=== PATIENT | male | born 1930 | race Caucasian/White ===

== ENCOUNTER 2016-12-01 06:25 | Day surgery (SDC) | payer MEDICARE ==
[2016-12-01] VITALS (7 sets, daily range): BP systolic 110–177; BP diastolic 57–73; PULSE 57–60; RESP 14–18; TEMP 97.5–98.1; O2SAT 60–97
[~2016-12-01] VITALS: Ht 175.3 cm; Wt 76.8 kg
[~2016-12-01 06:25] MED LIST: AMIO200T PO; AMLO10TA2 PO; APIX5TAB PO; CARV12.5 PO; CILO50TA PO; CLAR10CA3 PO; CULT10CA4 PO; DOCU100C PO; DULE200A INH; FURO80TA PO; LACT10SO47 PO; LEVO88TA2 PO; LIPI40TA PO; MIRA33504 PO; OMEP20TA PO; RENATAB6 PO; SENN8.6T81 PO; TAMS0.4C4 PO; TRAM50TA PO; VENTAER INH; [UNRECOGNIZED DRUG - CODE] TOPICAL
[2016-12-01] MEDS ORDERED: INSULIN HUMAN REGULAR 1,000 UNITS/10 ML VIAL SQ PRN (07:00)
[2016-12-01] MEDS ORDERED: METOPROLOL TARTRATE 25 MG TAB PO PRN (07:00)
[2016-12-01] MEDS ORDERED: VANCOMYCIN HCL 1000 MG ON-CALL/NS 250 ML IV SCH ×2 (07:00)
[2016-12-01] MEDS ORDERED: LACTATED RINGER'S 1000 ML IV SCH (07:00)
[2016-12-01] MEDS ORDERED: SODIUM CHLORID 0.9% 500 ML IV SCH (07:00)
[2016-12-01] MEDS ORDERED: SODIUM CHLOR 0.9% 250 ML INJ 250 ML IV ONE (08:09)
[2016-12-01] MEDS ORDERED: PROPOFOL 200 MG/20 ML AMP IV ONE (08:09)
[2016-12-01] MEDS ORDERED: ePHEDrine/NS 50 MG/5 ML SYR IV ONE (08:09)
[2016-12-01 08:19] LABS: AUTOMATED NEUTROPHIL # 4.8 TH/MM3 (1.8-7.7); BASOPHIL # 0.1 TH/MM3 (0-0.2); EOSINOPHIL # 0.2 TH/MM3 (0-0.4); EOSINOPHIL % 3.6 % (0.0-4.0); HEMATOCRIT 29.1 % (39.0-51.0); HEMO FLAGS DIFF FINAL; LYMPH % 11.8 % (9.0-44.0); LYMPHOCYTE # 0.8 TH/MM3 (1.0-4.8); MEAN CORPUSCULAR HEMOGLOBIN 34.4 PG (27.0-34.0); MEAN CORPUSCULAR HGB CONC 32.8 % (32.0-36.0); NEUT % 69.6 % (16.0-70.0); PLATELET COUNT 211 TH/MM3 (150-450); RED BLOOD COUNT 2.77 MIL/MM3 (4.50-5.90); RED CELL DISTRIBUTION WIDTH 17.6 % (11.6-17.2); WHITE BLOOD COUNT 6.9 TH/MM3 (4.0-11.0)
[2016-12-01 08:26] LABS: APTT (PATIENT) 27.3 SEC (24.3-30.1); PROTHROMBIN TIME - PATIENT 10.8 SEC (9.8-11.6)
[2016-12-01] MEDS ORDERED: MELA5TAB15 PO (08:27)
[2016-12-01] MEDS ORDERED: LOSA25TA PO (08:27)
[2016-12-01] MEDS ORDERED: ZANT150T2 PO (08:27)
[2016-12-01] MEDS ORDERED: SEVEL800 PO (08:27)
[2016-12-01] MEDS ORDERED: ROPI0.25 PO (08:27)
[2016-12-01 08:33] LABS: BICARBONATE 28.5 MEQ/L (21.0-32.0); POTASSIUM 4.6 MEQ/L (3.5-5.1)
[2016-12-01] MEDS ORDERED: fentaNYL CITRATE 250 MCG/5 ML AMP ONE (09:29)
[2016-12-01] MEDS ORDERED: MIDAZOLAM HCL 5 MG/5 ML VIAL ONE (09:29)
[2016-12-01] MEDS ORDERED: LEVOFLOXACIN 500 MG PREMIX INJ 100 ML IV ONE (09:43)
--- NOTE | 2016-12-01 10:39 | PD.RAD ---
Post Procedure Progress Note Pre Procedure Diagnosis: (1) Chronic kidney disease Post Procedure Diagnosis: (1) Chronic kidney disease Procedure Date: Dec 01, 2016 Supervising Radiologist: Marc Wang JR Proceduralist/Assist: Alexander Luis RT(R), RT Glenda(R)() Anesthesia: Conscious Sedation Plan of Activity Patient to Unit: ROPU Patient Condition: Good See PACS Report for procedural detail/treatment Central Venous Access Device Procedure 1 Left Hemodialysis Catheter Tunneled Placement dual lumen [place]: 15 Findings: Left IJ permcath placed. Functions well. OK to use Plan Remove sutures at base of left neck and holding catheter in place in 2-3 weeks. Jr. Felipe,Marc Tello MD Dec 01, 2016 10:39
[2016-12-01] MEDS ORDERED: SODIUM CHLORIDE 0.9% FLUSH 5 ML FLUSH IVF PRN (10:45)
[2016-12-01] MEDS ORDERED: HEPARIN SODIUM - IV 10,000 UNITS/10 ML VIAL IVF PRN (10:45)
--- NOTE | 2016-12-01 12:33 | RADRPT ---
EXAM DATE/TIME: 12/01/2016 09:28 [facility] COMPARISON: No previous studies available for comparison. INDICATIONS : Patient with renal failure in need of permcath placement for dialysis. Patient has a left forearm fis fernie with steal phenomena. Patient is for right arm fistula placement and ligation of the left arm fi stula. MEDICAL HISTORY : 1.Renal failure 2.Hypothyroid 3.CHF 4.AFIB 5.Sleep apnea 6.GERD SURGICAL HISTORY : 1.AAA stent 2.Cardiac cath 3.Hernia 4.AV fistula 5.Joint replacement 6.Tonsillectomy 7.Cataract surgery ENCOUNTER: Initial ACUITY: >1 year PAIN SCORE: 0/10 FLUORO TIME: 0.8 SEDATION TIME: 30 minutes ACCESS: Left internal jugular vein SEDATION: 1.) 1 mg midazolam (Versed) IV 2.) 50 mcg fentanyl (Sublimaze) IV Prophylactic antibiotics were administered with appropriate pre-procedure timing. Vancomycin within 2 hours of procedure, Ancef (or alternative) within 1 hour of procedure. DEVICE: 1. 15 Greek dual lumen 27 cm Permacath PROCEDURE : 1. Ultrasound-guided venipuncture. 2. PermaCath placement. 3. Conscious sedation with continuous EKG and oximetry monitoring. The risks, benefits and alternatives to the procedure were explained and verbal and written consent w as obtained. The site was prepped in sterile fashion. Full sterile technique was used, including ca p, mask, sterile gloves and gown and a large sterile sheet. Hand hygiene and 2% chlorhexidine and/or betadine/alcohol prep was utilized per protocol for cutaneous antisepsis. The skin and subcutaneous tissues were infiltrated with local anesthetic solution. With ultrasound and fluoroscopic guidance a dermatotomy was created over the prescribed vein. A micr opuncture set was used to access the targeted vein and serial dilatation was performed to accept the prescribed length catheter. A subcutaneous tunnel was created in a retrograde fashion the catheter w as pulled through the tunnel. The catheter was flushed and assembled and locked with heparin. The c atheter was sutured in place. Conscious sedation was performed with the prescribed dosages and duration as above. The patient tole rated the procedure well and there were no complications. EKG and oximetry remained stable throughou t the procedure. The patient was sent to post anesthesia recovery in stable condition. CONCLUSION: Uncomplicated PermaCath placement as above. Catheter functions well and is ready for use. Marc Wang Jr., MD on December 01, 2016 at 12:30 Board Certified Radiologist. This report was verified electronically.
[2016-12-01] MEDS ORDERED: HEPARIN SODIUM - SQ 10,000 UNITS/ML VIAL ONE (12:51)
[2016-12-01] MEDS ORDERED: MIDAZOLAM HCL 2 MG/2 ML VIAL ONE (13:59)
[2016-12-01] MEDS ORDERED: FAMOTIDINE 20 MG/2 ML VIAL ONE (13:59)
[2016-12-01] MEDS ORDERED: KETAMINE HCL 500 MG/5 ML VIAL ONE (14:51)
[2016-12-01] MEDS ORDERED: BUPIVACAINE/EPINEPHRINE 0.5% PF 30 ML VIAL INFIL ONE (14:58)
[2016-12-01] MEDS ORDERED: ACETAMINOPHEN/HYDROcodone 325 MG/5 MG TAB PO PRN (16:15)
[2016-12-01] MEDS ORDERED: DO NOT ADM ANY ANTICOAGULANT DRUGS XX PRN (16:15)
--- NOTE | 2016-12-01 17:22 | EKG ---
Date Performed: 12/01/2016 Time Performed: 08:07:41 PTAGE: 86 years EKG: SINUS BRADYCARDIA NONSPECIFIC ST & T-WAVE ABNORMALITY PROLONGED QT INTERVAL Compared to windy or tracing no significant change ABNORMAL ECG PREVIOUS TRACING : 08/28/2015 21.04 DOCTOR: Vincenzo Tipton Interpretating Date/Time 12/01/2016 17:20:48
[2016-12-01] MEDS ORDERED: Hemodialysis Vas Acc Cath PRN Heparin 1000 unit/ml Flush IVF (17:45)
[2016-12-01] MEDS ORDERED: Hemodialysis Vas Access Cath PRN NS Lock Flush IVF (17:45)
[2016-12-01] MEDS ORDERED: Infusaport/Implanted VAD PRN NS Lock Flush IVF (18:00)
--- NOTE | 2016-12-06 18:10 | MP ---
cc: WENCESLAO RUDOLPH DATE OF SURGERY 12/01/16 PREOPERATIVE DIAGNOSIS Steel ischemia left hand secondary to matured left brachiocephalic AV fistula. End-stage renal disease with need for permanent hemodialysis access. POSTOPERATIVE DIAGNOSIS Steel ischemia left hand secondary to matured left brachiocephalic AV fistula. End-stage renal disease with need for permanent hemodialysis access. OPERATIVE PROCEDURE Sacrifice ligation left brachiocephalic AV fistula. Creation right brachiocephalic AV fistula. SURGEON Naga Rudolph MD DENTAL CHAIRSIDE ASSISTANT AMIE Humphrey ANESTHESIA Local MAC DESCRIPTION OF PROCEDURE With the patient in the supine position IV sedation was induced, both arms thoroughly prepped with Betadine and draped in a sterile fashion. Following a protocol time-out, the skin and subcutaneous tissue overlying the left brachiocephalic arteriovenous anastomosis was infiltrated with 0.5% Marcaine with epinephrine. A curvilinear incision was performed within the old AV fistula creation scar. The arterialized cephalic vein was circumferentially mobilized immediately proximal to the brachial artery anastomosis and ligated with 4-0 silk. The incision was closed with interrupted subcuticular 4-0 Monocryl reinforced with Steri-Strips and dressed with sterile gauze. Attention was then directed to creation of a right brachiocephalic AV fistula. The skin and subcutaneous tissue along the medial supra antecubital region was infiltrated with 0.5% Marcaine with epinephrine. A curvilinear 3 cm incision was performed along the medial supra antecubital region through which the cephalic vein and brachial artery were circumferentially mobilized. The vein was ligated distally with 4-0 silk, transected proximal to the ligature, spatulated on end, flushed with heparinized saline and occluded with a Yasargil clip. The brachial artery was occluded proximally and distally with Yasargil clips. A vertical approximately 4 mm arteriotomy was performed along the anterolateral surface. The artery was flushed proximally and distally with heparinized saline. An end-to-side anastomosis was accomplished between the vein and arteriotomy with continuous 7-0 Prolene. The occluding Yasargil clips were removed reestablishing pulsatile flow within the brachial artery as well as into the cephalic vein. Strict hemostasis was assured with normal perfusion right hand, easily palpable right radial pulse, robust biphasic Doppler flow within the palmar arch. The incision was closed with interrupted subcuticular 4-0 Monocryl. Steri-Strips and sterile dressing were applied. Instrument, needle, sponge count correct x2. There were no operative complications. The patient returned to the recovery room in stable condition having tolerated procedure well. MD ROYAL Orr/ /6:24 PM /5:53 PM
== END 2016-12-01 12:50 | disposition home or self-care (01) ==
LOC: HSDC 06:25 → HRIP 07:42 → HROP 12:50
PROVIDERS: ATTEND Surgery Vascular Surgery
DX: T82.898A Other specified complication of vascular prosthetic devices, implants and grafts, initial encounter (principal); N18.6 End stage renal disease; Z99.2 Dependence on renal dialysis
CPT/HCPCS: 00532; 01844; 36558; 36821; 36838; 76937; 77001; 80048; 85025; 85610; 85730; 93005; 99152; 99153; C1750; C1769; J1642; J1644; J1956; J2250; J3010; J3370; J7040; J7050

== ENCOUNTER 2016-12-20 09:11 | Inpatient (IN) | payer MEDICARE ==
[~2016-12-20] VITALS: Ht 177.8 cm; Wt 80.0 kg
[~2016-12-20 09:11] MED LIST changes: +LOSA25TA PO; +MELA5TAB15 PO; -OMEP20TA PO; +ROPI0.25 PO; +SEVEL800 PO; +ZANT150T2 PO
--- NOTE | 2016-12-20 09:21 | PD ---
HPI Chief Complaint: dizziness Time Seen by Provider: 09:20 Travel History International Travel<30 days: No Contact w/Intl Traveler<30days: No Traveled to known affect area: No History of Present Illness HPI 86-year-old male came to the emergency room with his with history of dizziness, lower back pain for past couple days. Patient has been diagnosed with lumbar fracture few days ago and is in pain. Patient is on pain medications. This morning when he was complaining of dizziness his noticed that his pulse was in the 40s. That's when she called 911. Patient has multiple comorbidities including end-stage renal disease and hemodialysis dependent. He is due for his dialysis today. Patient is awake and answering questions appropriately. His heart rate is in high 50s to low 60s. He is on carvedilol and took a dose last night as well as this morning. No history of vomiting or diarrhea. No history of headache or chest pain. Patient has history of PA in the past. He is still complaining of the lower back pain. It gets worse every time he moves. His says that the pain started 2 weeks ago but there was a CAT scan done just couple days ago which showed the fracture. [facility] Past Medical History Narrative Medical List of his past medical history as reviewed from the nursing note. Hx Anticoagulant Therapy: Yes Arthritis: Yes Asthma: No Atrial Fibrillation: Yes Autoimmune Disease: No Heart Rhythm Problems: Yes Cancer: Yes (PROSTATE, MELANOMA-back, face ) Cardiac Catheterization: Yes Cardiovascular Problems: Yes (AFIB,CHF) High Cholesterol: Yes Chemotherapy: Yes (x 1 treatment ) Chest Pain: No Congestive Heart Failure: Yes COPD: No Cerebrovascular Accident: Yes Diabetes: No Diminished Hearing: No Endocrine: No Gastrointestinal Disorders: Yes (GERD) GERD: Yes Gout: Yes Genitourinary: Yes (BPH) Hepatitis: No Hiatal Hernia: No Hypertension: Yes Immune Disorder: No Implanted Vascular Access Dvce: Yes Musculoskeletal: Yes (ARTHRITIS) Neurologic: Yes (TIA-2013) Psychiatric: No Reproductive: No Respiratory: Yes Immunizations Current: Yes Migraines: No Radiation Therapy: Yes (seed implant ) Seizures: No Sleep Apnea: Yes (BIPAP) Thyroid Disease: Yes (recently dx) Ulcer: No Past Surgical History Abdominal Surgery: Yes (ING. HERNIA REP., AAA STENT) AICD: No Arteriovenous Shunt: No Body Medical Devices: AAA STENT Cardiac Surgery: Yes Ear Surgery: No Endocrine Surgery: No Eye Surgery: Yes (RIGHT CATARACT EXTRACT.) Genitourinary Surgery: Yes (CIRCUMCISION, PROSTATE SEEDING) Gynecologic Surgery: No Insulin Pump: No Joint Replacement: Yes (FINGERS) Oral Surgery: Yes (T & A) Pacemaker: No Thoracic Surgery: No Tonsillectomy: Yes Other Surgery: Yes (Tonsilectomy, aortic bypass, cataract ou, ) Social History Alcohol Use: Yes (1-2 glasses of wine a week) Tobacco Use: No (quit 40 years ago) Substance Use: No Allergies-Medications (Allergen,Severity, Reaction): Coded Allergies: Macrodantin (Verified Allergy, Severe, CAUSED "C DIFF" INFECTION, 12/01/16) Penicillin (Verified Allergy, Mild, RASH, 12/01/16) Vancomycin (Verified Adverse Reaction, Intermediate, RASH, 12/01/16) Comments List of his allergies reviewed from the nursing note. Reported Meds & Prescriptions Reported Meds & Active Scripts Active Reported Melatonin 5 Mg Tab 3 Mg PO HS Ropinirole 0.25 Mg Tab 0.25 Mg PO HS Renvela (Sevelamer Carbonate) 800 Mg Tab 1,600 Mg PO TID Losartan (Losartan Potassium) 25 Mg Tab 25 Mg PO DAILY Zantac (Ranitidine HCl) 150 Mg Tab 150 Mg PO DAILY Efudex Topical (Fluorouracil Topical) 5 % Cream 1 Applic TOPICAL BID Dulera 120 Act Inh (Mometasone-Formoterol 120 Act Inh) 200-5 Mcg/Act Inh 2 Puff INH BID Culturelle (Lactobacillus Rhamnosus (GG)) 10 B Cell Cap 50 Mg PO DAILY Docusate Sodium 100 Mg Cap 100 Mg PO BID Cilostazol 50 Mg Tab 50 Mg PO BID Coreg (Carvedilol) 12.5 Mg Tab 12.5 Mg PO BID Lipitor (Atorvastatin Calcium) 40 Mg Tab 40 Mg PO HS Eliquis (Apixaban) 5 Mg Tab 5 Mg PO DAILY Amlodipine (Amlodipine Besylate) 10 Mg Tab 5 Mg PO DAILY Amiodarone (Amiodarone HCl) 200 Mg Tab 200 Mg PO DAILY Ventolin Hfa 18 GM Inh (Albuterol Sulfate) 90 Mcg/Act Aer 2 Puff INH Q6H PRN Enulose Liq (Lactulose (Encephalopathy) Liq) 10 Gm/15 Ml Soln 30 Ml PO Q6HR PRN Furosemide 80 Mg Tab 80 Mg PO BID Levothyroxine (Levothyroxine Sodium) 88 Mcg Tab 125 Mcg PO DAILY Claritin (Loratadine) 10 Mg Cap 5 Mg PO BID Miralax Powder (Polyethylene Glycol 3350 Powder) 17 Gm Powd 17 Gm PO DAILY Mix and dissolve one measuring cap-ful (17 grams) in water or juice. [place] Rx (B-Complex W/ C & Folic Acid) 1 Tab 1 Tab PO DAILY Sennosides 8.6 Mg Tab 17.2 Mg PO HS Tamsulosin (Tamsulosin HCl) 0.4 Mg Cap 0.4 Mg PO HS Tramadol (Tramadol HCl) 50 Mg Tab 50 Mg PO Q4H PRN Narrative Medication List of his home medications reviewed from the nursing note. Review of Systems Except as stated in HPI: all other systems reviewed are Neg Physical Exam Narrative GENERAL: Awake, alert, elderly, frail, moderate distress SKIN: Warm and dry. HEAD: Atraumatic. Normocephalic. EYES: Pupils equal and round. No scleral icterus. No injection or drainage. ENT: No nasal bleeding or discharge. Mucous membranes pink and moist. NECK: Trachea midline. No JVD. CARDIOVASCULAR: Regular rate and rhythm. No murmur appreciated. RESPIRATORY: No accessory muscle use. Clear to auscultation. Breath sounds equal bilaterally. GASTROINTESTINAL: Abdomen soft, non-tender, nondistended. Hepatic and splenic margins not palpable. MUSCULOSKELETAL: No obvious deformities. No clubbing. No cyanosis. No edema. NEUROLOGICAL: Awake and alert. No obvious cranial nerve deficits. Motor grossly within normal limits. Normal speech. PSYCHIATRIC: Appropriate mood and affect; insight and judgment normal. Data Data Last Documented VS Vital Signs Date Time Temp Pulse Resp B/P Pulse Ox O2 Delivery O2 Flow Rate FiO2 12/20/16 11:41 61 20 155/69 97 Nasal Cannula 2 Orders Electrocardiogram (12/20/16 09:41) Prothrombin Time / Inr (Pt) (12/20/16 09:41) Complete Blood Count With Diff (12/20/16 09:41) Comprehensive Metabolic Panel (12/20/16 09:41) Creatine Kinase (Cpk) (12/20/16 09:41) Troponin I (12/20/16 09:41) Ct Brain W/O Iv Contrast(Rout) (12/20/16 09:41) Chest, Single Ap (12/20/16 09:41) Ecg Monitoring (12/20/16 09:41) Iv Access Insert/Monitor (12/20/16 09:41) Oximetry (12/20/16 09:41) Sodium Chloride 0.9% Flush (Ns Flush) (12/20/16 09:45) Splint Or Brace Apply/Monitor (12/20/16 09:41) Acetaminophen (Tylenol) (12/20/16 11:30) Brace Lso-Orthosis (12/20/16 ) Consult Nephrology (12/20/16 ) Admit Order (Ed Use Only) (12/20/16 11:55) Labs Laboratory Tests Test 12/20/16 09:45 White Blood Count 6.1 TH/MM3 Red Blood Count 3.11 MIL/MM3 Hemoglobin 10.4 GM/DL Hematocrit 30.8 % Mean Corpuscular Volume 99.0 FL Mean Corpuscular Hemoglobin 33.4 PG Mean Corpuscular Hemoglobin 33.8 % Concent Red Cell Distribution Width 16.0 % Platelet Count 240 TH/MM3 Mean Platelet Volume 9.0 FL Neutrophils (%) (Auto) 77.4 % Lymphocytes (%) (Auto) 8.2 % Monocytes (%) (Auto) 12.8 % Eosinophils (%) (Auto) 0.8 % Basophils (%) (Auto) 0.8 % Neutrophils # (Auto) 4.7 TH/MM3 Lymphocytes # (Auto) 0.5 TH/MM3 Monocytes # (Auto) 0.8 TH/MM3 Eosinophils # (Auto) 0.1 TH/MM3 Basophils # (Auto) 0.0 TH/MM3 CBC Comment DIFF FINAL Differential Comment Prothrombin Time 12.3 SEC Prothromb Time International 1.1 RATIO Ratio Sodium Level 136 MEQ/L Potassium Level 4.3 MEQ/L Chloride Level 99 MEQ/L Carbon Dioxide Level 26.0 MEQ/L Anion Gap 11 MEQ/L Blood Urea Nitrogen 27 MG/DL Creatinine 3.82 MG/DL Estimat Glomerular Filtration 15 ML/MIN Rate Random Glucose 118 MG/DL Calcium Level 9.7 MG/DL Total Bilirubin 0.6 MG/DL Aspartate Amino Transf 18 U/L (AST/SGOT) Alanine Aminotransferase 20 U/L (ALT/SGPT) Alkaline Phosphatase 96 U/L Total Creatine Kinase 37 U/L Troponin I 0.02 NG/ML Total Protein 6.0 GM/DL Albumin 2.9 GM/DL MDM Medical Decision Making Medical Screen Exam Complete: Yes Emergency Medical Condition: Yes Medical Record Reviewed: Yes Interpretation(s) Twelve-lead EKG was reviewed by me. Normal sinus rhythm, normal axis, bradycardia, poor R-wave progression, nonspecific ST-T wave changes, first- degree AV block. Heart rate of 59 bpm. Differential Diagnosis Symptomatic bradycardia, aortic to light abnormalities, intracranial bleed Narrative Course 11:26 AM blood test results of back and patient does have elevated creatinine from his end-stage renal disease. Rest of the blood test results are within normal limits. Patient is asking something for his back pain. I have put a call out for the ekg monitor tech for dialysis. Patient should be admitted for at least telemetry cardiac monitored observation. 11:54 AM I spoke with Dr. Perez who is covering for Dr. Hall today. He will get the dialysis arranged. Patient has been admitted for observation under the hospitalist. Procedures EKG Prior to Arrival: Yes Physician Communication Physician Communication Dr. Perez Diagnosis Primary Impression: Symptomatic bradycardia Additional Impressions: First degree AV block Dizziness Lumbar vertebral fracture Intractable pain ESRD (end stage renal disease) Dependent on hemodialysis Admitting Information Admitting Physician Requests: Observation Monica Oliver MD Dec 20, 2016 09:21
[2016-12-20 09:22] VITALS: BP 146/66; PULSE 60; RESP 17; O2SAT 100
[2016-12-20] MEDS ORDERED: SODIUM CHLORIDE 0.9% FLUSH 5 ML FLUSH IVF PRN (09:45)
[2016-12-20 09:55] VITALS: O2SAT 100
[2016-12-20 10:10] LABS: AUTOMATED NEUTROPHIL # 4.7 TH/MM3 (1.8-7.7); BASOPHIL % 0.8 % (0.0-2.0); EOSINOPHIL # 0.1 TH/MM3 (0-0.4); EOSINOPHIL % 0.8 % (0.0-4.0); HEMATOCRIT 30.8 % (39.0-51.0); HEMO FLAGS DIFF FINAL; LYMPH % 8.2 % (9.0-44.0); LYMPHOCYTE # 0.5 TH/MM3 (1.0-4.8); MEAN CORPUSCULAR HEMOGLOBIN 33.4 PG (27.0-34.0); MEAN CORPUSCULAR HGB CONC 33.8 % (32.0-36.0); MONO % 12.8 % (0.0-8.0); NEUT % 77.4 % (16.0-70.0); PLATELET COUNT 240 TH/MM3 (150-450); RED BLOOD COUNT 3.11 MIL/MM3 (4.50-5.90); WHITE BLOOD COUNT 6.1 TH/MM3 (4.0-11.0)
[2016-12-20 10:19] LABS: INTERNATIONAL NORMALIZED RATIO 1.1 RATIO; PROTHROMBIN TIME - PATIENT 12.3 SEC (9.8-11.6)
--- NOTE | 2016-12-20 10:19 | RADRPT ---
EXAM DATE/TIME: 12/20/2016 10:01 [facility] COMPARISON: CHEST SINGLE AP, August 31, 2015, 10:11. INDICATIONS : Possible CVA, Weakness. MEDICAL HISTORY : Chronic obstructive pulmonary disease. SURGICAL HISTORY : None. ENCOUNTER: Initial ACUITY: 1 day PAIN SCORE: 0/10 LOCATION: Bilateral chest FINDINGS: A single view of the chest demonstrates cardiomegaly and increased pulmonary vascularity. Left-sided tunnel catheter with tip in the SVC. No pneumothorax. Atherosclerotic changes of the thoracic aorta. The cardiomediastinal contours are unremarkable. Osseous structures are intact. CONCLUSION: 1. Cardiomegaly and increased pulmonary vascularity. No pulmonary edema. 2. Left-sided jugular vascular catheter. Kash Howard MD on December 20, 2016 at 10:16 Board Certified Radiologist. This report was verified electronically.
--- NOTE | 2016-12-20 10:31 | RADRPT ---
EXAM DATE/TIME: 12/20/2016 10:08 [facility] COMPARISON: CT BRAIN W/O CONTRAST, December 27, 2015, 15:08. INDICATIONS : Hypertension, weakness, dizziness. RADIATION DOSE: 40.97 CTDIvol (mGy) MEDICAL HISTORY : Cardiovascular disease. Carcinoma, prostate. Hypertension. SURGICAL HISTORY : Tonsillectomy. Carotid endarterectomy. ENCOUNTER: Initial ACUITY: 1 day PAIN SCALE: 0/10 LOCATION: cranial TECHNIQUE: Multiple contiguous axial images were obtained of the head. Using automated exposure control and adj ustment of the mA and/or kV according to patient size, radiation dose was kept as low as reasonably a chievable to obtain optimal diagnostic quality images. FINDINGS: CEREBRUM: Scattered areas of low attenuation throughout the white matter. The ventricles are normal for age. N o evidence of midline shift, mass lesion, hemorrhage or acute infarction. No extra-axial fluid colle ctions are seen. POSTERIOR FOSSA: The cerebellum and brainstem are intact. The 4th ventricle is midline. The cerebellopontine angle i s unremarkable. EXTRACRANIAL: The visualized portion of the orbits is intact. SKULL: The calvaria is intact. No evidence of skull fracture. CONCLUSION: No acute intracranial disease. Nonspecific white matter changes. Ksah Howard MD on December 20, 2016 at 10:29 Board Certified Radiologist. This report was verified electronically.
[2016-12-20 10:33] LABS: ALKALINE PHOSPHATASE 96 U/L (45-117); ALT (GPT) 20 U/L (12-78); ANION GAP 11 MEQ/L (5-15); AST (GOT) 18 U/L (15-37); BLOOD UREA NITROGEN 27 MG/DL (7-18); CHLORIDE 99 MEQ/L (98-107); CREATINE KINASE 37 U/L (39-308); GLOMERULAR FILTRATION RATE 15 ML/MIN (>89); POTASSIUM 4.3 MEQ/L (3.5-5.1); SODIUM (NA) 136 MEQ/L (136-145); TOTAL BILIRUBIN ADULT 0.6 MG/DL (0.2-1.0)
[2016-12-20] MEDS ORDERED: ACETAMINOPHEN 325 MG TAB PO ONE (11:30)
[2016-12-20 11:41] VITALS: BP 155/69; PULSE 61; RESP 20; O2SAT 97
[2016-12-20] MEDS ORDERED: SODIUM CHLOR 0.9% 1000 ML INJ 1,000 ML IV PRN (11:58)
[2016-12-20] MEDS ORDERED: SENNOSIDES 8.6 MG TAB PO PRN (12:00)
[2016-12-20] MEDS ORDERED: ONDANSETRON HCL 4 MG/2 ML VIAL IV PRN (12:00)
[2016-12-20] MEDS ORDERED: ACETAMINOPHEN 325 MG TAB PO PRN ×3 (12:00)
[2016-12-20] MEDS ORDERED: NITROGLYCERIN 0.4 MG SL 25 TABS/BTL SL PRN (12:00)
[2016-12-20] MEDS ORDERED: GELATIN 12 MM/7 MM FOAM TOP PRN (12:00)
[2016-12-20] MEDS ORDERED: diphenhydrAMINE HCL 25 MG CAP PO PRN (12:00)
[2016-12-20] MEDS ORDERED: HEPARIN SODIUM - IV 10,000 UNITS/10 ML VIAL IVF PRN (12:00)
[2016-12-20] MEDS ORDERED: MANNITOL 12.5 GM/50 ML VIAL IV PRN (12:00)
[2016-12-20] MEDS ORDERED: SODIUM CHLORIDE 0.9% FLUSH 5 ML FLUSH FLUSH PRN (12:00)
[2016-12-20] MEDS ORDERED: HEPARIN SODIUM - SQ 10,000 UNITS/ML VIAL SQ SCH (12:00)
[2016-12-20] MEDS ORDERED: NALOXONE HCL 0.4 MG/ML AMP IV PRN (12:00)
[2016-12-20] MEDS ORDERED: cloNIDine HCL 0.1 MG TAB PO PRN (12:00)
[2016-12-20] MEDS: DOCUSATE SODIUM 100 MG CAP PO SCH (12:00)
[2016-12-20] MEDS: EPOETIN ALFA 10,000 UNITS/ML VIAL IV PRN (12:52)
[2016-12-20] MEDS: HEPARIN SODIUM - IV 10,000 UNITS/10 ML VIAL PRN (12:52)
[2016-12-20] MEDS: SODIUM CHLORIDE 0.9% FLUSH 5 ML FLUSH IVF PRN (12:53)
[2016-12-20] MEDS: GENTAMICIN SULFATE (DIALYSIS USE ONLY) 20 MG/2 ML VIAL IV PRN (12:53)
[2016-12-20] MEDS: SODIUM CHLOR 0.9% 1000 ML INJ 1,000 ML IV PRN ×2 (12:53→12:54)
--- NOTE | 2016-12-20 13:11 | EKG ---
Date Performed: 12/20/2016 Time Performed: 09:33:02 PTAGE: 86 years EKG: SINUS BRADYCARDIA WITH FIRST DEGREE AV BLOCK MODERATE INTRAVENTRICULAR CONDUCTION DELAY PRO LONGED QT INTERVAL ABNORMAL ECG Compared to prior tracing no significant change PREVIOUS TRACING : 12/01/2016 08.07 DOCTOR: Harley Mobley Interpretating Date/Time 12/20/2016 13:10:02
[2016-12-20 16:00] VITALS: BP 117/59; PULSE 72; RESP 20; TEMP 96.9; O2SAT 98
[2016-12-20] MEDS ORDERED: LACTULOSE SYRUP 20 GM/30 ML CUP PO PRN (18:00)
[2016-12-20] MEDS ORDERED: ALBUTEROL SULFATE 90 MCG/ACT HFA 8 GM INHALER INH PRN (18:00)
[2016-12-20] MEDS ORDERED: BISACODYL 10 MG SUPP RECTAL ONE (18:00)
--- NOTE | 2016-12-20 18:04 | HHI.HP ---
[facility] Service [facility] Primary Care Physician Myla Upton MD Admission Diagnosis symptomatic bradycardia, ESRD, hemodialysis dependent dizziness Diagnoses: Chief Complaint: Dizziness Travel History International Travel<30 Days: No Contact w/Intl Traveler <30 Da: No Traveled to Known Affected Are: No History of Present Illness The patient is an 86-year-old male with a past medical history of CHF, atrial fibrillation and end-stage renal disease on dialysis is presenting to the hospital after an episode of dizziness. He said he was sitting at a table when all of a sudden he started to feel lightheaded and dizzy. He had no symptoms prior to the episode. He denied any chest pain, shortness of breath, headache, visual changes or strange smells. He said that during the episode he checked his vital signs and his blood pressure was normal but his heart rate was noted to be in the 40s. He was taken to the hospital for further evaluation where an EKG was done which showed first degree AV block. The patient has had episodes of hypotension at home and his primary care doctor held a couple of his blood pressure medications including Coreg but resumed it when his blood pressure returned to elevated levels during dialysis. The patient also complains of 10 out of 10 pain in his lower back. He said recently he has sustained a compression fracture which was verified by imaging and he was waiting to be seen by Dr. Wynn of orthopedic surgery. He says when he does not move his back pain is a 0 out of 10 but it does get to 10 out of 10 severity when he does move. He says he tries to avoid narcotic pain medications because it leads to severe constipation which he has been struggling with. He says he is on a rather extensive bowel regimen. Review of Systems As per the history of present illness otherwise 10 point review of systems. Past Family Social History Past Medical History CHF Atrial fibrillation Hypothyroidism Hyperlipidemia Peripheral vascular disease TIA Anemia GERD Adhesive capsulitis of shoulder Prostate cancer (beads) History of C. diff Melanoma Past Surgical History Aortic-bifemoral bypass Bilateral carotid endarterectomy Tonsillectomy Partial right index finger resection Allergies: Coded Allergies: Macrodantin (Verified Allergy, Severe, CAUSED "C DIFF" INFECTION, 12/01/16) Penicillin (Verified Allergy, Mild, RASH, 12/01/16) Vancomycin (Verified Adverse Reaction, Intermediate, RASH, 12/01/16) Active Ordered Medications Current Medications Medications (Trade) Dose Ordered Sig/Bill Route Start Time Stop Time Status Last Admin (NS Flush) 2 ml UNSCH PRN FLUSH 12/20/16 12:00 (NS Flush) 2 ml BID FLUSH 12/20/16 21:00 (Tylenol) 650 mg Q4H PRN PO 12/20/16 12:00 (Colace) 100 mg Q12H PO 12/20/16 12:00 (Heparin Inj) 5,000 units Q8H SQ 12/20/16 12:00 (Tylenol) 650 mg Q6H PRN PO 12/20/16 12:00 Naloxone HCl 0.4 mg 0.4 mg UNSCH PRN IV 12/20/16 12:00 (NS 1000 ml Inj) 1,000 ml @ 0 mls/hr Q0M PRN IV 12/20/16 11:58 12/20/16 12:53 Heparin Sodium (Porcine) 8000 units 8,000 units UNSCH PRN IVF 12/20/16 12:00 Sodium Chloride 1,000 ml @ 200 mls/hr Q5H PRN IV 12/20/16 11:58 12/20/16 12:54 (NS 1000 ml Inj) 1,000 ml @ 0 mls/hr Q0M PRN IV 12/20/16 11:58 (Mannitol Inj) 12.5 gm UNSCH PRN IV 12/20/16 12:00 (Albumin 25% Inj) 25 gm UNSCH PRN IV 12/20/16 12:00 (NS Flush) 5 ml UNSCH PRN IVF 12/20/16 12:00 12/20/16 12:53 (Heparin Inj) UNSCH PRN .XX 12/20/16 12:00 12/20/16 12:52 (Gentamicin (Dialysis) Inj) 20 mg UNSCH PRN IV 12/20/16 12:00 12/20/16 12:53 (Zofran Inj) 4 mg UNSCH PRN IV 12/20/16 12:00 (Tylenol) 650 mg UNSCH PRN PO 12/20/16 12:00 (Benadryl) 25 mg UNSCH PRN PO 12/20/16 12:00 (Nitrostat Sl) 0.4 mg UNSCH PRN SL 12/20/16 12:00 (Catapres) 0.1 mg UNSCH PRN PO 12/20/16 12:00 (Epogen Inj) 6,000 units UNSCH PRN IV 12/20/16 12:00 12/20/16 12:52 (Gelfoam 12 Mm/7 Mm Top) 1 foam UNSCH PRN TOP 12/20/16 12:00 (Proair Hfa Inh) 2 puff Q6H PRN INH 12/20/16 18:00 UNV (Cordarone) 200 mg DAILY PO 12/21/16 09:00 UNV (Eliquis) 5 mg DAILY PO 12/21/16 09:00 UNV (Lipitor) 40 mg HS PO 12/20/16 21:00 UNV (Pletal) 50 mg BID PO 12/20/16 21:00 UNV (Lasix) 80 mg BID PO 12/20/16 21:00 UNV (Synthroid) 125 mcg DAILY PO 12/21/16 09:00 UNV (Claritin) 5 mg BID PO 12/20/16 21:00 UNV (Cozaar) 25 mg DAILY PO 12/21/16 09:00 UNV (Melatonin) 3 mg HS PO 12/20/16 21:00 UNV (Miralax) 17 gm DAILY PO 12/20/16 18:00 UNV (Zantac) 150 mg DAILY PO 12/21/16 09:00 UNV (Requip) 0.25 mg HS PO 12/20/16 21:00 UNV (Senokot) 17.2 mg HS PO 12/20/16 21:00 UNV (Renvela) 1,600 mg TID PO 12/20/16 18:00 UNV (Flomax) 0.4 mg HS PO 12/20/16 21:00 UNV Non-Formulary Medication 1 applic BID TOPICAL 12/20/16 21:00 UNV Non-Formulary Medication 50 mg DAILY PO 12/21/16 09:00 UNV Non-Formulary Medication 30 ml Q6HR PRN PO 12/20/16 18:00 UNV Non-Formulary Medication 2 puff BID INH 12/20/16 21:00 UNV (Lactulose Liq) 30 ml DAILY PO 12/20/16 18:00 UNV (Dulcolax Supp) 10 mg ONCE ONCE RECTAL 12/20/16 18:00 12/20/16 18:01 UNV (Roxicodone) 5 mg Q4H PRN PO 12/20/16 18:00 UNV Family History Mother: , lung cancer Father: in 70s from heart attack Social History The pt quit smoking a long time ago. He does not drink. Physical Exam Vital Signs Vital Signs Date Time Temp Pulse Resp B/P Pulse Ox O2 Delivery O2 Flow Rate FiO2 12/20/16 16:00 96.9 72 20 117/59 98 12/20/16 11:41 61 20 155/69 97 Nasal Cannula 2 12/20/16 09:55 100 Room Air 12/20/16 09:32 100 Room Air 12/20/16 09:22 60 17 146/66 100 Physical Exam GENERAL: Awake, alert, elderly, no apparent distress. SKIN: Warm and dry. HEAD: Atraumatic. Normocephalic. EYES: Pupils equal and round. No scleral icterus. No injection or drainage. ENT: No nasal bleeding or discharge. Mucous membranes pink and moist. NECK: Trachea midline. No JVD. CARDIOVASCULAR: Regular rate and rhythm. Harsh grade 3 systolic murmur appreciated. RESPIRATORY: No accessory muscle use. Clear to auscultation. Breath sounds equal bilaterally. GASTROINTESTINAL: Abdomen soft, non-tender, nondistended. Hepatic and splenic margins not palpable. MUSCULOSKELETAL: In a lumbar brace. No obvious deformities. No clubbing. No cyanosis. No edema. NEUROLOGICAL: Awake and alert. No obvious cranial nerve deficits. Motor grossly within normal limits. Normal speech. PSYCHIATRIC: Appropriate mood and affect; insight and judgment normal. Laboratory Laboratory Tests Test 12/20/16 09:45 White Blood Count 6.1 Red Blood Count 3.11 Hemoglobin 10.4 Hematocrit 30.8 Mean Corpuscular Volume 99.0 Mean Corpuscular Hemoglobin 33.4 Mean Corpuscular Hemoglobin 33.8 Concent Red Cell Distribution Width 16.0 Platelet Count 240 Mean Platelet Volume 9.0 Neutrophils (%) (Auto) 77.4 Lymphocytes (%) (Auto) 8.2 Monocytes (%) (Auto) 12.8 Eosinophils (%) (Auto) 0.8 Basophils (%) (Auto) 0.8 Neutrophils # (Auto) 4.7 Lymphocytes # (Auto) 0.5 Monocytes # (Auto) 0.8 Eosinophils # (Auto) 0.1 Basophils # (Auto) 0.0 CBC Comment DIFF FINAL Differential Comment Prothrombin Time 12.3 Prothromb Time International 1.1 Ratio Sodium Level 136 Potassium Level 4.3 Chloride Level 99 Carbon Dioxide Level 26.0 Anion Gap 11 Blood Urea Nitrogen 27 Creatinine 3.82 Estimat Glomerular Filtration 15 Rate Random Glucose 118 Calcium Level 9.7 Total Bilirubin 0.6 Aspartate Amino Transf 18 (AST/SGOT) Alanine Aminotransferase 20 (ALT/SGPT) Alkaline Phosphatase 96 Total Creatine Kinase 37 Troponin I 0.02 Total Protein 6.0 Albumin 2.9 Result Diagram: 12/20/1694412/20/16944 Imaging Last Impressions Head CT 12/20/16940 Signed Impressions: Service Date/Time: Tuesday, December 20, 2016 10:08 - CONCLUSION: No acute intracranial disease. Nonspecific white matter changes. Kash Howard MD Chest X-Ray 12/20/16940 Signed Impressions: Service Date/Time: Tuesday, December 20, 2016 10:01 - CONCLUSION: 1. Cardiomegaly and increased pulmonary vascularity. No pulmonary edema. 2. Left-sided jugular vascular catheter. Kash Howard MD Assessment and Plan Assessment and Plan Dizziness/ bradycardia The pt's heart rate was in the 40s during his episode of dizziness. He is on amiodarone and Coreg. EKG with 1st degree AVB and conduction delay. - hold Coreg and continue amiodarone. - telemetry. - EKG in AM. - cardiology consult if no improvement. - trend trops. Atrial fibrillation On amiodarone and Coreg as an outpt, along with anticoagulation. - hold Coreg as above. - likely cardiology consult in AM. - telemetry. - continue anticoagulation. L4 fracture The pt was supposed to follow up with Dr. Wynn. - pain control with a bowel regimen. - consult orthopedic surgery. - PT/ OT. ESRD On dialysis. Nephrology consult appreciated. - continue dialysis per nephrology. - continue diuresis. Constipation The patient reports severe constipation. - Extensive bowel regimen ordered. CHF Pt appears euvolemic. CXR with increased vascularity. - continue volume management with dialysis. - continue cardiac regimen. PPx: Eliquis Code Status Full. Discussed Condition With Pt, pt's , nurse, Dr. Oliver. Avtar Beltran DO Dec 20, 2016 18:04
[2016-12-20] MEDS: LACTULOSE SYRUP 20 GM/30 ML CUP PO SCH (18:29)
[2016-12-20] MEDS: POLYETHYLENE GLYCOL 17 GM PKG PO SCH (18:29)
[2016-12-20] MEDS: SEVELAMER CARBONATE 800 MG TAB PO SCH (18:30)
[2016-12-20 19:48] VITALS: BP 121/88; PULSE 74; RESP 16; TEMP 97.8; O2SAT 98
--- NOTE | 2016-12-20 19:56 | RADRPT ---
EXAM DATE/TIME: 12/20/2016 19:26 [place] COMPARISON: No previous studies available for comparison. INDICATIONS : Patient states they had previous fracture in L-Spine. Complains of lower back pain. MEDICAL HISTORY : None. SURGICAL HISTORY : None. ENCOUNTER: Initial ACUITY: 1 week PAIN SCORE: 4/10 LOCATION: L-Spine FINDINGS: Two view examination was performed. There is a moderate compression deformity of L4. No subluxation. Osteopenia. CONCLUSION: 1. Moderate compression fracture of L4 of unknown age. Osteopenia. Miles Wheeler MD on December 20, 2016 at 19:54 Board Certified Radiologist. This report was verified electronically.
[2016-12-20 20:00] VITALS: PULSE 72
[2016-12-20] MEDS ORDERED: MOMETASONE FORMOTEROL INH SCH (21:00)
[2016-12-20] MEDS ORDERED: FLUOROURACIL TOPICAL SCH (21:00)
[2016-12-20] MEDS: TAMSULOSIN HCL 0.4 MG CAP PO SCH (21:23)
[2016-12-20] MEDS: ATORVASTATIN 40 MG TAB PO SCH (21:23)
[2016-12-20] MEDS: CILOSTAZOL 50 MG TAB PO SCH (21:24)
[2016-12-20] MEDS: FUROSEMIDE 80 MG TAB PO SCH (21:24)
[2016-12-20] MEDS: SENNOSIDES 8.6 MG TAB PO SCH (21:24)
[2016-12-20] MEDS: LORATADINE 10 MG TAB PO SCH (21:24)
[2016-12-20] MEDS: MELATONIN 5 MG TAB PO SCH (21:24)
[2016-12-20] MEDS: SODIUM CHLORIDE 0.9% FLUSH 5 ML FLUSH FLUSH SCH (21:27)
--- NOTE | 2016-12-20 22:30 | PD.CONS ---
cc: Ayo Myers MD HPI Service Orthopedic Surgeons Consult Requested By Dr. Beltran Reason for Consult L4 compression fracture Primary Care Physician Myla Upton MD Admission Diagnosis symptomatic bradycardia, ESRD, hemodialysis dependent dizziness Diagnoses: (1) Symptomatic bradycardia (2) First degree AV block (3) CHF (congestive heart failure) (4) Acute on chronic kidney failure (5) Hypothyroidism (6) Hypertension Chief Complaint: Dizziness, back pain History of Present Illness The patient is an 86-year-old male with a past medical history of CHF, atrial fibrillation and end-stage renal disease on dialysis is presenting to the hospital after an episode of dizziness. He said he was sitting at a table when all of a sudden he started to feel lightheaded and dizzy. He had no symptoms prior to the episode. He denied any chest pain, shortness of breath, headache, visual changes or strange smells. He said that during the episode he checked his vital signs and his blood pressure was normal but his heart rate was noted to be in the 40s. He was taken to the hospital for further evaluation where an EKG was done which showed first degree AV block. The patient has had episodes of hypotension at home and his primary care doctor held a couple of his blood pressure medications including Coreg but resumed it when his blood pressure returned to elevated levels during dialysis. The patient also complains of 10 out of 10 pain in his lower back. He said recently he has sustained a compression fracture which was verified by imaging and he was waiting to be seen by Dr. Wynn although does not have an appointment. He says when he does not move his back pain is a 0 out of 10 but it does get to 10 out of 10 severity when he does move. He says he tries to avoid narcotic pain medications because it leads to severe constipation which he has been struggling with. He says he is on a rather extensive bowel regimen. The patient denies radicular pain or distal paresthesias. He denies incontinence. Review of Systems Reviewed and well outlined in the medical record Past Family Social History Past Medical History CHF Atrial fibrillation Hypothyroidism Hyperlipidemia Peripheral vascular disease TIA Anemia GERD Adhesive capsulitis of shoulder Prostate cancer (beads) History of C. diff Melanoma Past Surgical History Aortic-bifemoral bypass Bilateral carotid endarterectomy Tonsillectomy Partial right index finger resection Allergies: Coded Allergies: Macrodantin (Verified Allergy, Severe, CAUSED "C DIFF" INFECTION, 12/01/16) Penicillin (Verified Allergy, Mild, RASH, 12/01/16) Vancomycin (Verified Adverse Reaction, Intermediate, RASH, 12/01/16) Active Ordered Medications Current Medications Medications (Trade) Dose Ordered Sig/Bill Route Start Time Stop Time Status Last Admin (NS Flush) 2 ml BID FLUSH 12/20/16 21:00 12/20/16 21:27 (Tylenol) 650 mg Q4H PRN PO 12/20/16 12:00 (Colace) 100 mg Q12H PO 12/20/16 12:00 (Tylenol) 650 mg Q6H PRN PO 12/20/16 12:00 Naloxone HCl 0.4 mg 0.4 mg UNSCH PRN IV 12/20/16 12:00 (NS 1000 ml Inj) 1,000 ml @ 0 mls/hr Q0M PRN IV 12/20/16 11:58 12/20/16 12:53 Heparin Sodium (Porcine) 8000 units 8,000 units UNSCH PRN IVF 12/20/16 12:00 Sodium Chloride 1,000 ml @ 200 mls/hr Q5H PRN IV 12/20/16 11:58 12/20/16 12:54 (NS 1000 ml Inj) 1,000 ml @ 0 mls/hr Q0M PRN IV 12/20/16 11:58 (Mannitol Inj) 12.5 gm UNSCH PRN IV 12/20/16 12:00 (Albumin 25% Inj) 25 gm UNSCH PRN IV 12/20/16 12:00 (NS Flush) 5 ml UNSCH PRN IVF 12/20/16 12:00 12/20/16 12:53 (Heparin Inj) UNSCH PRN .XX 12/20/16 12:00 12/20/16 12:52 (Gentamicin (Dialysis) Inj) 20 mg UNSCH PRN IV 12/20/16 12:00 12/20/16 12:53 (Zofran Inj) 4 mg UNSCH PRN IV 12/20/16 12:00 (Tylenol) 650 mg UNSCH PRN PO 12/20/16 12:00 (Benadryl) 25 mg UNSCH PRN PO 12/20/16 12:00 (Nitrostat Sl) 0.4 mg UNSCH PRN SL 12/20/16 12:00 (Catapres) 0.1 mg UNSCH PRN PO 12/20/16 12:00 (Epogen Inj) 6,000 units UNSCH PRN IV 12/20/16 12:00 12/20/16 12:52 (Gelfoam 12 Mm/7 Mm Top) 1 foam UNSCH PRN TOP 12/20/16 12:00 (Proair Hfa Inh) 2 puff Q6H PRN INH 12/20/16 18:00 (Cordarone) 200 mg DAILY PO 12/21/16 09:00 (Eliquis) 5 mg DAILY PO 12/21/16 09:00 (Lipitor) 40 mg HS PO 12/20/16 21:00 12/20/16 21:23 (Pletal) 50 mg BID PO 12/20/16 21:00 12/20/16 21:24 (Lasix) 80 mg BID PO 12/20/16 21:00 12/20/16 21:24 (Synthroid) 125 mcg DAILY PO 12/21/16 09:00 (Claritin) 5 mg BID PO 12/20/16 21:00 12/20/16 21:24 (Cozaar) 25 mg DAILY PO 12/21/16 09:00 (Melatonin) 5 mg HS PO 12/20/16 21:00 12/20/16 21:24 (Miralax) 17 gm DAILY PO 12/20/16 18:00 12/20/16 18:29 (Requip) 0.25 mg HS PO 12/20/16 21:00 12/20/16 21:24 (Senokot) 17.2 mg HS PO 12/20/16 21:00 12/20/16 21:24 (Renvela) 1,600 mg TID PO 12/20/16 18:00 12/20/16 18:30 (Flomax) 0.4 mg HS PO 12/20/16 21:00 12/20/16 21:23 Patient Own Medication PT OWN MED:(Fluorouracil Topical (Efu... BID TOPICAL 12/20/16 21:00 Hold (Lactinex) 1 tab DAILY PO 12/21/16 09:00 (Lactulose Liq) 30 ml Q6HR PRN PO 12/20/16 18:00 Patient Own Medication PT OWN MED:(Mometasone-Formoterol... BID INH 12/20/16 21:00 Hold (Lactulose Liq) 30 ml DAILY PO 12/20/16 18:00 12/20/16 18:29 (Roxicodone) 5 mg Q4H PRN PO 12/20/16 18:00 12/20/16 18:31 (Pepcid) 20 mg DAILY PO 12/21/16 09:00 Reported Meds & Active Scripts Active Reported Melatonin 5 Mg Tab 3 Mg PO HS Ropinirole 0.25 Mg Tab 0.25 Mg PO HS Renvela (Sevelamer Carbonate) 800 Mg Tab 1,600 Mg PO TID Losartan (Losartan Potassium) 25 Mg Tab 25 Mg PO DAILY Zantac (Ranitidine HCl) 150 Mg Tab 150 Mg PO DAILY Efudex Topical (Fluorouracil Topical) 5 % Cream 1 Applic TOPICAL BID Dulera 120 Act Inh (Mometasone-Formoterol 120 Act Inh) 200-5 Mcg/Act Inh 2 Puff INH BID Culturelle (Lactobacillus Rhamnosus (GG)) 10 B Cell Cap 50 Mg PO DAILY Docusate Sodium 100 Mg Cap 100 Mg PO BID Cilostazol 50 Mg Tab 50 Mg PO BID Coreg (Carvedilol) 12.5 Mg Tab 12.5 Mg PO BID Lipitor (Atorvastatin Calcium) 40 Mg Tab 40 Mg PO HS Eliquis (Apixaban) 5 Mg Tab 5 Mg PO DAILY Amlodipine (Amlodipine Besylate) 10 Mg Tab 5 Mg PO DAILY Amiodarone (Amiodarone HCl) 200 Mg Tab 200 Mg PO DAILY Ventolin Hfa 18 GM Inh (Albuterol Sulfate) 90 Mcg/Act Aer 2 Puff INH Q6H PRN Enulose Liq (Lactulose (Encephalopathy) Liq) 10 Gm/15 Ml Soln 30 Ml PO Q6HR PRN Furosemide 80 Mg Tab 80 Mg PO BID Levothyroxine (Levothyroxine Sodium) 88 Mcg Tab 125 Mcg PO DAILY Claritin (Loratadine) 10 Mg Cap 5 Mg PO BID Miralax Powder (Polyethylene Glycol 3350 Powder) 17 Gm Powd 17 Gm PO DAILY Mix and dissolve one measuring cap-ful (17 grams) in water or juice. [place] Rx (B-Complex W/ C & Folic Acid) 1 Tab 1 Tab PO DAILY Sennosides 8.6 Mg Tab 17.2 Mg PO HS Tamsulosin (Tamsulosin HCl) 0.4 Mg Cap 0.4 Mg PO HS Tramadol (Tramadol HCl) 50 Mg Tab 50 Mg PO Q4H PRN Family History Mother: , lung cancer Father: in 70s from heart attack Social History The pt quit smoking a long time ago. He does not drink. Physical Exam Vital Signs Vital Signs Date Time Temp Pulse Resp B/P Pulse Ox O2 Delivery O2 Flow Rate FiO2 12/20/16 20:00 72 12/20/16 19:48 97.8 74 16 121/88 98 12/20/16 19:40 14 12/20/16 16:00 96.9 72 20 117/59 98 12/20/16 11:41 61 20 155/69 97 Nasal Cannula 2 12/20/16 09:55 100 Room Air 12/20/16 09:32 100 Room Air 12/20/16 09:22 60 17 146/66 100 Physical Exam His examination is somewhat limited secondary to his immobility. He does complain of low back pain when he tries to move. He has an unrestricted passive range of motion of both hips which does cause back pain. He has a negative straight leg raise. His motor and sensory examinations are intact. Laboratory Laboratory Tests Test 12/20/16 12/20/16 09:45 17:19 White Blood Count 6.1 Red Blood Count 3.11 Hemoglobin 10.4 Hematocrit 30.8 Mean Corpuscular Volume 99.0 Mean Corpuscular Hemoglobin 33.4 Mean Corpuscular Hemoglobin 33.8 Concent Red Cell Distribution Width 16.0 Platelet Count 240 Mean Platelet Volume 9.0 Neutrophils (%) (Auto) 77.4 Lymphocytes (%) (Auto) 8.2 Monocytes (%) (Auto) 12.8 Eosinophils (%) (Auto) 0.8 Basophils (%) (Auto) 0.8 Neutrophils # (Auto) 4.7 Lymphocytes # (Auto) 0.5 Monocytes # (Auto) 0.8 Eosinophils # (Auto) 0.1 Basophils # (Auto) 0.0 CBC Comment DIFF FINAL Differential Comment Prothrombin Time 12.3 Prothromb Time International 1.1 Ratio Sodium Level 136 Potassium Level 4.3 Chloride Level 99 Carbon Dioxide Level 26.0 Anion Gap 11 Blood Urea Nitrogen 27 Creatinine 3.82 Estimat Glomerular Filtration 15 Rate Random Glucose 118 Calcium Level 9.7 Total Bilirubin 0.6 Aspartate Amino Transf 18 (AST/SGOT) Alanine Aminotransferase 20 (ALT/SGPT) Alkaline Phosphatase 96 Total Creatine Kinase 37 Troponin I 0.02 0.03 Total Protein 6.0 Albumin 2.9 Result Diagram: 12/20/1645 12/20/1645 Imaging Last [address] 12/20/16940 Signed Impressions: Service Date/Time: Tuesday, December 20, 2016 10:08 - CONCLUSION: No acute intracranial disease. Nonspecific white matter changes. Kash Howard MD Chest X-Ray 12/20/16940 Signed Impressions: Service Date/Time: Tuesday, December 20, 2016 10:01 - CONCLUSION: 1. Cardiomegaly and increased pulmonary vascularity. No pulmonary edema. 2. Left-sided jugular vascular catheter. Kash Howard MD Lumbar Spine X-Ray 12/20/16 0000 Signed Impressions: Service Date/Time: Tuesday, December 20, 2016 19:26 - CONCLUSION: 1. Moderate compression fracture of L4 of unknown age. Osteopenia. Miles Wheeler MD Assessment & Plan Problem List: (1) Compression fracture of L4 lumbar vertebra (2) Hyperlipidemia (3) Hypertension (4) Atrial fibrillation, currently in sinus rhythm (5) CHF (congestive heart failure) (6) First degree AV block (7) Chronic kidney disease Assessment and Plan The findings were discussed. The patient understands I am not a web communications specialist. He does relate a two-week history of persistent pain which is likely related to a L4 compression fracture. The patient has been admitted for an unrelated problem. The options for treatment including continued bracing and conservative care versus possible invasive treatment was discussed. The patient may be a candidate for kyphoplasty. Dr. Wynn is not available at the present time and may not be for some time. Recommendations are given to consider neurosurgery or interventional radiology consultation for possible kyphoplasty. I have nothing further to offer him at the present time. Will follow as needed for further disposition. Ayo Myers MD Dec 20, 2016 22:30
[2016-12-21] VITALS (12 sets, daily range): BP systolic 79–131; BP diastolic 46–78; PULSE 63–74; RESP 16–55; TEMP 97.5–98.1; O2SAT 91–100
[2016-12-21] MEDS: DOCUSATE SODIUM 100 MG CAP PO SCH ×2 (01:30→12:28)
[2016-12-21 05:54] LABS: AUTOMATED NEUTROPHIL # 5.3 TH/MM3 (1.8-7.7); BASOPHIL % 0.7 % (0.0-2.0); EOSINOPHIL % 0.4 % (0.0-4.0); HEMATOCRIT 29.4 % (39.0-51.0); HEMO FLAGS DIFF FINAL; LYMPHOCYTE # 0.8 TH/MM3 (1.0-4.8); MEAN CELL VOLUME 99.4 FL (80.0-100.0); MEAN CORPUSCULAR HEMOGLOBIN 33.3 PG (27.0-34.0); MEAN CORPUSCULAR HGB CONC 33.5 % (32.0-36.0); NEUT % 71.9 % (16.0-70.0); PLATELET COUNT 233 TH/MM3 (150-450); RED BLOOD COUNT 2.95 MIL/MM3 (4.50-5.90); RED CELL DISTRIBUTION WIDTH 15.7 % (11.6-17.2); WHITE BLOOD COUNT 7.4 TH/MM3 (4.0-11.0)
[2016-12-21 06:20] LABS: BICARBONATE 28.3 MEQ/L (21.0-32.0); POTASSIUM 3.5 MEQ/L (3.5-5.1)
--- NOTE | 2016-12-21 07:39 | MB ---
cc: CELINE GOMEZ MD DATE OF CONSULTATION: 12/20/2016 REASON FOR CONSULTATION: End-stage renal disease on dialysis for management. HISTORY OF PRESENT ILLNESS This is an 86-year-old male with past medical history of ischemic heart disease, atrial fibrillation, congestive heart failure, end-stage renal disease on hemodialysis three times per week, hyperlipidemia, hypothyroidism, peripheral vascular disease, chronic anemia, presented to the hospital with complaints of generalized weakness and dizziness. I was called to see the patient for further management of dialysis. The patient has been on hemodialysis Thursday, and Thursday. He has been following with Dr. Hall and has not had hemodialysis. On the patient has left arm A-V fistula which was not working well and he underwent the surgery which was done on December [address] Rudolph and had right arm A-V fistula done. The patient denies any history of fall or loss of consciousness but again he feels dizzy and weak. Appetite is normal. Denies any chest pain. No shortness of breath. No abdominal pain. No history of diarrhea. PAST MEDICAL HISTORY 1. Ischemic heart disease 2. Congestive heart failure 3. Atrial fibrillation 4. Hyperlipidemia 5. Hypothyroidism 6. Peripheral vascular disease 7. Chronic anemia 8. End-stage renal disease on hemodialysis. PAST SURGICAL HISTORY 1. History of left and right arm AV fistula surgery 2. Bilateral carotid endarterectomy 3. Tonsillectomy 4. Partial right index finger resection. 5. Bypass surgery. REVIEW OF SYSTEMS Denies history of fever. No sore throat, no headache, no dizziness. Denies any nausea and vomiting. Denies any nausea or vomiting. He has weakness, feeling dizzy and weak, especially when he stands up. Denies any loss of consciousness. No abdominal pain. SOCIAL HISTORY: Past history of smoking. There is no history of heavy slcm8. FAMILY HISTORY: Noncontributory. ALLERGIES Macrodantin, penicillin, vancomycin. MEDICATIONS Currently he is on following medications: 1. Furosemide 80 milligrams b.i.d. 2. Tramadol 50 milligrams b.i.d. 3. Claritin 5 milligrams b.i.d. 4. Amiodarone 200 milligrams once a day. 5. Eliquis 5 milligrams once a day. 6. Synthroid 135 micrograms daily. 7. Cozaar 35 milligrams daily. 8. MiraLax 17 grams once a day. 9. Lactinex one tablet daily. 10. Pepcid 20 milligrams 11. Lipitor 40 milligrams q hs. 12. Melatonin 5 milligrams q hs. 13. Senokot 17.2 milligrams q hs. 14. Requip 0.25 milligrams q hs. 15. Flomax 0.4 milligrams q hs. 16. Colace 100 milligrams q12 hours. 17. Renvela 1.67 t.i.d. 18. Narcan as needed. PHYSICAL EXAMINATION: The patient is awake and alert. He was seen by me during dialysis. His blood pressure is 121/88, temperature 97.8, oxygen saturation 98%. HEENT: Pupils equal and reacting to light. Nonicteric sclerae. Conjunctivae pale. NECK: Supple. JVD not elevated. LUNGS: Bilateral decreased air entry with scattered wheezing. HEART: S1, S2, regular rhythm. ABDOMEN: Soft, no tenderness. Bowel sounds positive. EXTREMITIES: 1+ edema. Left arm has A-V fistula with good bruit. The right arm bruit is very weak. INVESTIGATIONS: WBC count 6.1, hemoglobin 10.4, platelet count is 840. Sodium 135, potassium 4.3, chloride 99, bicarb 26, BUN 37, creatinine 3.8, GFR is 119, AST/ALT normal. Troponin-I 0.02, total protein 6.0, albumin is 3.9. INR is 1.1. IMAGING STUDIES: The patient has CT scan of the brain done which shows no acute intracranial disease. Nonspecific white matter changes. Lumbar spine x-ray was done which shows moderate compression fracture of L4 with osteopenia. Chest x-ray was done which shows cardiomegaly and pulmonary vascular congestion. ASSESSMENT AND PLAN: 1. Dizziness and bradycardia. 2. Atrial fibrillation. 3. End-stage renal disease on dialysis. 4. Congestive heart failure. 5. L4 compression fracture 6. Anemia. The patient has bradycardia which is symptomatic and now the heart rate is better. The blood pressure is stable. The patient was seen during dialysis removing around 3 liters. So far he has been tolerating it when I saw him. He was on Carvedilol which is on hold. Cardiology has been consulted. The patient has mild anemia. He is currently getting dialysis with the PermCath. He has fistula on the left arm which was not working and he got a new surgery of the bruit. He is very weak. We will let him follow with the vascular surgeon. He is admitted mainly for observation. When stable, will discharge in 1-2 days. Thank you for the consultation. I will follow the patient along with you. MD GLADYS Marrufo/JIMBO /10:59 PM /6:53 AM
[2016-12-21] MEDS: CILOSTAZOL 50 MG TAB PO SCH ×2 (08:39→21:35)
[2016-12-21] MEDS: SEVELAMER CARBONATE 800 MG TAB PO SCH ×3 (08:39→17:42)
[2016-12-21] MEDS: FAMOTIDINE 20 MG TAB PO SCH (08:40)
[2016-12-21] MEDS: LEVOTHYROXINE SODIUM 125 MCG TAB PO SCH (08:40)
[2016-12-21] MEDS: APIXABAN 5 MG TABLET PO SCH (08:40)
[2016-12-21] MEDS: LACTOBACILLUS ACIDOPHILUS TAB PO SCH (08:40)
[2016-12-21] MEDS: AMIODARONE 200 MG TAB PO SCH (08:40)
[2016-12-21] MEDS: LORATADINE 10 MG TAB PO SCH ×2 (08:40→21:35)
[2016-12-21] MEDS: FUROSEMIDE 80 MG TAB PO SCH ×2 (08:42→21:36)
[2016-12-21] MEDS: SODIUM CHLORIDE 0.9% FLUSH 5 ML FLUSH FLUSH SCH ×2 (08:43→21:37)
[2016-12-21] MEDS: POLYETHYLENE GLYCOL 17 GM PKG PO SCH (08:44)
[2016-12-21] MEDS: LACTULOSE SYRUP 20 GM/30 ML CUP PO SCH (08:44)
[2016-12-21] MEDS ORDERED: LOSARTAN 25 MG TAB PO SCH (09:00)
[2016-12-21] MEDS ORDERED: RANITIDINE HCL 150 MG TAB PO SCH (09:00)
[2016-12-21] MEDS ORDERED: POLYETHYLENE GLYCOL 17 GM PKG PO PRN (09:15)
[2016-12-21] MEDS ORDERED: BISACODYL 10 MG SUPP RECTAL PRN (09:15)
--- NOTE | 2016-12-21 09:28 | HHI.PR ---
Subjective Remarks The patient said he successfully had a bowel movement. He was feeling better this morning and not in pain as long as he wasn't moving. His was at the bedside. The patient denied any dizziness. He had no acute complaints at this time. Discussed with nursing. Objective Vitals Vital Signs Date Time Temp Pulse Resp B/P Pulse Ox O2 Delivery O2 Flow Rate FiO2 12/21/16 07:41 98.0 66 22 108/57 100 12/21/16 04:49 97.8 74 16 131/78 97 12/20/16 20:00 72 12/20/16 19:48 97.8 74 16 121/88 98 12/20/16 19:40 14 12/20/16 16:00 96.9 72 20 117/59 98 12/20/16 11:41 61 20 155/69 97 Nasal Cannula 2 12/20/16 09:55 100 Room Air 12/20/16 09:32 100 Room Air I/O 12/20/16 12/20/16 12/20/16 12/21/16 12/21/16 12/21/16 07:00 15:00 23:00 07:00 15:00 23:00 Output Total 2500 ml Balance -2500 ml Output Hemodialysis 2500 ml Result Diagram: 12/21/16 0406 12/21/16 0406 Imaging Last Impressions Head CT 12/20/1641 Signed Impressions: Service Date/Time: Tuesday, December 20, 2016 10:08 - CONCLUSION: No acute intracranial disease. Nonspecific white matter changes. Kash Howard MD Chest X-Ray 12/20/16 0941 Signed Impressions: Service Date/Time: Tuesday, December 20, 2016 10:01 - CONCLUSION: 1. Cardiomegaly and increased pulmonary vascularity. No pulmonary edema. 2. Left-sided jugular vascular catheter. Kash Howard MD Lumbar Spine X-Ray 12/20/16 0000 Signed Impressions: Service Date/Time: Tuesday, December 20, 2016 19:26 - CONCLUSION: 1. Moderate compression fracture of L4 of unknown age. Osteopenia. Miles Wheeler MD Objective Remarks GENERAL: Awake, alert, elderly, no apparent distress. SKIN: Warm and dry. HEAD: Atraumatic. Normocephalic. EYES: Pupils equal and round. No scleral icterus. No injection or drainage. ENT: No nasal bleeding or discharge. Mucous membranes pink and moist. NECK: Trachea midline. No JVD. CARDIOVASCULAR: Regular rate and rhythm. Harsh grade 3 systolic murmur appreciated. RESPIRATORY: No accessory muscle use. Clear to auscultation. Breath sounds equal bilaterally. GASTROINTESTINAL: Abdomen soft, non-tender, nondistended. Hepatic and splenic margins not palpable. MUSCULOSKELETAL: In a body brace. No obvious deformities. No clubbing. No cyanosis. No edema. NEUROLOGICAL: Awake and alert. No obvious cranial nerve deficits. Motor grossly within normal limits. Normal speech. PSYCHIATRIC: Appropriate mood and affect; insight and judgment normal. Medications and IVs Current Medications Medications (Trade) Dose Ordered Sig/Bill Route Start Time Stop Time Status Last Admin (NS Flush) 2 ml BID FLUSH 12/20/16 21:00 12/21/16 08:43 (Tylenol) 650 mg Q4H PRN PO 12/20/16 12:00 (Colace) 100 mg Q12H PO 12/20/16 12:00 (Tylenol) 650 mg Q6H PRN PO 12/20/16 12:00 Naloxone HCl 0.4 mg 0.4 mg UNSCH PRN IV 12/20/16 12:00 (NS 1000 ml Inj) 1,000 ml @ 0 mls/hr Q0M PRN IV 12/20/16 11:58 12/20/16 12:53 Heparin Sodium (Porcine) 8000 units 8,000 units UNSCH PRN IVF 12/20/16 12:00 Sodium Chloride 1,000 ml @ 200 mls/hr Q5H PRN IV 12/20/16 11:58 12/20/16 12:54 (NS 1000 ml Inj) 1,000 ml @ 0 mls/hr Q0M PRN IV 12/20/16 11:58 (Mannitol Inj) 12.5 gm UNSCH PRN IV 12/20/16 12:00 (Albumin 25% Inj) 25 gm UNSCH PRN IV 12/20/16 12:00 (NS Flush) 5 ml UNSCH PRN IVF 12/20/16 12:00 12/20/16 12:53 (Heparin Inj) UNSCH PRN .XX 12/20/16 12:00 12/20/16 12:52 (Gentamicin (Dialysis) Inj) 20 mg UNSCH PRN IV 12/20/16 12:00 12/20/16 12:53 (Zofran Inj) 4 mg UNSCH PRN IV 12/20/16 12:00 (Tylenol) 650 mg UNSCH PRN PO 12/20/16 12:00 (Benadryl) 25 mg UNSCH PRN PO 12/20/16 12:00 (Nitrostat Sl) 0.4 mg UNSCH PRN SL 12/20/16 12:00 (Catapres) 0.1 mg UNSCH PRN PO 12/20/16 12:00 (Epogen Inj) 6,000 units UNSCH PRN IV 12/20/16 12:00 12/20/16 12:52 (Gelfoam 12 Mm/7 Mm Top) 1 foam UNSCH PRN TOP 12/20/16 12:00 (Proair Hfa Inh) 2 puff Q6H PRN INH 12/20/16 18:00 (Cordarone) 200 mg DAILY PO 12/21/16 09:00 12/21/16 08:40 (Eliquis) 5 mg DAILY PO 12/21/16 09:00 12/21/16 08:40 (Lipitor) 40 mg HS PO 12/20/16 21:00 12/20/16 21:23 (Pletal) 50 mg BID PO 12/20/16 21:00 12/21/16 08:39 (Lasix) 80 mg BID PO 12/20/16 21:00 12/21/16 08:42 (Synthroid) 125 mcg DAILY PO 12/21/16 09:00 12/21/16 08:40 (Claritin) 5 mg BID PO 12/20/16 21:00 12/21/16 08:40 (Cozaar) 25 mg DAILY PO 12/21/16 09:00 12/21/16 08:40 (Melatonin) 5 mg HS PO 12/20/16 21:00 12/20/16 21:24 (Requip) 0.25 mg HS PO 12/20/16 21:00 12/20/16 21:24 (Senokot) 17.2 mg HS PO 12/20/16 21:00 12/20/16 21:24 (Renvela) 1,600 mg TID PO 12/20/16 18:00 12/21/16 08:39 (Flomax) 0.4 mg HS PO 12/20/16 21:00 12/20/16 21:23 Patient Own Medication PT OWN MED:(Fluorouracil Topical (Efu... BID TOPICAL 12/20/16 21:00 Hold (Lactinex) 1 tab DAILY PO 12/21/16 09:00 12/21/16 08:40 (Lactulose Liq) 30 ml Q6HR PRN PO 12/20/16 18:00 Patient Own Medication PT OWN MED:(Mometasone-Formoterol... BID INH 12/20/16 21:00 Hold (Roxicodone) 5 mg Q4H PRN PO 12/20/16 18:00 12/20/16 18:31 (Pepcid) 20 mg DAILY PO 12/21/16 09:00 12/21/16 08:40 (Miralax) 17 gm DAILY PRN PO 12/21/16 09:15 (Dulcolax Supp) 10 mg DAILY PRN RECTAL 12/21/16 09:15 A/P Problem List: (1) Symptomatic bradycardia ICD Code: R00.1 Status: Acute (2) First degree AV block ICD Code: I44.0 Status: Acute (3) CHF (congestive heart failure) ICD Code: I50.9 Status: Acute (4) Acute on chronic kidney failure ICD Code: N17.9 Status: Acute (5) Hypothyroidism ICD Code: E03.9 Status: Chronic (6) Hypertension ICD Code: I10 Status: Chronic Assessment and Plan Dizziness/ bradycardia The pt's heart rate was in the 40s during his episode of dizziness. He is on amiodarone and Coreg. EKG with 1st degree AVB and conduction delay. EKG 12/21 with NSR. - hold Coreg and continue amiodarone. Doing well. - telemetry. - cardiology consult if recurs. - trend trops. Atrial fibrillation On amiodarone and Coreg as an outpt, along with anticoagulation. - hold Coreg as above. - telemetry. - continue anticoagulation. L4 fracture The pt was supposed to follow up with Dr. Wynn. Orthopedic surgery consulted and recommended NS or IR consult for kyphoplasty if needed. - pain control with a bowel regimen. - PT/ OT. - the pt said Dr. Wynn's office will be contacting them in the morning. Will decide on NS vs IR consult at that time. ESRD On dialysis. Nephrology consult appreciated. - continue dialysis per nephrology. - continue diuresis. - follow BMP and avoid nephrotoxic agents. Constipation The patient reports severe constipation. - Extensive bowel regimen ordered. Resolved. CHF Pt appears euvolemic. CXR with increased vascularity. - continue volume management with dialysis. - continue cardiac regimen. PPx: Eliquis Discharge Planning Awaiting clinical improvement. Avtar Beltran DO Dec 21, 2016 09:28
--- NOTE | 2016-12-21 14:21 | EKG ---
Date Performed: 12/21/2016 Time Performed: 05:27:47 PTAGE: 86 years EKG: Sinus rhythm NONSPECIFIC ST & T-WAVE ABNORMALITY PROLONGED QT INTERVAL Compared to previous tracing, sinus rate h as increased ABNORMAL ECG PREVIOUS TRACING : 12/20/2016 09.33 DOCTOR: Harley Mobley Interpretating Date/Time 12/21/2016 14:19:21
--- NOTE | 2016-12-21 18:57 | HHI.NPPN ---
Subjective General Problems: Anemia, Hypertension Renal Failure: End Stage Renal Disease History of Present Illness 86-year-old male with past medical history of ischemic heart disease, atrial fibrillation, congestive heart failure, end-stage renal disease on hemodialysis three times per week, hyperlipidemia, hypothyroidism, peripheral vascular disease, chronic anemia, presented to the hospital with complaints of generalized weakness and dizziness. I was called to see the patient for further management of dialysis. The patient has been on hemodialysis Thursday, and Thursday. Additional Remarks Patient is alert, no headache, had dizziness on standing, no SOB. Review of Systems General Constitutional: Fatigue Respiratory Lungs: SOB Cardiovascular Cardiac: SCRUGGS Objective Data Data 12/20/16 12/21/16 19:00 07:00 Output Total 2500 ml Balance -2500 ml Output Hemodialysis 2500 ml Vital Signs Date Time Temp Pulse Resp B/P Pulse Ox O2 Delivery O2 Flow Rate FiO2 12/21/16 17:15 81/46 12/21/16 15:39 98.1 68 55 96 12/21/16 14:20 69 20 79/46 12/21/16 11:10 97.5 70 22 83/48 100 12/21/16 09:32 100 Nasal Cannula 2.00 12/21/16 08:11 63 12/21/16 07:41 98.0 66 22 108/57 100 12/21/16 04:49 97.8 74 16 131/78 97 12/20/16 20:00 72 12/20/16 19:48 97.8 74 16 121/88 98 12/20/16 19:40 14 -: 12/21/16 0406 12/21/16 0406 Physical Exam General Appearance: No Acute Distress, Comfortable Eyes Eye Exam: Pupils Equal Throat Throat Exam: Oral Mucosa [place] & Moist Neck Neck Exam: Neck Supple Pulmonary Resp Exam: Rhonchi, Decreased Bases, Diminished Breath Sounds Cardiology CV Exam: Regular, Normal Sinus Rhythm Gastrointestinal/Abdomen GI Exam: Soft, Non-Tender, Bowel Sounds Present Extremeties Extremities Exam: Trace Edema Neurologic Neuro Exam: Alert, Awake, Oriented Psychiatric Psych Exam: Appropriate Responses Assessment/Plan Assessment Summary: Hypertension, End Stage Renal Disease Problem List: (1) Compression fracture of L4 lumbar vertebra (2) Hypertension (3) CHF (congestive heart failure) (4) Symptomatic bradycardia (5) Dizziness (6) ESRD (end stage renal disease) (7) Dependent on hemodialysis Plan Patient had HD done yesterday. Tolerated well. BP is on lower side. I will add Midodrine. Has compression fracture, to see Ortho. Continue HD TTS. Dr. Hall will follow in AM. Nic Perez MD Dec 21, 2016 18:57
[2016-12-21] MEDS: ATORVASTATIN 40 MG TAB PO SCH (21:35)
[2016-12-21] MEDS: TAMSULOSIN HCL 0.4 MG CAP PO SCH (21:35)
[2016-12-21] MEDS: SENNOSIDES 8.6 MG TAB PO SCH (21:35)
[2016-12-21] MEDS: MELATONIN 5 MG TAB PO SCH (21:37)
[2016-12-22] MEDS: MIDODRINE 5 MG TAB PO SCH ×3 (06:36→18:19)
[2016-12-22 06:39] LABS: BICARBONATE 29.4 MEQ/L (21.0-32.0); MAGNESIUM 2.5 MG/DL (1.5-2.5); POTASSIUM 3.7 MEQ/L (3.5-5.1)
[2016-12-22 08:00] VITALS: PULSE 67
[2016-12-22 08:06] VITALS: BP 132/60; PULSE 70; RESP 18; TEMP 96.5; O2SAT 98
[2016-12-22] MEDS: APIXABAN 5 MG TABLET PO SCH (08:48)
[2016-12-22] MEDS: LEVOTHYROXINE SODIUM 125 MCG TAB PO SCH (08:48)
[2016-12-22] MEDS: LACTOBACILLUS ACIDOPHILUS TAB PO SCH (08:48)
[2016-12-22] MEDS: CILOSTAZOL 50 MG TAB PO SCH ×2 (08:49→21:11)
[2016-12-22] MEDS: SODIUM CHLORIDE 0.9% FLUSH 5 ML FLUSH FLUSH SCH ×2 (08:49→21:11)
[2016-12-22] MEDS: LORATADINE 10 MG TAB PO SCH ×2 (08:49→21:10)
[2016-12-22] MEDS: FUROSEMIDE 80 MG TAB PO SCH ×2 (08:49→21:11)
[2016-12-22] MEDS: SEVELAMER CARBONATE 800 MG TAB PO SCH ×3 (08:49→18:19)
[2016-12-22] MEDS: FAMOTIDINE 20 MG TAB PO SCH (08:49)
[2016-12-22] MEDS: AMIODARONE 200 MG TAB PO SCH (08:49)
--- NOTE | 2016-12-22 10:49 | HHI.NPPN ---
Subjective General Problems: Anemia, Hypotension Renal Failure: Chronic, End Stage Renal Disease Interval History He is doing well today. at bedside. Had dialysis over the weekend. ( Ilana Tran) Review of Systems General Constitutional: Fatigue (Ilana Tran) Respiratory Lungs: SOB (Ilana Tran) Cardiovascular Cardiac: SCRUGGS (Ilana Tran) Musculoskeletal MS: Pain/Stiffness MS Remarks back pain (Ilana Tran) Objective Data Data 12/21/16 12/22/16 19:00 07:00 Intake Total 200 ml 530 ml Balance 200 ml 530 ml Intake Oral 200 ml 530 ml # Voids 1 # Bowel Movements 1 Vital Signs Date Time Temp Pulse Resp B/P Pulse Ox O2 Delivery O2 Flow Rate FiO2 12/22/16 08:06 96.5 70 18 132/60 98 12/21/16 23:20 97.8 64 16 101/51 97 12/21/16 21:49 97.9 66 21 108/52 91 12/21/16 21:00 63 12/21/16 20:38 95 Nasal Cannula 2.00 12/21/16 17:15 81/46 12/21/16 15:39 98.1 68 55 96 12/21/16 14:20 69 20 79/46 12/21/16 11:10 97.5 70 22 83/48 100 (Ilana Tran) -: 12/21/16 0406 12/22/16 0502 Imaging Last [address] 12/20/16 0941 Signed Impressions: Service Date/Time: Tuesday, December 20, 2016 10:08 - CONCLUSION: No acute intracranial disease. Nonspecific white matter changes. Kash Howard MD Chest X-Ray 12/20/16 0941 Signed Impressions: Service Date/Time: Tuesday, December 20, 2016 10:01 - CONCLUSION: 1. Cardiomegaly and increased pulmonary vascularity. No pulmonary edema. 2. Left-sided jugular vascular catheter. Kash Howard MD Lumbar Spine X-Ray 12/20/16 0000 Signed Impressions: Service Date/Time: Tuesday, December 20, 2016 19:26 - CONCLUSION: 1. Moderate compression fracture of L4 of unknown age. Osteopenia. Miles Wheeler MD (Ilana Tran [employer] PROFESS[employer]) Physical Exam General Appearance: Well Developed, Well Nourished, No Acute Distress, Comfortable ( Ilana Tran B. [employer]ORY PROFESSOR) Eyes Eye Exam: Pupils Equal (Ilana Tran B. [employer]ISTORY PROFESSOR) Throat Throat Exam: Oral Mucosa [place] & Moist (Ilana Tran B. [employer] HISTORY PROFESSOR) Neck Neck Exam: Neck Supple, Trachea Midline (Ilana Tran B. [employer] HISTORY PROFESSOR) Pulmonary Resp Exam: Clear Bilaterally, Breath Sounds Equal, No Distress (Ilana Tran B. [employer] H[employer]ORY PROFESSOR) Cardiology CV Exam: Good Perfusion, Irregular, Arrhythmia CV Remarks 3/6 Systolic ejection murmur, heard best right sternal border (Ilana Tran B. [employer] HISTORY PROFESSOR) Gastrointestinal/Abdomen GI Exam: Soft, Non-Tender, Bowel Sounds Present (Ilana Tran B. [employer] HISTORY PROFESSOR) Musculoskeletal MS Exam: Joints Intact, Normal Tone (Ilana Tran B. [employer] HISTORY PROFESSOR) Integumentary Skin Exam: Warm, Dry, Intact (Ilana Tran B. [employer] HISTORY PROFESSOR) Extremeties Extremities Exam: No Edema, Pedal Pulses Palpable (Ilana Tran B. [employer]ISTORY PROFESSOR) Neurologic Neuro Exam: Alert, Awake, Oriented, Speech Clear, Moving All Extremities ( Ilana Tran B. [employer]ISTORY PROFESSOR) Psychiatric Psych Exam: Appropriate Responses (Ilana Tran [employer] H[employer] PROFESSOR) Assessment/Plan Assessment Summary: Anemia of CKD, Hypertension, End Stage Renal Disease Problem List: (1) ESRD (end stage renal disease) Plan: maintain T-Th-Thu dialysis schedule, he is due tomorrow no current dialysis concerns no IVF required, on high protein diet renal panel in am he does have left AVF that he had ligated but apparently it was used very recently has new AVF right that is occluded, may need vascular evaluation during this admission. (2) Compression fracture of L4 lumbar vertebra Plan: ortho to evaluate he has LSO brace in place may require kyphoplasty in IR this admission (3) Hypertension Plan: he has been hypotensive, now on TID midodrine it is effective, monitor blood pressures (4) CHF (congestive heart failure) Plan: fluid volume status acceptable adjust UF as needed avoid IVF (5) Symptomatic bradycardia Plan: due to coreg, which was stopped heart rate has improved (6) Dizziness Plan: related to bradycardia, improved (7) Anemia Plan: epogen with dialysis (8) Metabolic bone disease Plan: check phosphorus level in am, continue Renvela with meals (Ilana Tran) Plan patient was seen and examined. Agree with above assessment and plan. Patient would like to have kyphoplasty performed by IR while he is in the hospital. I will consult IR for this reason. May need vascular surgery evaluation regarding AVF issues. Patient has newly created AVF in the right arm that appears to be patent, but obviously not mature. (Rashid Hall MD) Ilana Tran Dec 22, 2016 10:49 Rashid Hall MD Dec 22, 2016 11:51
[2016-12-22 12:13] VITALS: BP 129/30; PULSE 63; RESP 18; O2SAT 95
--- NOTE | 2016-12-22 13:42 | HHI.PR ---
Subjective Remarks The patient said that he heard from his orthopedic's office and that he would like to pursue kyphoplasty with interventional radiology. He said that he has been having bowel movements. He has been out of bed and that has caused him to have increased pain in his back. No other acute complaints. Objective Vitals Vital Signs Date Time Temp Pulse Resp B/P Pulse Ox O2 Delivery O2 Flow Rate FiO2 12/22/16 12:13 63 18 129/30 95 12/22/16 08:06 96.5 70 18 132/60 98 12/21/16 23:20 97.8 64 16 101/51 97 12/21/16 21:49 97.9 66 21 108/52 91 12/21/16 21:00 63 12/21/16 20:38 95 Nasal Cannula 2.00 12/21/16 17:15 81/46 12/21/16 15:39 98.1 68 55 96 12/21/16 14:20 69 20 79/46 I/O 12/21/16 12/21/16 12/21/16 12/22/16 12/22/16 12/22/16 07:00 15:00 23:00 07:00 15:00 23:00 Intake Total 200 ml 480 ml 50 ml Balance 200 ml 480 ml 50 ml Intake Oral 200 ml 480 ml 50 ml # Voids 1 # Bowel Movements 1 Result Diagram: 12/21/16 0406 12/22/16 0502 Imaging Last Impressions Head CT 12/20/16940 Signed Impressions: Service Date/Time: Tuesday, December 20, 2016 10:08 - CONCLUSION: No acute intracranial disease. Nonspecific white matter changes. Kash Howard MD Chest X-Ray 12/20/1641 Signed Impressions: Service Date/Time: Tuesday, December 20, 2016 10:01 - CONCLUSION: 1. Cardiomegaly and increased pulmonary vascularity. No pulmonary edema. 2. Left-sided jugular vascular catheter. Kash Howard MD Lumbar Spine X-Ray 12/20/16 0000 Signed Impressions: Service Date/Time: Tuesday, December 20, 2016 19:26 - CONCLUSION: 1. Moderate compression fracture of L4 of unknown age. Osteopenia. Miles Wheeler MD Objective Remarks GENERAL: Awake, alert, elderly, no apparent distress. SKIN: Warm and dry. HEAD: Atraumatic. Normocephalic. EYES: Pupils equal and round. No scleral icterus. No injection or drainage. ENT: No nasal bleeding or discharge. Mucous membranes pink and moist. NECK: Trachea midline. No JVD. CARDIOVASCULAR: Regular rate and rhythm. Harsh grade 3 systolic murmur appreciated. RESPIRATORY: No accessory muscle use. Clear to auscultation. Breath sounds equal bilaterally. GASTROINTESTINAL: Abdomen soft, non-tender, nondistended. Hepatic and splenic margins not palpable. MUSCULOSKELETAL: In a thoracic brace. No obvious deformities. No clubbing. No cyanosis. No edema. NEUROLOGICAL: Awake and alert. No obvious cranial nerve deficits. Motor grossly within normal limits. Normal speech. PSYCHIATRIC: Appropriate mood and affect; insight and judgment normal. Medications and IVs Current Medications Medications (Trade) Dose Ordered Sig/Bill Route Start Time Stop Time Status Last Admin (NS Flush) 2 ml BID FLUSH 12/20/16 21:00 12/22/16 08:49 (Tylenol) 650 mg Q4H PRN PO 12/20/16 12:00 (Colace) 100 mg Q12H PO 12/20/16 12:00 12/21/16 12:28 (Tylenol) 650 mg Q6H PRN PO 12/20/16 12:00 Naloxone HCl 0.4 mg 0.4 mg UNSCH PRN IV 12/20/16 12:00 (NS 1000 ml Inj) 1,000 ml @ 0 mls/hr Q0M PRN IV 12/20/16 11:58 12/20/16 12:53 Heparin Sodium (Porcine) 8000 units 8,000 units UNSCH PRN IVF 12/20/16 12:00 Sodium Chloride 1,000 ml @ 200 mls/hr Q5H PRN IV 12/20/16 11:58 12/20/16 12:54 (NS 1000 ml Inj) 1,000 ml @ 0 mls/hr Q0M PRN IV 12/20/16 11:58 (Mannitol Inj) 12.5 gm UNSCH PRN IV 12/20/16 12:00 (Albumin 25% Inj) 25 gm UNSCH PRN IV 12/20/16 12:00 (NS Flush) 5 ml UNSCH PRN IVF 12/20/16 12:00 12/20/16 12:53 (Heparin Inj) UNSCH PRN .XX 12/20/16 12:00 12/20/16 12:52 (Gentamicin (Dialysis) Inj) 20 mg UNSCH PRN IV 12/20/16 12:00 12/20/16 12:53 (Zofran Inj) 4 mg UNSCH PRN IV 12/20/16 12:00 (Tylenol) 650 mg UNSCH PRN PO 12/20/16 12:00 (Benadryl) 25 mg UNSCH PRN PO 12/20/16 12:00 (Nitrostat Sl) 0.4 mg UNSCH PRN SL 12/20/16 12:00 (Catapres) 0.1 mg UNSCH PRN PO 12/20/16 12:00 (Epogen Inj) 6,000 units UNSCH PRN IV 12/20/16 12:00 12/20/16 12:52 (Gelfoam 12 Mm/7 Mm Top) 1 foam UNSCH PRN TOP 12/20/16 12:00 (Proair Hfa Inh) 2 puff Q6H PRN INH 12/20/16 18:00 (Cordarone) 200 mg DAILY PO 12/21/16 09:00 12/22/16 08:49 (Eliquis) 5 mg DAILY PO 12/21/16 09:00 12/22/16 08:48 (Lipitor) 40 mg HS PO 12/20/16 21:00 12/21/16 21:35 (Pletal) 50 mg BID PO 12/20/16 21:00 12/22/16 08:49 (Lasix) 80 mg BID PO 12/20/16 21:00 12/22/16 08:49 (Synthroid) 125 mcg DAILY PO 12/21/16 09:00 12/22/16 08:48 (Claritin) 5 mg BID PO 12/20/16 21:00 12/22/16 08:49 (Cozaar) 25 mg DAILY PO 12/21/16 09:00 Hold 12/21/16 08:40 (Melatonin) 5 mg HS PO 12/20/16 21:00 12/21/16 21:37 (Requip) 0.25 mg HS PO 12/20/16 21:00 12/21/16 21:36 (Senokot) 17.2 mg HS PO 12/20/16 21:00 12/21/16 21:35 (Renvela) 1,600 mg TID PO 12/20/16 18:00 12/22/16 08:49 (Flomax) 0.4 mg HS PO 12/20/16 21:00 12/21/16 21:35 Patient Own Medication PT OWN MED:(Fluorouracil Topical (Efu... BID TOPICAL 12/20/16 21:00 Hold (Lactinex) 1 tab DAILY PO 12/21/16 09:00 12/22/16 08:48 (Lactulose Liq) 30 ml Q6HR PRN PO 12/20/16 18:00 Patient Own Medication PT OWN MED:(Mometasone-Formoterol... BID INH 12/20/16 21:00 Hold (Roxicodone) 5 mg Q4H PRN PO 12/20/16 18:00 12/22/16 08:49 (Pepcid) 20 mg DAILY PO 12/21/16 09:00 12/22/16 08:49 (Miralax) 17 gm DAILY PRN PO 12/21/16 09:15 (Dulcolax Supp) 10 mg DAILY PRN RECTAL 12/21/16 09:15 (Proamatine) 5 mg TID@,,17 PO 12/22/16 07:00 12/22/16 06:36 A/P Problem List: (1) Symptomatic bradycardia ICD Code: R00.1 Status: Acute (2) First degree AV block ICD Code: I44.0 Status: Acute (3) CHF (congestive heart failure) ICD Code: I50.9 Status: Acute (4) Acute on chronic kidney failure ICD Code: N17.9 Status: Acute (5) Hypothyroidism ICD Code: E03.9 Status: Chronic (6) Hypertension ICD Code: I10 Status: Chronic Assessment and Plan Dizziness/ bradycardia/ hypotension The pt's heart rate was in the 40s during his episode of dizziness. He is on amiodarone and Coreg. EKG with 1st degree AVB and conduction delay. EKG 12/21 with NSR. Trops flat. - hold Coreg and continue amiodarone. Doing well 12/22. - telemetry. - cardiology consult if recurs. - midodrine added. Atrial fibrillation On amiodarone and Coreg as an outpt, along with anticoagulation. - hold Coreg as above. - telemetry. - continue anticoagulation. L4 fracture The pt was supposed to follow up with Dr. Wynn. Orthopedic surgery consulted and recommended NS or IR consult for kyphoplasty if needed. - pain control with a bowel regimen. - PT/ OT. - IR consult placed for kyphoplasty. ESRD On dialysis. Nephrology consult appreciated. - continue dialysis per nephrology. - continue diuresis. - follow BMP and avoid nephrotoxic agents. Constipation The patient reports severe constipation. - Extensive bowel regimen ordered. Resolved. CHF Pt appears euvolemic. CXR with increased vascularity. - continue volume management with dialysis. - continue cardiac regimen. PPx: Eliquis Discharge Planning Awaiting clinical improvement. Avtar Beltran DO Dec 22, 2016 13:42
[2016-12-22] MEDS: DOCUSATE SODIUM 100 MG CAP PO SCH ×2 (15:00)
[2016-12-22 17:00] VITALS: BP 123/60; PULSE 66; RESP 18; O2SAT 95
[2016-12-22 20:19] VITALS: BP 113/59; PULSE 68; RESP 20; TEMP 97.8; O2SAT 97
[2016-12-22] MEDS: TAMSULOSIN HCL 0.4 MG CAP PO SCH (21:09)
[2016-12-22] MEDS: MELATONIN 5 MG TAB PO SCH (21:09)
[2016-12-22] MEDS: SENNOSIDES 8.6 MG TAB PO SCH (21:11)
[2016-12-22] MEDS: ATORVASTATIN 40 MG TAB PO SCH (21:11)
[2016-12-22 22:00] VITALS: O2SAT 96
[2016-12-23] VITALS (7 sets, daily range): BP systolic 97–122; BP diastolic 51–83; PULSE 65–84; RESP 17–20; TEMP 97.2–98.8; O2SAT 95–98
[2016-12-23] MEDS: DOCUSATE SODIUM 100 MG CAP PO SCH ×2 (00:30→11:22)
[2016-12-23] MEDS: MIDODRINE 5 MG TAB PO SCH ×3 (06:31→17:32)
[2016-12-23 06:35] LABS: BICARBONATE 28.7 MEQ/L (21.0-32.0); MAGNESIUM 2.8 MG/DL (1.5-2.5); POTASSIUM 3.9 MEQ/L (3.5-5.1)
[2016-12-23] MEDS: EPOETIN ALFA 10,000 UNITS/ML VIAL IV PRN (08:23)
[2016-12-23] MEDS: SODIUM CHLOR 0.9% 1000 ML INJ 1,000 ML IV PRN ×2 (08:24)
[2016-12-23] MEDS: GENTAMICIN SULFATE (DIALYSIS USE ONLY) 20 MG/2 ML VIAL IV PRN (08:25)
[2016-12-23] MEDS: SODIUM CHLORIDE 0.9% FLUSH 5 ML FLUSH IVF PRN (08:25)
[2016-12-23] MEDS: HEPARIN SODIUM - IV 10,000 UNITS/10 ML VIAL PRN (08:25)
--- NOTE | 2016-12-23 08:45 | HHI.NPPN ---
Subjective General Problems: Anemia, Hypotension Renal Failure: Chronic, End Stage Renal Disease Interval History No further episodes of bradycardia. Having back pain especially when ambulating. Seen during dialysis this morning. (Ilana Tran) Review of Systems General Constitutional: Fatigue (Ilana Tran) Respiratory Lungs: SOB (Ilana Tran) Cardiovascular Cardiac: SCRUGGS (Ilana Tran) Musculoskeletal MS: Pain/Stiffness MS Remarks back pain (Ilana Tran) Objective Data Data Vital Signs Date Time Temp Pulse Resp B/P Pulse Ox O2 Delivery O2 Flow Rate FiO2 12/23/16 08:00 97.3 65 18 110/56 98 12/23/16 05:12 82 18 113/71 97 12/23/16 03:21 67 12/23/16 01:22 98.1 84 20 115/83 97 12/22/16 22:00 96 CPAP 2.00 12/22/16 20:19 97.8 68 20 113/59 97 12/22/16 17:00 66 18 123/60 95 12/22/16 12:13 63 18 129/30 95 (Ilana Tran) -: 12/21/16 0406 12/23/16 0522 Imaging Last [address] 12/20/16 0941 Signed Impressions: Service Date/Time: Tuesday, December 20, 2016 10:08 - CONCLUSION: No acute intracranial disease. Nonspecific white matter changes. Kash Howard MD Chest X-Ray 12/20/16940 Signed Impressions: Service Date/Time: Tuesday, December 20, 2016 10:01 - CONCLUSION: 1. Cardiomegaly and increased pulmonary vascularity. No pulmonary edema. 2. Left-sided jugular vascular catheter. Kash Howard MD Tubes & Lines: Perma-Cath (Ilana Tran) Physical Exam General Appearance: Well Developed, Well Nourished, No Acute Distress, Comfortable ( Ilana Tran) Eyes Eye Exam: Pupils Equal (Ilana Tran) Throat Throat Exam: Oral Mucosa [place] & Moist (Ilana Tran) Neck Neck Exam: Neck Supple, Trachea Midline (Ilana Tran) Pulmonary Resp Exam: Clear Bilaterally, Breath Sounds Equal, No Distress (Ilana Tran) Cardiology CV Exam: Good Perfusion, Irregular, Arrhythmia CV Remarks 3/6 Systolic ejection murmur, heard best right sternal border (Ilana Tran) Gastrointestinal/Abdomen GI Exam: Soft, Non-Tender, Bowel Sounds Present (Ilana Tran) Musculoskeletal MS Exam: Joints Intact, Normal Tone (Ilana Tran) Integumentary Skin Exam: Warm, Dry, Intact (Ilana Tran) Extremeties Extremities Exam: No Edema, Pedal Pulses Palpable (Ilana Tran) Neurologic Neuro Exam: Alert, Awake, Oriented, Speech Clear, Moving All Extremities ( Ilana Tran) Psychiatric Psych Exam: Appropriate Responses (Ilana Tran) Assessment/Plan Discussed Condition With: Patient Assessment Summary: Anemia of CKD, Hypertension, End Stage Renal Disease Problem List: (1) ESRD (end stage renal disease) Plan: seen during dialysis on a 3K, 400 BFR, goal 2L maintain T-Th-Sat dialysis schedule no current dialysis concerns no IVF required, on high protein diet renal panel in am he does have left AVF that he had ligated but apparently it was used very recently has new AVF right that is occluded, may need vascular evaluation during this admission. he has functioning permcath to use for dialysis (2) Compression fracture of L4 lumbar vertebra Plan: IR consulted for kyphoplasty he has LSO brace to use, pen pain medications fall precautions (3) Hypertension Plan: BP is acceptable on TID midodrine monitor blood pressures (4) CHF (congestive heart failure) Plan: fluid volume status acceptable adjust UF as needed avoid IVF (5) Symptomatic bradycardia Plan: thought to be due to coreg and amiodarone use, they both have been stopped heart rate has improved , monitor (6) Dizziness Plan: related to bradycardia, improved (7) Anemia Plan: epogen with dialysis check iron profile (8) Metabolic bone disease Plan: phosphorus level is acceptable, continue Renvela with meals evaluate intermittently (Ilana Tran) Plan patient was seen and examined. Seen during dialysis. UF goal is 2 liters. Tolerating it. Continues to have back pain, IR consulted for kyphoplasty. Radiologist (Dr. Asher) wanted Apixaban and Pletal stopped for 5 days before the procedure. I have suspended them. Hopefully kyphoplasty can be performed later this week. (Rashid Hall MD) Ilana Tran Dec 23, 2016 08:45 Rashid Hall MD Dec 23, 2016 10:24
[2016-12-23] MEDS: ALBUMIN HUMAN 25% 25 GM/100 ML BAGP IV PRN ×2 (09:41→09:42)
[2016-12-23] MEDS: LEVOTHYROXINE SODIUM 125 MCG TAB PO SCH (11:21)
[2016-12-23] MEDS: LACTOBACILLUS ACIDOPHILUS TAB PO SCH (11:22)
[2016-12-23] MEDS: SEVELAMER CARBONATE 800 MG TAB PO SCH ×3 (11:22→17:32)
[2016-12-23] MEDS: LORATADINE 10 MG TAB PO SCH ×2 (11:22→21:33)
[2016-12-23] MEDS: FAMOTIDINE 20 MG TAB PO SCH (11:22)
[2016-12-23] MEDS: SODIUM CHLORIDE 0.9% FLUSH 5 ML FLUSH FLUSH SCH ×2 (11:23→21:34)
[2016-12-23] MEDS: AMIODARONE 200 MG TAB PO SCH (11:23)
[2016-12-23] MEDS: FUROSEMIDE 80 MG TAB PO SCH ×2 (11:23→21:33)
--- NOTE | 2016-12-23 13:43 | HHI.PR ---
Subjective Remarks Follow-up for back pain. Patient continues to complain of lower back pain, no radiation. He is to be off Eliquis prior to kyphoplasty, discussed with RN, kyphoplasty later today or tomorrow. He states he's been able to stand with help. He states he lives at home with his who is a good caregiver. Objective Vitals Vital Signs Date Time Temp Pulse Resp B/P Pulse Ox O2 Delivery O2 Flow Rate FiO2 12/23/16 12:00 97.2 74 17 122/58 96 12/23/16 08:00 97.3 65 18 110/56 98 12/23/16 05:12 82 18 113/71 97 12/23/16 03:21 67 12/23/16 01:22 98.1 84 20 115/83 97 12/22/16 22:00 96 CPAP 2.00 12/22/16 20:19 97.8 68 20 113/59 97 12/22/16 17:00 66 18 123/60 95 I/O 12/22/16 12/22/16 12/22/16 12/23/16 12/23/16 12/23/16 07:00 15:00 23:00 07:00 15:00 23:00 Intake Total 50 ml Output Total 2000 ml Balance 50 ml -2000 ml Intake Oral 50 ml Output Hemodialysis 2000 ml Result Diagram: 12/21/16 0406 12/23/16 0522 Imaging Last Impressions Head CT 12/20/1641 Signed Impressions: Service Date/Time: Tuesday, December 20, 2016 10:08 - CONCLUSION: No acute intracranial disease. Nonspecific white matter changes. Kash Howard MD Chest X-Ray 12/20/1641 Signed Impressions: Service Date/Time: Tuesday, December 20, 2016 10:01 - CONCLUSION: 1. Cardiomegaly and increased pulmonary vascularity. No pulmonary edema. 2. Left-sided jugular vascular catheter. Kash Howard MD Lumbar Spine X-Ray 12/20/16 0000 Signed Impressions: Service Date/Time: Tuesday, December 20, 2016 19:26 - CONCLUSION: 1. Moderate compression fracture of L4 of unknown age. Osteopenia. Miles Wheeler MD Objective Remarks GENERAL: Well-developed well-nourished. In no acute distress. SKIN: Warm and dry. No lesions noted. HEENT: Normocephalic. Pupils equal and round. Mucous membranes pink and moist. CARDIOVASCULAR: Regular rate and rhythm. Systolic murmur appreciated. RESPIRATORY: No accessory muscle use. Clear to auscultation. Breath sounds equal bilaterally. GASTROINTESTINAL: Abdomen soft, non-tender, nondistended. Bowel sounds x4. MUSCULOSKELETAL: No obvious deformities. No clubbing or cyanosis. No edema. Back brace in place. NEUROLOGICAL: Awake and alert. No focal neurological deficits. Moves upper and lower extremities spontaneously. Normal speech. PSYCHIATRIC: Appropriate mood and affect; insight and judgment normal. A/P Problem List: (1) Symptomatic bradycardia ICD Code: R00.1 Status: Acute (2) First degree AV block ICD Code: I44.0 Status: Acute (3) CHF (congestive heart failure) ICD Code: I50.9 Status: Chronic (4) Acute on chronic kidney failure ICD Code: N17.9 Status: Acute (5) Hypothyroidism ICD Code: E03.9 Status: Chronic (6) Hypertension ICD Code: I10 Status: Chronic (7) Compression fracture of L4 lumbar vertebra ICD Code: S32.040A Status: Acute Assessment and Plan Symptomatic Dizziness/ bradycardia/ hypotension The pt's heart rate was in the 40s during his episode of dizziness. He is on amiodarone and Coreg. EKG with 1st degree AVB and conduction delay. EKG 12/21 with NSR. Trops flat. - holding Coreg and continue amiodarone. - telemetry. - cardiology consult if recurs. - midodrine added. Atrial fibrillation On amiodarone and Coreg as an outpt, along with anticoagulation. - hold Coreg as above. - telemetry. - continue anticoagulation. L4 fracture The pt was supposed to follow up with Dr. Wynn. Orthopedic surgery consulted and recommended NS or IR consult for kyphoplasty if needed. - pain control with a bowel regimen. - PT/ OT. Recommends SNF, case management consulted. - IR consult placed for kyphoplasty. ESRD On dialysis. Nephrology consult appreciated. - continue dialysis per nephrology. - continue diuresis. - follow BMP and avoid nephrotoxic agents. Constipation The patient reports severe constipation. - Extensive bowel regimen ordered. Resolved. Chronic diastolic CHF Previous echo with EF 50%. Pt appears euvolemic. CXR with increased vascularity , no edema. - continue volume management with dialysis. - continue cardiac regimen. PPx: Eliquis on hold for kyphoplasty Written by Shaheen Yates, acting as scribe for Dr. Ronquillo on 12/23/16 at 13:43. The documentation accurately reflects the work performed [id number] by me on at 1343. Discharge Planning Disposition after kyphoplasty Problem Qualifiers (1) CHF (congestive heart failure): Qualified Code: I50.32 - Chronic diastolic congestive heart failure (2) Hypothyroidism: Qualified Code: E03.9 - Hypothyroidism, unspecified type (3) Hypertension: Qualified Code: I10 - Essential hypertension (4) Compression fracture of L4 lumbar vertebra: Qualified Code: S32.040A - Compression fracture of L4 lumbar vertebra, closed, initial encounter Shaheen Yates Dec 23, 2016 1:43 pm Li Ronquillo DO Dec 23, 2016 4:38 pm
[2016-12-23] MEDS: ATORVASTATIN 40 MG TAB PO SCH (21:33)
[2016-12-23] MEDS: TAMSULOSIN HCL 0.4 MG CAP PO SCH (21:33)
[2016-12-23] MEDS: MELATONIN 5 MG TAB PO SCH (21:33)
[2016-12-23] MEDS: SENNOSIDES 8.6 MG TAB PO SCH (21:34)
[2016-12-24] VITALS (10 sets, daily range): BP systolic 100–124; BP diastolic 53–59; PULSE 64–78; RESP 16–20; TEMP 97.2–98.2; O2SAT 92–95
[2016-12-24] MEDS: DOCUSATE SODIUM 100 MG CAP PO SCH ×3 (00:33→22:49)
[2016-12-24] MEDS: MIDODRINE 5 MG TAB PO SCH ×3 (06:34→17:05)
[2016-12-24] MEDS: SEVELAMER CARBONATE 800 MG TAB PO SCH ×3 (08:51→17:05)
[2016-12-24] MEDS: LACTOBACILLUS ACIDOPHILUS TAB PO SCH (08:51)
[2016-12-24] MEDS: LEVOTHYROXINE SODIUM 125 MCG TAB PO SCH (08:51)
[2016-12-24] MEDS: AMIODARONE 200 MG TAB PO SCH (08:51)
[2016-12-24] MEDS: LORATADINE 10 MG TAB PO SCH ×2 (08:52→22:49)
[2016-12-24] MEDS: FUROSEMIDE 80 MG TAB PO SCH ×2 (08:52→22:47)
[2016-12-24] MEDS: FAMOTIDINE 20 MG TAB PO SCH (08:52)
[2016-12-24] MEDS: SODIUM CHLORIDE 0.9% FLUSH 5 ML FLUSH FLUSH SCH ×2 (08:52→22:43)
--- NOTE | 2016-12-24 10:59 | HHI.NPPN ---
Subjective General Problems: Anemia, Hypotension Renal Failure: Chronic, End Stage Renal Disease Interval History He had dialysis yesterday without complication or concern. Pain controlled, he is able to ambulate. Eliantoniais on hold for kyphoplasty. (Ilana Tran) Review of Systems General Constitutional: Fatigue (Ilana Tran) Respiratory Lungs: SOB (Ilana Tran) Cardiovascular Cardiac: SCRUGGS (Ilana Tran) Musculoskeletal MS: Pain/Stiffness MS Remarks back pain (Ilana Tran) Objective Data Data 12/23/16 12/24/16 19:00 07:00 Output Total 2000 ml Balance -2000 ml Output Hemodialysis 2000 ml Vital Signs Date Time Temp Pulse Resp B/P Pulse Ox O2 Delivery O2 Flow Rate FiO2 12/24/16 08:40 92 Nasal Cannula 2.00 12/24/16 07:37 97.2 67 18 109/55 94 12/24/16 06:14 78 12/24/16 04:08 95 12/24/16 03:58 98.2 65 18 112/55 12/24/16 00:17 67 16 113/57 94 12/23/16 21:06 98.8 72 18 110/52 95 12/23/16 15:46 98.2 70 17 97/51 96 12/23/16 12:00 97.2 74 17 122/58 96 (Ilana Tran) -: 12/21/16 0406 12/23/16 0522 Tubes & Lines: Perma-Cath (Ilana Tran) Physical Exam General Appearance: Well Developed, Well Nourished, No Acute Distress, Comfortable ( Ilana Tran) Eyes Eye Exam: Pupils Equal (Ilana Tran) Throat Throat Exam: Oral Mucosa [place] & Moist (Ilana Tran) Neck Neck Exam: Neck Supple, Trachea Midline (Ilana Tran) Pulmonary Resp Exam: Clear Bilaterally, Breath Sounds Equal, No Distress (Ilana Tran) Cardiology CV Exam: Good Perfusion, Irregular, Arrhythmia CV Remarks 3/6 Systolic ejection murmur, heard best right sternal border (Ilana Tran) Gastrointestinal/Abdomen GI Exam: Soft, Non-Tender, Bowel Sounds Present (Ilana Tran) Musculoskeletal MS Exam: Joints Intact, Normal Tone (Ilana Tran) Integumentary Skin Exam: Warm, Dry, Intact (Ilana Tran) Extremeties Extremities Exam: No Edema, Pedal Pulses Palpable (Ilana Tran) Neurologic Neuro Exam: Alert, Awake, Oriented, Speech Clear, Moving All Extremities ( Ilana Tran) Psychiatric Psych Exam: Appropriate Responses (Ilana Tran) Assessment/Plan Discussed Condition With: Patient Assessment Summary: Anemia of CKD, Hypertension, End Stage Renal Disease Problem List: (1) ESRD (end stage renal disease) Plan: 2L fluid removal yesterday with dialysis, maintain T-Th-Sat dialysis schedule no current dialysis concerns no IVF required, on high protein diet renal panel in am he does have left AVF that he had ligated but apparently it was used very recently and is still functional has new AVF right arm that is occluded, may need vascular evaluation during this admission. Will call and discuss with Dr. Rudolph he has functioning Permcath to use for dialysis (2) Compression fracture of L4 lumbar vertebra Plan: IR consulted for kyphoplasty he has LSO brace to use, prn pain medications Eliquis on hold since Thursday for upcoming procedure discussed fall precautions (3) CHF (congestive heart failure) Plan: fluid volume status acceptable adjust UF as needed avoid IVF he is on lasix 80 BID per home med list (4) Symptomatic bradycardia Plan: thought to be due to coreg and amiodarone use, coreg has been stopped heart rate has improved , monitor (5) Dizziness Plan: related to bradycardia, improved (6) Anemia Plan: epogen with dialysis (7) Metabolic bone disease Plan: phosphorus level borderline low,, continue Renvela with meals but reduce dosage to 800 mg evaluate intermittently (8) Hypotension Plan: previously hypertensive, he was on losartan and coreg to control rate BP has improved/stabilized on TID midodrine, ARB on hold continue and monitor blood pressures (Ilana Tran) Plan patient was seen and examined. Discussed with patient and later with his . Intradialytic hypotension has become an issue, we will consider changing dialysate temperature to 35 C, using UF profile. Discussed with Dr. Rudolph who his going to evaluate his newly created right arm AVF which has not matured satisfactorily. (Rashid Hall MD) Problem Qualifiers (1) Compression fracture of L4 lumbar vertebra: Qualified Code: S32.040A - Compression fracture of L4 lumbar vertebra, closed, initial encounter (2) CHF (congestive heart failure): Qualified Code: I50.32 - Chronic diastolic congestive heart failure Ilana Tran Dec 24, 2016 10:59 Rashid Hall MD Dec 24, 2016 21:39
--- NOTE | 2016-12-24 12:21 | HHI.PR ---
Subjective Remarks Follow-up for lower back pain. The patient has no acute complaints today. He wants to know about changes made to BP medications. Discussed with RN, unsure when kyphoplasty is going to be done, will contact IR. Objective Vitals Vital Signs Date Time Temp Pulse Resp B/P Pulse Ox O2 Delivery O2 Flow Rate FiO2 12/24/16 11:07 97.6 64 16 100/59 93 12/24/16 08:40 92 Nasal Cannula 2.00 12/24/16 07:37 97.2 67 18 109/55 94 12/24/16 06:14 78 12/24/16 04:08 95 12/24/16 03:58 98.2 65 18 112/55 12/24/16 00:17 67 16 113/57 94 12/23/16 21:06 98.8 72 18 110/52 95 12/23/16 15:46 98.2 70 17 97/51 96 I/O 12/23/16 12/23/16 12/23/16 12/24/16 12/24/16 12/24/16 07:00 15:00 23:00 07:00 15:00 23:00 Output Total 2000 ml Balance -2000 ml Output Hemodialysis 2000 ml Result Diagram: 12/21/16 0406 12/23/16 0522 Imaging Last Impressions Head CT 12/20/1641 Signed Impressions: Service Date/Time: Tuesday, December 20, 2016 10:08 - CONCLUSION: No acute intracranial disease. Nonspecific white matter changes. Kash Howard MD Chest X-Ray 12/20/16 0941 Signed Impressions: Service Date/Time: Tuesday, December 20, 2016 10:01 - CONCLUSION: 1. Cardiomegaly and increased pulmonary vascularity. No pulmonary edema. 2. Left-sided jugular vascular catheter. Ksah Howard MD Lumbar Spine X-Ray 12/20/16 0000 Signed Impressions: Service Date/Time: Tuesday, December 20, 2016 19:26 - CONCLUSION: 1. Moderate compression fracture of L4 of unknown age. Osteopenia. Miles Wheeler MD Objective Remarks GENERAL: Well-developed well-nourished. In no acute distress. SKIN: Warm and dry. No lesions noted. HEENT: Normocephalic. Pupils equal and round. Mucous membranes pink and moist. CARDIOVASCULAR: Regular rate and rhythm. Systolic murmur appreciated. RESPIRATORY: No accessory muscle use. Clear to auscultation. Breath sounds equal bilaterally. GASTROINTESTINAL: Abdomen soft, non-tender, nondistended. Bowel sounds x4. MUSCULOSKELETAL: No obvious deformities. No clubbing or cyanosis. No edema. Back brace in place. NEUROLOGICAL: Awake and alert. No focal neurological deficits. Moves upper and lower extremities spontaneously. Normal speech. PSYCHIATRIC: Appropriate mood and affect; insight and judgment normal. A/P Problem List: (1) Symptomatic bradycardia ICD Code: R00.1 Status: Acute (2) First degree AV block ICD Code: I44.0 Status: Acute (3) CHF (congestive heart failure) ICD Code: I50.9 Status: Chronic (4) Acute on chronic kidney failure ICD Code: N17.9 Status: Acute (5) Hypothyroidism ICD Code: E03.9 Status: Chronic (6) Hypertension ICD Code: I10 Status: Chronic (7) Compression fracture of L4 lumbar vertebra ICD Code: S32.040A Status: Acute Assessment and Plan Symptomatic Dizziness/ bradycardia/ hypotension The pt's heart rate was in the 40s during his episode of dizziness. He is on amiodarone and Coreg. EKG with 1st degree AVB and conduction delay. EKG 12/21 with NSR. Trops flat. - holding Coreg and continue amiodarone. - telemetry. - cardiology consult if recurs. - midodrine added. Atrial fibrillation On amiodarone and Coreg as an outpt, along with anticoagulation. - hold Coreg as above. - telemetry. - continue anticoagulation when cleared by IR. L4 fracture The pt was supposed to follow up with Dr. Wynn. Orthopedic surgery consulted and recommended NS or IR consult for kyphoplasty if needed. - pain control with a bowel regimen. - PT/ OT. Recommends SNF, case management consulted. - IR consult placed for kyphoplasty, Pletal and Eliquis on hold, discussed with Dr. Asher, to be done Thursday. ESRD On dialysis. Nephrology consult appreciated. - continue dialysis per nephrology. - continue diuresis. - follow BMP and avoid nephrotoxic agents. Constipation The patient reports severe constipation. - Extensive bowel regimen ordered. Resolved. Chronic diastolic CHF Previous echo with EF 50%. Pt appears euvolemic. CXR with increased vascularity , no edema. - continue volume management with dialysis. - continue cardiac regimen. PPx: Eliquis on hold for kyphoplasty. SCDs. Written by Shaheen Yates, acting as scribe for Dr. Ronquillo on 12/24/16 at 12:20. The documentation accurately reflects the work performed [id number] by me on at 12:20. Discharge Planning Disposition after kyphoplasty. HHC vs SNF at [place]. Problem Qualifiers (1) CHF (congestive heart failure): Qualified Code: I50.32 - Chronic diastolic congestive heart failure (2) Hypothyroidism: Qualified Code: E03.9 - Hypothyroidism, unspecified type (3) Hypertension: Qualified Code: I10 - Essential hypertension (4) Compression fracture of L4 lumbar vertebra: Qualified Code: S32.040A - Compression fracture of L4 lumbar vertebra, closed, initial encounter Shaheen Yates Dec 24, 2016 12:21 Li Ronquillo DO Dec 24, 2016 20:12
[2016-12-24] MEDS: MELATONIN 5 MG TAB PO SCH (22:44)
[2016-12-24] MEDS: ATORVASTATIN 40 MG TAB PO SCH (22:47)
[2016-12-24] MEDS: TAMSULOSIN HCL 0.4 MG CAP PO SCH (22:47)
[2016-12-24] MEDS: SENNOSIDES 8.6 MG TAB PO SCH (22:48)
[2016-12-24] MEDS: HEPARIN SODIUM - SQ 10,000 UNITS/ML VIAL SQ SCH (22:50)
[2016-12-25] VITALS (7 sets, daily range): BP systolic 106–119; BP diastolic 53–58; PULSE 60–67; RESP 16–20; TEMP 97.4–98.5; O2SAT 94–96
[2016-12-25] MEDS: MIDODRINE 5 MG TAB PO SCH ×3 (06:39→16:09)
[2016-12-25 06:46] LABS: BICARBONATE 32.5 MEQ/L (21.0-32.0)
--- NOTE | 2016-12-25 08:09 | HHI.NPPN ---
Subjective General Problems: Anemia, Hypotension Renal Failure: Chronic, End Stage Renal Disease Interval History no new issues. To have dialysis today. Review of Systems General Constitutional: Fatigue Respiratory Lungs: SOB Cardiovascular Cardiac: SCRUGGS Musculoskeletal MS: Pain/Stiffness MS Remarks back pain Objective Data Data 12/24/16 12/25/16 19:00 07:00 Output Total 200 ml Balance -200 ml Output Urine Total 200 ml Vital Signs Date Time Temp Pulse Resp B/P Pulse Ox O2 Delivery O2 Flow Rate FiO2 12/25/16 06:18 96 2.00 12/25/16 04:44 98.0 60 20 106/54 95 12/25/16 00:47 97.4 63 20 113/53 95 12/25/16 00:04 18 12/24/16 20:45 67 12/24/16 20:00 98.0 69 20 124/59 93 12/24/16 16:16 97.3 69 18 113/53 95 12/24/16 11:07 97.6 64 16 100/59 93 12/24/16 08:40 92 Nasal Cannula 2.00 -: 12/21/16 0406 12/25/16 0532 Tubes & Lines: Perma-Cath Physical Exam General Appearance: Well Developed, Well Nourished, No Acute Distress, Comfortable Eyes Eye Exam: Pupils Equal Throat Throat Exam: Oral Mucosa [place] & Moist Neck Neck Exam: Neck Supple, Trachea Midline Pulmonary Resp Exam: Clear Bilaterally, Breath Sounds Equal, No Distress Cardiology CV Exam: Good Perfusion, Irregular, Arrhythmia Gastrointestinal/Abdomen GI Exam: Soft, Non-Tender, Bowel Sounds Present Musculoskeletal MS Exam: Joints Intact, Normal Tone Integumentary Skin Exam: Warm, Dry, Intact Extremeties Extremities Exam: No Edema, Pedal Pulses Palpable Neurologic Neuro Exam: Alert, Awake, Oriented, Speech Clear, Moving All Extremities Psychiatric Psych Exam: Appropriate Responses Assessment/Plan Discussed Condition With: Patient Assessment Summary: Anemia of CKD, Hypertension, End Stage Renal Disease Problem List: (1) ESRD (end stage renal disease) Plan: Dialysis today, maintain T-Th-Thu dialysis schedule no IVF required, on high protein diet renal panel in am he does have left AVF that he had ligated but apparently it was used very recently and is still functional New AVF in the right arm has not matured as well as one would hope, discussed with Dr. Rudolph, he is going to see him. (2) Compression fracture of L4 lumbar vertebra Plan: IR consulted for kyphoplasty he has LSO brace to use, prn pain medications Eliquis on hold since Thursday for upcoming procedure discussed fall precautions (3) CHF (congestive heart failure) Plan: fluid volume status acceptable adjust UF as needed avoid IVF he is on lasix 80 BID per home med list (4) Symptomatic bradycardia Plan: thought to be due to coreg and amiodarone use, coreg has been stopped heart rate has improved , monitor (5) Dizziness Plan: related to bradycardia, improved (6) Anemia Plan: epogen with dialysis (7) Metabolic bone disease Plan: phosphorus level borderline low,, continue Renvela with meals but reduce dosage to 800 mg evaluate intermittently (8) Hypotension Plan: previously hypertensive, he was on losartan and coreg to control rate BP has improved/stabilized on TID midodrine, ARB on hold continue and monitor blood pressures Problem Qualifiers (1) Compression fracture of L4 lumbar vertebra: Qualified Code: S32.040A - Compression fracture of L4 lumbar vertebra, closed, initial encounter (2) CHF (congestive heart failure): Qualified Code: I50.32 - Chronic diastolic congestive heart failure Rashid Hall MD Dec 25, 2016 08:09
--- NOTE | 2016-12-25 08:25 | HHI.PR ---
Subjective Remarks Follow-up for compression fracture. The patient has no acute complaints today. Has had a normal BM daily for 3 days. Still has some back pain whenever he tries to move or get up. The pain medicine is helping. Objective Vitals Vital Signs Date Time Temp Pulse Resp B/P Pulse Ox O2 Delivery O2 Flow Rate FiO2 12/25/16 06:18 96 2.00 12/25/16 04:44 98.0 60 20 106/54 95 12/25/16 00:47 97.4 63 20 113/53 95 12/25/16 00:04 18 12/24/16 20:45 67 12/24/16 20:00 98.0 69 20 124/59 93 12/24/16 16:16 97.3 69 18 113/53 95 12/24/16 11:07 97.6 64 16 100/59 93 12/24/16 08:40 92 Nasal Cannula 2.00 I/O 12/24/16 12/24/16 12/24/16 12/25/16 12/25/16 12/25/16 07:00 15:00 23:00 07:00 15:00 23:00 Output Total 200 ml Balance -200 ml Output Urine Total 200 ml Result Diagram: 12/21/16 0406 12/25/16 0532 Imaging Last Impressions Head CT 12/20/16940 Signed Impressions: Service Date/Time: Tuesday, December 20, 2016 10:08 - CONCLUSION: No acute intracranial disease. Nonspecific white matter changes. Kash Howard MD Chest X-Ray 12/20/1641 Signed Impressions: Service Date/Time: Tuesday, December 20, 2016 10:01 - CONCLUSION: 1. Cardiomegaly and increased pulmonary vascularity. No pulmonary edema. 2. Left-sided jugular vascular catheter. Kash Howard MD Lumbar Spine X-Ray 12/20/16 0000 Signed Impressions: Service Date/Time: Tuesday, December 20, 2016 19:26 - CONCLUSION: 1. Moderate compression fracture of L4 of unknown age. Osteopenia. Miles Wheeler MD Objective Remarks GENERAL: Well-developed well-nourished. In no acute distress. SKIN: Warm and dry. No lesions noted. HEENT: Normocephalic. Pupils equal and round. Mucous membranes pink and moist. CARDIOVASCULAR: Regular rate and rhythm. Harsh 3/6 systolic murmur appreciated. RESPIRATORY: No accessory muscle use. Clear to auscultation. Breath sounds equal bilaterally. GASTROINTESTINAL: Abdomen soft, non-tender, nondistended. Bowel sounds x4. MUSCULOSKELETAL: No obvious deformities. No clubbing or cyanosis. No edema. Back brace in place. NEUROLOGICAL: Awake and alert. No focal neurological deficits. Moves upper and lower extremities spontaneously. Normal speech. PSYCHIATRIC: Appropriate mood and affect; insight and judgment normal. A/P Problem List: (1) Symptomatic bradycardia ICD Code: R00.1 Status: Acute (2) First degree AV block ICD Code: I44.0 Status: Acute (3) CHF (congestive heart failure) ICD Code: I50.9 Status: Chronic (4) Acute on chronic kidney failure ICD Code: N17.9 Status: Acute (5) Hypothyroidism ICD Code: E03.9 Status: Chronic (6) Hypertension ICD Code: I10 Status: Chronic (7) Compression fracture of L4 lumbar vertebra ICD Code: S32.040A Status: Acute Assessment and Plan Symptomatic Dizziness/ bradycardia/ hypotension The pt's heart rate was in the 40s during his episode of dizziness. He is on amiodarone and Coreg. EKG with 1st degree AVB and conduction delay. EKG 12/21 with NSR. Trops flat. - holding Coreg and continue amiodarone. - telemetry. - cardiology consult if recurs. - midodrine added with good effect on BP. Atrial fibrillation On amiodarone and Coreg as an outpt, along with anticoagulation. - hold Coreg as above. - telemetry. - continue anticoagulation/antiplatelet when cleared by IR. L4 fracture The pt was supposed to follow up with Dr. Wynn. Orthopedic surgery consulted and recommended NS or IR consult for kyphoplasty if needed. - pain control with a bowel regimen. - PT/ OT. Recommends SNF, case management consulted. - IR consult placed for kyphoplasty, Pletal and Eliquis on hold, to be done Thursday. ESRD On dialysis. Nephrology consult appreciated. - continue dialysis per nephrology. - continue diuresis. - follow BMP and avoid nephrotoxic agents. Constipation The patient reports severe constipation. - Extensive bowel regimen ordered. Resolved. Chronic diastolic CHF Previous echo with EF 50%. Pt appears euvolemic. CXR with increased vascularity , no edema. - continue volume management with dialysis. - continue cardiac regimen. PPx: Eliquis on hold for kyphoplasty. SCDs. Heparin for today. Plan of care discussed with Dr. Ronquillo Discharge Planning Disposition after kyphoplasty. C vs SNF at [place]. Problem Qualifiers (1) CHF (congestive heart failure): Qualified Code: I50.32 - Chronic diastolic congestive heart failure (2) Hypothyroidism: Qualified Code: E03.9 - Hypothyroidism, unspecified type (3) Hypertension: Qualified Code: I10 - Essential hypertension (4) Compression fracture of L4 lumbar vertebra: Qualified Code: S32.040A - Compression fracture of L4 lumbar vertebra, closed, initial encounter Shaheen Yates Dec 25, 2016 8:25 am Li Ronquillo DO Dec 25, 2016 6:07 pm
[2016-12-25] MEDS: FAMOTIDINE 20 MG TAB PO SCH (08:50)
[2016-12-25] MEDS: SEVELAMER CARBONATE 800 MG TAB PO SCH ×3 (08:50→14:41)
[2016-12-25] MEDS: AMIODARONE 200 MG TAB PO SCH (08:50)
[2016-12-25] MEDS: HEPARIN SODIUM - SQ 10,000 UNITS/ML VIAL SQ SCH (08:51)
[2016-12-25] MEDS: FUROSEMIDE 80 MG TAB PO SCH ×2 (08:51→21:34)
[2016-12-25] MEDS: LACTOBACILLUS ACIDOPHILUS TAB PO SCH (08:51)
[2016-12-25] MEDS: LEVOTHYROXINE SODIUM 125 MCG TAB PO SCH (08:52)
[2016-12-25] MEDS: LORATADINE 10 MG TAB PO SCH ×2 (08:52→21:34)
[2016-12-25] MEDS: SODIUM CHLORIDE 0.9% FLUSH 5 ML FLUSH FLUSH SCH ×2 (08:52→21:33)
[2016-12-25] MEDS: SODIUM CHLORIDE 0.9% FLUSH 5 ML FLUSH IVF PRN (11:16)
[2016-12-25] MEDS: GENTAMICIN SULFATE (DIALYSIS USE ONLY) 20 MG/2 ML VIAL IV PRN (11:16)
[2016-12-25] MEDS: EPOETIN ALFA 10,000 UNITS/ML VIAL IV PRN (11:16)
[2016-12-25] MEDS: SODIUM CHLOR 0.9% 1000 ML INJ 1,000 ML IV PRN ×2 (11:17→11:18)
[2016-12-25] MEDS: HEPARIN SODIUM - IV 10,000 UNITS/10 ML VIAL PRN (11:17)
[2016-12-25] MEDS: DOCUSATE SODIUM 100 MG CAP PO SCH ×2 (12:00→21:59)
[2016-12-25 19:26] LABS: APTT (PATIENT) 32.6 SEC (24.3-30.1); PROTHROMBIN TIME - PATIENT 11.2 SEC (9.8-11.6)
[2016-12-25] MEDS: ATORVASTATIN 40 MG TAB PO SCH (21:33)
[2016-12-25] MEDS: TAMSULOSIN HCL 0.4 MG CAP PO SCH (21:33)
[2016-12-25] MEDS: SENNOSIDES 8.6 MG TAB PO SCH (21:34)
[2016-12-25] MEDS: MELATONIN 5 MG TAB PO SCH (21:34)
[2016-12-26] VITALS (14 sets, daily range): BP systolic 115–187; BP diastolic 44–80; PULSE 60–77; RESP 16–20; TEMP 97.6–98.2; O2SAT 95–100
[2016-12-26] MEDS: MIDODRINE 5 MG TAB PO SCH ×3 (06:06→16:14)
[2016-12-26 08:09] LABS: BICARBONATE 33.8 MEQ/L (21.0-32.0); MAGNESIUM 2.3 MG/DL (1.5-2.5); POTASSIUM 3.6 MEQ/L (3.5-5.1)
--- NOTE | 2016-12-26 08:35 | HHI.NPPN ---
Subjective General Problems: Anemia, Hypotension Renal Failure: Chronic, End Stage Renal Disease Interval History Resting quietly. Currently NPO for kyphoplasty later today. (Ilana Tran) Review of Systems General Constitutional: Fatigue (Ilana Tran) Respiratory Lungs: SOB (Ilana Tran) Cardiovascular Cardiac: SCRUGGS (Ilana Tran) Musculoskeletal MS: Pain/Stiffness MS Remarks back pain (Ilana Tran) Objective Data Data 12/25/16 12/26/16 19:00 07:00 Intake Total 2 ml Output Total 5000 ml Balance -4998 ml IV Total 2 ml Hemodialysis 5000 ml # Voids 2 Vital Signs Date Time Temp Pulse Resp B/P Pulse Ox O2 Delivery O2 Flow Rate FiO2 12/26/16 07:47 98.1 60 18 130/60 96 12/26/16 06:20 96 Nasal Cannula 2.00 12/26/16 04:35 60 12/26/16 04:12 98.2 65 19 115/65 96 12/25/16 23:43 98.5 64 19 116/58 95 12/25/16 19:26 98.1 67 19 113/53 94 12/25/16 15:44 98.3 67 16 119/57 95 (Ilana Tran) -: 12/26/16 0650 Tubes & Lines: Perma-Cath (Ilana Tran) Physical Exam General Appearance: Well Developed, Well Nourished, No Acute Distress, Comfortable ( Ilana Tran) Eyes Eye Exam: Pupils Equal (Ilana Tran) Throat Throat Exam: Oral Mucosa [place] & Moist (Ilana Tran) Neck Neck Exam: Neck Supple, Trachea Midline (Ilana Tran) Pulmonary Resp Exam: Clear Bilaterally, Breath Sounds Equal, No Distress (Ilana Tran) Cardiology CV Exam: Good Perfusion, Irregular, Arrhythmia CV Remarks 3/6 Systolic ejection murmur, heard best right sternal border (Ilana Tran) Gastrointestinal/Abdomen GI Exam: Soft, Non-Tender, Bowel Sounds Present (Ilana Tran) Musculoskeletal MS Exam: Joints Intact, Normal Tone (Ilana Tran) Integumentary Skin Exam: Warm, Dry, Intact (Ilana Tran) Extremeties Extremities Exam: No Edema, Pedal Pulses Palpable (Ilana Tran) Neurologic Neuro Exam: Alert, Awake, Oriented, Speech Clear, Moving All Extremities ( Ilana Tran) Psychiatric Psych Exam: Appropriate Responses (Ilana Tran) Assessment/Plan Discussed Condition With: Patient Assessment Summary: Anemia of CKD, Hypertension, End Stage Renal Disease Problem List: (1) ESRD (end stage renal disease) Plan: Maintain --Thu dialysis schedule, he had 5 liter UF yesterday renal panel unremarkable no IVF required on high protein diet when no longer NPO continue current plan Permcath for HD he does have left AVF that he had ligated but apparently it was used very recently and is still functional New AVF in the right arm has not matured as well as one would hope, discussed with Dr. Rudolph, awaiting evaluation (2) Compression fracture of L4 lumbar vertebra Plan: to have kyphoplasty today by IR he has LSO brace to use, prn pain medications Eliquis on hold since Thursday for upcoming procedure discussed fall precautions (3) CHF (congestive heart failure) Plan: fluid volume status acceptable adjust UF as needed avoid IVF he is on lasix 80 BID per home med list (4) Symptomatic bradycardia Plan: thought to be due to coreg and amiodarone use, coreg has been stopped heart rate has improved , monitor (5) Dizziness Plan: related to bradycardia, improved (6) Anemia Plan: epogen with dialysis (7) Metabolic bone disease Plan: phosphorus level borderline low, hold Renvela resume when appropriate (8) Hypotension Plan: previously hypertensive, he was on losartan and coreg to control rate BP has improved/stabilized on TID midodrine, ARB on hold continue and monitor blood pressures (Ilana Tran) Plan patient was seen and examined. Agree with above assessment and plan. Kyphoplasty today. (Rashid Hall MD) Problem Qualifiers (1) Compression fracture of L4 lumbar vertebra: Qualified Code: S32.040A - Compression fracture of L4 lumbar vertebra, closed, initial encounter (2) CHF (congestive heart failure): Qualified Code: I50.32 - Chronic diastolic congestive heart failure Ilana Tran Dec 26, 2016 08:35 Rashid Hall MD Dec 26, 2016 14:40
[2016-12-26] MEDS: LORATADINE 10 MG TAB PO SCH ×2 (08:36→20:56)
[2016-12-26] MEDS: FAMOTIDINE 20 MG TAB PO SCH (08:36)
[2016-12-26] MEDS: LEVOTHYROXINE SODIUM 125 MCG TAB PO SCH (08:36)
[2016-12-26] MEDS: AMIODARONE 200 MG TAB PO SCH (08:36)
[2016-12-26] MEDS: FUROSEMIDE 80 MG TAB PO SCH ×2 (08:36→20:55)
[2016-12-26] MEDS: LACTOBACILLUS ACIDOPHILUS TAB PO SCH (08:36)
[2016-12-26] MEDS: SODIUM CHLORIDE 0.9% FLUSH 5 ML FLUSH FLUSH SCH ×2 (08:37→20:56)
--- NOTE | 2016-12-26 10:07 | PD.RAD ---
Radiology Note HPI 86 Y/O with multiple medical problems (CHF, ESRD on dialysis, PVD) presented to the ED with AV block. PT has severe Low back pain due to recent compression fracture of L4 documented by CT 12/13/16. He is unable to tolerate conservative management due to severe constipation with pain meds. Pt state he is fine lying still but if he moves the pain is a 10/10. He was on Pletal at time of presentation to the ED. Imaging. CT of the lumbar spine reviewed and confirms moderate compression fracture of L4 Plan 1. Kyphoplasty of L4 2. Anticoagulation has been held for 4 days due to Pletal Tyler Asher MD Dec 26, 2016 10:07
--- NOTE | 2016-12-26 10:28 | HHI.PR ---
Subjective Remarks Follow-up for compression fracture. Patient seen with at bedside. Going for kyphoplasty today, discuss with Dr. Asher. The patient has no acute complaints. The patient and declined SNF for C, states they have plenty of help as well as a [employer] at home. The patient is following with Dr. Reyes for CHF and heart murmur. Objective Vitals Vital Signs Date Time Temp Pulse Resp B/P Pulse Ox O2 Delivery O2 Flow Rate FiO2 12/26/16 08:04 61 12/26/16 07:47 98.1 60 18 130/60 96 12/26/16 06:20 96 Nasal Cannula 2.00 12/26/16 04:35 60 12/26/16 04:12 98.2 65 19 115/65 96 12/25/16 23:43 98.5 64 19 116/58 95 12/25/16 19:26 98.1 67 19 113/53 94 12/25/16 15:44 98.3 67 16 119/57 95 I/O 12/25/16 12/25/16 12/25/16 12/26/16 12/26/16 12/26/16 07:00 15:00 23:00 07:00 15:00 23:00 Intake Total 2 ml 10 ml Output Total 200 ml 5000 ml 200 ml Balance -200 ml -4998 ml -190 ml Intake Oral 10 ml IV Total 2 ml Output Urine Total 200 ml 200 ml Hemodialysis 5000 ml # Voids 2 Result Diagram: 12/26/16 0650 Imaging Last Impressions Head CT 12/20/16 0941 Signed Impressions: Service Date/Time: Tuesday, December 20, 2016 10:08 - CONCLUSION: No acute intracranial disease. Nonspecific white matter changes. Kash Howard MD Chest X-Ray 12/20/16 0941 Signed Impressions: Service Date/Time: Tuesday, December 20, 2016 10:01 - CONCLUSION: 1. Cardiomegaly and increased pulmonary vascularity. No pulmonary edema. 2. Left-sided jugular vascular catheter. Kash Howard MD Lumbar Spine X-Ray 12/20/16 0000 Signed Impressions: Service Date/Time: Tuesday, December 20, 2016 19:26 - CONCLUSION: 1. Moderate compression fracture of L4 of unknown age. Osteopenia. Miles Wheeler MD Objective Remarks GENERAL: Well-developed well-nourished. In no acute distress. SKIN: Warm and dry. No lesions noted. HEENT: Normocephalic. Pupils equal and round. Mucous membranes pink and moist. CARDIOVASCULAR: Regular rate and rhythm. Harsh 3/6 systolic murmur appreciated. RESPIRATORY: No accessory muscle use. Clear to auscultation. Breath sounds equal bilaterally. GASTROINTESTINAL: Abdomen soft, non-tender, nondistended. Bowel sounds x4. MUSCULOSKELETAL: No obvious deformities. No clubbing or cyanosis. No edema. Back brace in place. NEUROLOGICAL: Awake and alert. No focal neurological deficits. Moves upper and lower extremities spontaneously. Normal speech. PSYCHIATRIC: Appropriate mood and affect; insight and judgment normal. A/P Problem List: (1) Symptomatic bradycardia ICD Code: R00.1 Status: Acute (2) First degree AV block ICD Code: I44.0 Status: Acute (3) CHF (congestive heart failure) ICD Code: I50.9 Status: Chronic (4) Acute on chronic kidney failure ICD Code: N17.9 Status: Acute (5) Hypothyroidism ICD Code: E03.9 Status: Chronic (6) Hypertension ICD Code: I10 Status: Chronic (7) Compression fracture of L4 lumbar vertebra ICD Code: S32.040A Status: Acute Assessment and Plan Symptomatic Dizziness/ bradycardia/ hypotension The pt's heart rate was in the 40s during his episode of dizziness. He was on amiodarone and Coreg. EKG with 1st degree AVB and conduction delay. EKG 12/21 with NSR. Trops flat. - holding Coreg and continue amiodarone. - telemetry. - cardiology consult if recurs. - midodrine added with good effect on BP. Atrial fibrillation On amiodarone and Coreg as an outpt, along with anticoagulation. - hold Coreg as above. - telemetry. - continue anticoagulation/antiplatelet when cleared by IR. L4 fracture The pt was supposed to follow up with Dr. Wynn. Orthopedic surgery consulted and recommended NS or IR consult for kyphoplasty if needed. - pain control with a bowel regimen. - PT/ OT. Patient and family declines SNF/HHC. - IR consult placed for kyphoplasty, Pletal and Eliquis on hold. ESRD On dialysis. Nephrology consult appreciated. - continue dialysis per nephrology. - continue diuresis. - follow BMP and avoid nephrotoxic agents. Constipation The patient reports severe constipation. - Extensive bowel regimen ordered. Resolved. Chronic diastolic CHF Previous echo with EF 50%. Pt appears euvolemic. CXR with increased vascularity , no edema. - continue volume management with dialysis. - continue cardiac regimen. - Continue outpatient cardiology follow-up PPx: Clair on hold for kyphoplasty. SCDs. Written by Shaheen Yates, acting as scribe for Dr. Ronquillo on 12/26/16 at 10:27. The documentation accurately reflects the work performed [id number] by me on at 1027. Discharge Planning Hopefully discharge later today versus tomorrow a.m. after kyphoplasty. Problem Qualifiers (1) CHF (congestive heart failure): Qualified Code: I50.32 - Chronic diastolic congestive heart failure (2) Hypothyroidism: Qualified Code: E03.9 - Hypothyroidism, unspecified type (3) Hypertension: Qualified Code: I10 - Essential hypertension (4) Compression fracture of L4 lumbar vertebra: Qualified Code: S32.040A - Compression fracture of L4 lumbar vertebra, closed, initial encounter Shaheen Yates Dec 26, 2016 10:28 am Li Ronquillo DO Dec 26, 2016 3:28 pm
[2016-12-26] MEDS ORDERED: KETAMINE HCL 500 MG/5 ML VIAL ONE (11:39)
[2016-12-26] MEDS ORDERED: METOCLOPRAMIDE HCL 10 MG/2 ML VIAL ONE (11:39)
[2016-12-26] MEDS ORDERED: BUPIVACAINE HCL PF 0.75% 30 ML VIAL ONE (11:54)
--- NOTE | 2016-12-26 12:33 | PD.RAD ---
Post Procedure Progress Note Pre Procedure Diagnosis: (1) Compression fracture of L4 lumbar vertebra Post Procedure Diagnosis: (1) Compression fracture of L4 lumbar vertebra Procedure Date: Dec 26, 2016 Supervising Radiologist: Tyler Asher Anesthesia: General, Local Plan of Activity Patient to Unit: PACU Patient Condition: Fair Additional Comments: Successful kyphoplasty of L4. Good spread of cement across the vertebral body. Full dictated report to follow. See PACS Report for procedural detail/treatment Tyler Asher MD Dec 26, 2016 12:33
[2016-12-26] MEDS ORDERED: MIDAZOLAM HCL 2 MG/2 ML VIAL ONE (13:08)
--- NOTE | 2016-12-26 15:59 | RADRPT ---
EXAM DATE/TIME: 12/26/2016 11:40 [place] COMPARISON: PERM CV CATH PLCMT W US RIGHT, December 01, 2016, 9:28. INDICATIONS : Patient is in need of a kyphoplasty for an L4 compression fracture. MEDICAL HISTORY : History of VT, CHF, AFIB, ESRD, BPH, CVA, TIA, PVD, COPD, hyperlipidemia, gerd, gout, sleep apnea, h ypopthyroidism, anemia, melanoma, prostate cancer. SURGICAL HISTORY : History of bilatetral carotid endarterectomy, cardiac stent placement, AAA stent placement, prostate seed placement, bilateral AVF, right rotator cuff surgery, right finger resection, aortic bi-femoral bypass, inguinal hernia repair, tonsillectomy, adenoidectomy, cataract removal. ENCOUNTER: Initial ACUITY: 4-6 days PAIN SCORE: 0/10 FLUORO TIME: 20.4 minutes LEVEL: L4 MEDICATION(S): 1.) 30 mg Marcaine SC DEVICE: 1. 4 cc AVAMax bone cement Anesthesia and pain control was provided by the Anesthesia department. PROCEDURE : 1. Fluoroscopically-guided kyphoplasty. 2. Conscious sedation with continuous EKG and oximetry monitoring. The risks, benefits and alternatives to the procedure were explained and verbal and written consent w as obtained. The site was prepped in sterile fashion. Full sterile technique was used, including ca p, mask, sterile gloves and gown and a large sterile sheet. Hand hygiene and 2% chlorhexidine and/or betadine/alcohol prep was utilized per protocol for cutaneous antisepsis. The skin and subcutaneous tissues were infiltrated with local anesthetic solution. With fluoroscopic guidance via the above described approach access was gained to the vertebral body. Kyphoplasty was performed with cavity creation using a curved needle. The prescribed cement volume was placed. Post procedure images demonstrate cement confined to the vertebral body. Conscious sedation was performed with the prescribed dosages and duration as above. The patient tole rated the procedure well and there were no complications. EKG and oximetry remained stable throughou t the procedure. The patient was sent to post anesthesia recovery in stable condition. CONCLUSION: Uncomplicated kyphoplasty as above. Tyler Asher MD on December 26, 2016 at 15:57 Board Certified Radiologist. This report was verified electronically.
[2016-12-26] MEDS: DOCUSATE SODIUM 100 MG CAP PO SCH (16:14)
[2016-12-26] MEDS: ATORVASTATIN 40 MG TAB PO SCH (20:54)
[2016-12-26] MEDS: TAMSULOSIN HCL 0.4 MG CAP PO SCH (20:55)
[2016-12-26] MEDS: SENNOSIDES 8.6 MG TAB PO SCH (20:55)
[2016-12-26] MEDS: MELATONIN 5 MG TAB PO SCH (20:55)
[2016-12-27 04:22] VITALS: BP 120/58; PULSE 67; RESP 19; TEMP 98.2; O2SAT 95
[2016-12-27] MEDS: MIDODRINE 5 MG TAB PO SCH ×2 (06:00→12:00)
[2016-12-27] MEDS: SODIUM CHLORIDE 0.9% FLUSH 5 ML FLUSH FLUSH SCH (08:36)
[2016-12-27] MEDS: FUROSEMIDE 80 MG TAB PO SCH (08:37)
[2016-12-27] MEDS: LACTOBACILLUS ACIDOPHILUS TAB PO SCH (08:48)
[2016-12-27] MEDS: LEVOTHYROXINE SODIUM 125 MCG TAB PO SCH (08:49)
[2016-12-27] MEDS: FAMOTIDINE 20 MG TAB PO SCH (08:49)
[2016-12-27] MEDS: LORATADINE 10 MG TAB PO SCH (08:49)
[2016-12-27] MEDS: AMIODARONE 200 MG TAB PO SCH (08:49)
[2016-12-27 09:17] VITALS: PULSE 68
[2016-12-27 09:22] VITALS: BP 120/60; PULSE 62; RESP 18; TEMP 97.8; O2SAT 93
--- NOTE | 2016-12-27 09:32 | HHI.PR ---
Subjective Remarks Follow up for compression fracture. He is s/p kyphoplasty at L4 yesterday. The patient reports minimal to no pain, only slight discomfort when turning in bed to stand up. He ambulated to the restroom yesterday post procedure without difficulty. He still declines SNF placement. He reports increased urinary frequency every hour which has only started after his procedure yesterday. He takes Flomax 0.4mg hs at home. Objective Vitals Vital Signs Date Time Temp Pulse Resp B/P Pulse Ox O2 Delivery O2 Flow Rate FiO2 12/27/16 09:22 97.8 62 18 120/60 93 12/27/16 09:17 68 12/27/16 04:22 98.2 67 19 120/58 95 12/26/16 23:51 98.2 65 20 118/57 95 12/26/16 20:00 68 12/26/16 19:31 98.2 70 19 117/51 95 12/26/16 15:55 97.8 70 18 175/80 95 12/26/16 14:25 64 18 173/56 96 12/26/16 13:55 65 16 172/54 97 12/26/16 13:25 66 18 177/53 100 12/26/16 12:55 67 16 181/45 98 12/26/16 12:40 97.6 77 16 187/44 99 I/O 12/26/16 12/26/16 12/26/16 12/27/16 12/27/16 12/27/16 07:00 15:00 23:00 07:00 15:00 23:00 Intake Total 10 ml Output Total 200 ml 250 ml Balance -190 ml -250 ml Intake Oral 10 ml Output Urine Total 200 ml 250 ml Result Diagram: 12/26/16 0650 Imaging Last Impressions Vertebroplasty 12/26/16 0000 Signed Impressions: Service Date/Time: Monday, December 26, 2016 11:40 - CONCLUSION: Uncomplicated kyphoplasty as above. Tyler Asher MD Head CT 12/20/16940 Signed Impressions: Service Date/Time: Tuesday, December 20, 2016 10:08 - CONCLUSION: No acute intracranial disease. Nonspecific white matter changes. Kash Howard MD Chest X-Ray 12/20/16940 Signed Impressions: Service Date/Time: Tuesday, December 20, 2016 10:01 - CONCLUSION: 1. Cardiomegaly and increased pulmonary vascularity. No pulmonary edema. 2. Left-sided jugular vascular catheter. Kash Howard MD Lumbar Spine X-Ray 12/20/16 0000 Signed Impressions: Service Date/Time: Tuesday, December 20, 2016 19:26 - CONCLUSION: 1. Moderate compression fracture of L4 of unknown age. Osteopenia. Miles Wheeler MD Objective Remarks GENERAL: Well-nourished, well-developed pleasant elderly male patient in [facility]. SKIN: Warm and dry. No rash. HEENT: Normocephalic. Atraumatic. Pupils equal and round. No scleral icterus. No injection or drainage. Mucous membranes pink and moist. NECK: Supple. Trachea midline. CARDIOVASCULAR: Regular rate and rhythm. S1, S2 noted. 3/6 systolic murmur noted. RESPIRATORY: No accessory muscle use. Clear to auscultation. Breath sounds equal bilaterally. GASTROINTESTINAL: Abdomen soft, non-tender, nondistended. Normoactive bowel sounds x4. MUSCULOSKELETAL: No obvious deformities. Extremities without clubbing, cyanosis , or edema. NEUROLOGICAL: Awake and alert. No obvious cranial nerve deficits. Motor grossly within normal limits. Normal speech. PSYCHIATRIC: Appropriate mood and affect; insight and judgment normal. Medications and IVs Current Medications Medications (Trade) Dose Ordered Sig/Bill Route Start Time Stop Time Status Last Admin (NS Flush) 2 ml BID FLUSH 12/20/16 21:00 12/27/16 08:36 (Tylenol) 650 mg Q4H PRN PO 12/20/16 12:00 (Colace) 100 mg Q12H PO 12/20/16 12:00 12/26/16 16:14 (Tylenol) 650 mg Q6H PRN PO 12/20/16 12:00 Naloxone HCl 0.4 mg 0.4 mg UNSCH PRN IV 12/20/16 12:00 (NS 1000 ml Inj) 1,000 ml @ 0 mls/hr Q0M PRN IV 12/20/16 11:58 12/25/16 11:17 Heparin Sodium (Porcine) 8000 units 8,000 units UNSCH PRN IVF 12/20/16 12:00 Sodium Chloride 1,000 ml @ 200 mls/hr Q5H PRN IV 12/20/16 11:58 12/25/16 11:18 (NS 1000 ml Inj) 1,000 ml @ 0 mls/hr Q0M PRN IV 12/20/16 11:58 (Mannitol Inj) 12.5 gm UNSCH PRN IV 12/20/16 12:00 (Albumin 25% Inj) 25 gm UNSCH PRN IV 12/20/16 12:00 12/23/16 09:42 (NS Flush) 5 ml UNSCH PRN IVF 12/20/16 12:00 12/25/16 11:16 (Heparin Inj) UNSCH PRN .XX 12/20/16 12:00 12/25/16 11:17 (Gentamicin (Dialysis) Inj) 20 mg UNSCH PRN IV 12/20/16 12:00 12/25/16 11:16 (Zofran Inj) 4 mg UNSCH PRN IV 12/20/16 12:00 (Tylenol) 650 mg UNSCH PRN PO 12/20/16 12:00 (Benadryl) 25 mg UNSCH PRN PO 12/20/16 12:00 (Nitrostat Sl) 0.4 mg UNSCH PRN SL 12/20/16 12:00 (Catapres) 0.1 mg UNSCH PRN PO 12/20/16 12:00 (Epogen Inj) 6,000 units UNSCH PRN IV 12/20/16 12:00 12/25/16 11:16 (Gelfoam 12 Mm/7 Mm Top) 1 foam UNSCH PRN TOP 12/20/16 12:00 (Proair Hfa Inh) 2 puff Q6H PRN INH 12/20/16 18:00 (Cordarone) 200 mg DAILY PO 12/21/16 09:00 12/27/16 08:49 (Lipitor) 40 mg HS PO 12/20/16 21:00 12/26/16 20:54 (Synthroid) 125 mcg DAILY PO 12/21/16 09:00 12/27/16 08:49 (Claritin) 5 mg BID PO 12/20/16 21:00 12/27/16 08:49 (Cozaar) 25 mg DAILY PO 12/21/16 09:00 Hold 12/21/16 08:40 (Melatonin) 5 mg HS PO 12/20/16 21:00 12/26/16 20:55 (Requip) 0.25 mg HS PO 12/20/16 21:00 12/26/16 20:55 (Senokot) 17.2 mg HS PO 12/20/16 21:00 12/26/16 20:55 (Flomax) 0.4 mg HS PO 12/20/16 21:00 12/26/16 20:55 Patient Own Medication PT OWN MED:(Fluorouracil Topical (Efu... BID TOPICAL 12/20/16 21:00 Hold (Lactinex) 1 tab DAILY PO 12/21/16 09:00 12/27/16 08:48 (Lactulose Liq) 30 ml Q6HR PRN PO 12/20/16 18:00 Patient Own Medication PT OWN MED:(Mometasone-Formoterol... BID INH 12/20/16 21:00 Hold (Roxicodone) 5 mg Q4H PRN PO 12/20/16 18:00 12/25/16 16:09 (Pepcid) 20 mg DAILY PO 12/21/16 09:00 12/27/16 08:49 (Miralax) 17 gm DAILY PRN PO 12/21/16 09:15 12/26/16 16:14 (Dulcolax Supp) 10 mg DAILY PRN RECTAL 12/21/16 09:15 (Proamatine) 5 mg TID@,,17 PO 12/22/16 07:00 12/27/16 06:00 (Renvela) 800 mg TID PO 12/24/16 13:00 Hold 12/25/16 14:41 (Lasix) 40 mg BID PO 12/27/16 21:00 A/P Problem List: (1) Symptomatic bradycardia ICD Code: R00.1 Status: Acute (2) First degree AV block ICD Code: I44.0 Status: Acute (3) CHF (congestive heart failure) ICD Code: I50.9 Status: Chronic (4) Acute on chronic kidney failure ICD Code: N17.9 Status: Acute (5) Hypothyroidism ICD Code: E03.9 Status: Chronic (6) Hypertension ICD Code: I10 Status: Chronic (7) Compression fracture of L4 lumbar vertebra ICD Code: S32.040A Status: Acute Assessment and Plan 86-year-old male with: Symptomatic Dizziness/ bradycardia/ hypotension The pt's heart rate was in the 40s during his episode of dizziness. He was on amiodarone and Coreg. EKG with 1st degree AVB and conduction delay. EKG 12/21 with NSR. Trops flat. - holding Coreg, continued amiodarone. - telemetry. - cardiology consult if recurs however no recurrence of symptoms or bradycardia - midodrine added with good effect on BP. - resolved Atrial fibrillation On amiodarone, Coreg, and Eliquis upon arrival - Coreg discontinued as above - monitor on telemetry. - continue anticoagulation with Eliquis post procedure L4 fracture The pt was supposed to follow up with Dr. Wynn. Orthopedic surgery consulted and recommended NS or IR consult for kyphoplasty if needed. - pain control with a bowel regimen. - PT/ OT. Patient and family declines SNF/[facility]. - IR consulted for kyphoplasty, done on 12/26/16 - patient tolerated kyphoplasty well, minimal to no pain post procedure, ambulating without difficulty - resume Pletal and Eliquis post procedure ESRD On dialysis. Nephrology consult appreciated. - continue dialysis per nephrology. - continue diuresis. - follow BMP and avoid nephrotoxic agents. Constipation The patient reports severe constipation. - Extensive bowel regimen ordered. Resolved. Chronic diastolic CHF Previous echo with EF 50%. Pt appears euvolemic. CXR with increased vascularity , no edema. - continue volume management with dialysis. - continue cardiac regimen. - Continue outpatient cardiology follow-up - continue lasix 40mg bid Urinary Frequency: -urinalysis unremarkable -likely temporary secondary to diuresis vs anesthesia effects, also reporting significant dry mouth, decreased Lasix from 80mg bid to 40mg bid PPx: Continue Eliquis. SCDs. Written by Ana Rosa Tate, acting as scribe for Dr. Ronquillo on 12/27/16 at 09:30. The documentation accurately reflects the work performed [id number] by me on at 09:30 Discharge Planning Discharge today after dialysis. See discharge summary. Problem Qualifiers (1) CHF (congestive heart failure): Qualified Code: I50.32 - Chronic diastolic congestive heart failure (2) Hypothyroidism: Qualified Code: E03.9 - Hypothyroidism, unspecified type (3) Hypertension: Qualified Code: I10 - Essential hypertension (4) Compression fracture of L4 lumbar vertebra: Qualified Code: S32.040A - Compression fracture of L4 lumbar vertebra, closed, initial encounter Ana Rosa Tate PA-C Dec 27, 2016 09:32 Li Ronquillo DO Dec 27, 2016 21:01
[2016-12-27] MEDS: DOCUSATE SODIUM 100 MG CAP PO SCH ×2 (12:00)
[2016-12-27 12:31] VITALS: BP 130/60; PULSE 60; RESP 18; O2SAT 95
[2016-12-27 12:56] LABS: BLOOD, URINE NEG (NEG); GLUCOSE,URINE NEG (NEG); KETONE, URINE NEG (NEG); NITRITE,URINE NEG (NEG); PH, URINE 7.5 (5.0-8.5); SQUAMOUS EPITHELIAL CELL URINE <1 /hpf (0-5); URINE COLOR YELLOW (YELLW/STRAW)
[2016-12-27 13:01] LABS: COMMENT (UR) CULT NOT INDICATED; CULTURE IF INDICATED CULT NOT INDICATED
[2016-12-27] MEDS ORDERED: FURO40TA PO (13:41)
[2016-12-27] MEDS ORDERED: MIDO5TAB PO (13:41)
--- NOTE | 2016-12-27 13:42 | HHI.DCPOC ---
Discharge Care Plan Diagnosis: (1) Dizziness (2) Hypotension (3) Symptomatic bradycardia (4) CHF (congestive heart failure) (5) ESRD (end stage renal disease) (6) Compression fracture of L4 lumbar vertebra (7) Status post kyphoplasty Goals to Promote Your Health * To prevent worsening of your condition and complications * To maintain your health at the optimal level Directions to Meet Your Goals Take your medications as prescribed Follow your dietary instruction Follow activity as directed Keep your appointments as scheduled Take your immunizations and boosters as scheduled If your symptoms worsen call your PCP, if no PCP go to Urgent Care Center or Emergency Room Smoking is Dangerous to Your Health. Avoid second hand smoke Call the 24-hour hour crisis hotline for domestic abuse at Ana Rosa Tate PA-C Dec 27, 2016 13:42 Li Ronquillo DO Dec 27, 2016 21:01
--- NOTE | 2016-12-27 13:46 | HHI.DS ---
cc: Myla Upton MD Discharge Summary Admission Date Dec 23, 2016 at 1:42 pm Discharge Date: Dec 27, 2016 Admitting Diagnosis symptomatic bradycardia, ESRD, hemodialysis dependent dizziness (1) Symptomatic bradycardia ICD Code: R00.1 Diagnosis: Principal (2) Hypotension ICD Code: I95.9 Diagnosis: Principal (3) First degree AV block ICD Code: I44.0 Diagnosis: Secondary (4) CHF (congestive heart failure) ICD Code: I50.9 Diagnosis: Secondary (5) Acute on chronic kidney failure ICD Code: N17.9 Diagnosis: Secondary (6) Hypothyroidism ICD Code: E03.9 Diagnosis: Secondary (7) Compression fracture of L4 lumbar vertebra ICD Code: S32.040A Diagnosis: Principal (8) Status post kyphoplasty ICD Code: Z98.890 Diagnosis: Principal Procedures 12/26/16 - kyphoplasty of L4, done by IR Brief History - From Admission The patient is an 86-year-old male with a past medical history of CHF, atrial fibrillation and end-stage renal disease on dialysis is presenting to the hospital after an episode of dizziness. He said he was sitting at a table when all of a sudden he started to feel lightheaded and dizzy. He had no symptoms prior to the episode. He denied any chest pain, shortness of breath, headache, visual changes or strange smells. He said that during the episode he checked his vital signs and his blood pressure was normal but his heart rate was noted to be in the 40s. He was taken to the hospital for further evaluation where an EKG was done which showed first degree AV block. The patient has had episodes of hypotension at home and his primary care doctor held a couple of his blood pressure medications including Coreg but resumed it when his blood pressure returned to elevated levels during dialysis. The patient also complains of 10 out of 10 pain in his lower back. He said recently he has sustained a compression fracture which was verified by imaging and he was waiting to be seen by Dr. Wynn of orthopedic surgery. He says when he does not move his back pain is a 0 out of 10 but it does get to 10 out of 10 severity when he does move. He says he tries to avoid narcotic pain medications because it leads to severe constipation which he has been struggling with. He says he is on a rather extensive bowel regimen. CBC/BMP: 12/26/16 0650 Significant Findings Laboratory Tests Test 12/25/16 12/25/16 12/26/16 12/27/16 05:32 18:57 06:50 12:40 Sodium Level 135 MEQ/L (136-145) Chloride Level 95 MEQ/L 95 MEQ/L (98-107) (98-107) Carbon Dioxide Level 32.5 MEQ/L 33.8 MEQ/L (21.0-32.0) (21.0-32.0) Blood Urea Nitrogen 46 MG/DL (7-18) 37 MG/DL (7-18) Creatinine 4.80 MG/DL 3.71 MG/DL (0.60-1.30) (0.60-1.30) Estimat Glomerular Filtration 12 ML/MIN (>89) 16 ML/MIN (>89) Rate Albumin 2.8 GM/DL 2.9 GM/DL (3.4-5.0) (3.4-5.0) Activated Partial 32.6 SEC Thromboplast Time (24.3-30.1) Calcium Level 10.2 MG/DL (8.5-10.1) Urine Protein 30 mg/dL (NEG-TRACE) Imaging Last Impressions Vertebroplasty 12/26/16 0000 Signed Impressions: Service Date/Time: Monday, December 26, 2016 11:40 - CONCLUSION: Uncomplicated kyphoplasty as above. Tyler Asher MD Head CT 12/20/16940 Signed Impressions: Service Date/Time: Tuesday, December 20, 2016 10:08 - CONCLUSION: No acute intracranial disease. Nonspecific white matter changes. Kash Howard MD Chest X-Ray 12/20/16940 Signed Impressions: Service Date/Time: Tuesday, December 20, 2016 10:01 - CONCLUSION: 1. Cardiomegaly and increased pulmonary vascularity. No pulmonary edema. 2. Left-sided jugular vascular catheter. Kash Howard MD Lumbar Spine X-Ray 12/20/16 0000 Signed Impressions: Service Date/Time: Tuesday, December 20, 2016 19:26 - CONCLUSION: 1. Moderate compression fracture of L4 of unknown age. Osteopenia. Miles Wheeler MD PE at Discharge GENERAL: Well-nourished, well-developed pleasant elderly male patient in [place]. SKIN: Warm and dry. No rash. HEENT: Normocephalic. Atraumatic. Pupils equal and round. No scleral icterus. No injection or drainage. Mucous membranes pink and moist. NECK: Supple. Trachea midline. CARDIOVASCULAR: Regular rate and rhythm. S1, S2 noted. 3/6 systolic murmur noted. RESPIRATORY: No accessory muscle use. Clear to auscultation. Breath sounds equal bilaterally. GASTROINTESTINAL: Abdomen soft, non-tender, nondistended. Normoactive bowel sounds x4. MUSCULOSKELETAL: No obvious deformities. Extremities without clubbing, cyanosis , or edema. NEUROLOGICAL: Awake and alert. No obvious cranial nerve deficits. Motor grossly within normal limits. Normal speech. PSYCHIATRIC: Appropriate mood and affect; insight and judgment normal. Hospital Course 86-year-old male with: Symptomatic Dizziness/ bradycardia/ hypotension The pt's heart rate was in the 40s during his episode of dizziness. He was on amiodarone and Coreg. EKG with 1st degree AVB and conduction delay. EKG 12/21 with NSR. Trops flat. - holding Coreg, continued amiodarone. - telemetry. - cardiology consult if recurs however no recurrence of symptoms or bradycardia - midodrine added with good effect on BP. - resolved Atrial fibrillation On amiodarone, Coreg, and Eliquis upon arrival - Coreg discontinued as above - monitor on telemetry. - continue anticoagulation with Eliquis post procedure L4 fracture The pt was supposed to follow up with Dr. Wynn. Orthopedic surgery consulted and recommended NS or IR consult for kyphoplasty if needed. - pain control with a bowel regimen. - PT/ OT. Patient and family declines SNF/[facility]. - IR consulted for kyphoplasty, done on 12/26/16 - patient tolerated kyphoplasty well, minimal to no pain post procedure, ambulating without difficulty - resume Pletal and Eliquis post procedure ESRD On dialysis. Nephrology consult appreciated. - continue dialysis per nephrology. - continue diuresis. - follow BMP and avoid nephrotoxic agents. Constipation The patient reports severe constipation. - Extensive bowel regimen ordered. Resolved. Chronic diastolic CHF Previous echo with EF 50%. Pt appears euvolemic. CXR with increased vascularity , no edema. - continue volume management with dialysis. - continue cardiac regimen. - Continue outpatient cardiology follow-up - continue lasix 40mg bid Urinary Frequency: -urinalysis unremarkable -likely temporary secondary to diuresis vs anesthesia effects, also reporting significant dry mouth, decreased Lasix from 80mg bid to 40mg bid PPx: Continue Eliquis. SCDs. Written by Ana Rosa Tate, acting as scribe for Dr. Ronquillo on 12/27/16 at 09:30. The documentation accurately reflects the work performed [id number] by me on at 09:30. Discharge Planning Discharge today after dialysis. Pt Condition on Discharge: Stable Discharge Disposition: Discharge Home Discharge Time: > 30 minutes Discharge Instructions DIET: Follow Instructions for: Renal Failure Diet Activities you can perform: Regular-No Restrictions Follow up Referrals: Orthopedics - 1 Week [facility] PCP Follow-up - 1 Week with Myla Upton MD New Medications: Midodrine (Midodrine) 5 Mg Tab 5 MG PO TID@,12,17 low blood pressure #90 TAB Changed Medications: Furosemide (Furosemide) 40 Mg Tab 40 MG PO BID CHF #60 Ref 0 TAB (Changed from: Furosemide 80 Mg Tab 80 Mg PO BID #30 TAB Ref 0) Continued Medications: Albuterol 18 GM Inh (Ventolin Hfa 18 GM Inh) 90 Mcg/Act Aer 2 PUFF INH Q6H PRN SHORTNESS OF BREATH #1 Ref 0 INHALER Amiodarone (Amiodarone) 200 Mg Tab 200 MG PO DAILY Regulate Heart Beat #30 Ref 0 TAB Apixaban (Eliquis) 5 Mg Tab 5 MG PO DAILY Blood Clot Prevention #60 Ref 0 TAB Atorvastatin (Lipitor) 40 Mg Tab 40 MG PO HS Cholesterol Management #30 Ref 0 TAB B-Complex W/ C & Folic Acid (Socorro-Galo Rx) 1 Tab 1 TAB PO DAILY Nutritional Supplement #30 Ref 0 TAB Cilostazol (Cilostazol) 50 Mg Tab 50 MG PO BID INTERMITTENT CLAUDICATION Ref 0 TAB Docusate Sodium (Docusate Sodium) 100 Mg Cap 100 MG PO BID Prevent Constipation #60 Ref 0 CAP Fluorouracil Topical (Efudex Topical) 5 % Cream 1 APPLIC TOPICAL BID Chemotherapy Management #40 Ref 0 GM Lactobacillus Rhamnosus (GG) (Culturelle) 10 B Cell Cap 50 MG PO DAILY Nutritional Supplement Ref 0 CAP Lactulose (Encephalopathy) Liq (Enulose Liq) 10 Gm/15 Ml Soln 30 ML PO Q6HR PRN CONSTIPATION Levothyroxine (Levothyroxine) 88 Mcg Tab 125 MCG PO DAILY Thyroid #30 Ref 0 TAB Loratadine (Claritin) 10 Mg Cap 5 MG PO BID Allergy Management Ref 0 CAP Losartan (Losartan) 25 Mg Tab 25 MG PO DAILY Blood Pressure Management #30 Ref 0 TAB Melatonin (Melatonin) 5 Mg Tab 3 MG PO HS Provide Good Sleep Ref 0 TAB Mometasone-Formoterol 120 Act Inh (Dulera 120 Act Inh) 200-5 Mcg/Act Inh 2 PUFF INH BID Asthma Management #1 Ref 0 INHALER Polyethylene Glycol 3350 Powder (Miralax Powder) 17 Gm Powd 17 GM PO DAILY Mix and dissolve one measuring cap-ful (17 grams) in water or juice. Constipation #1 Ref 0 BOTTLE Ranitidine (Zantac) 150 Mg Tab 150 MG PO DAILY Reduce Stomach Acid #30 Ref 0 TAB Ropinirole (Ropinirole) 0.25 Mg Tab 0.25 MG PO HS #30 Ref 0 TAB Sennosides (Sennosides) 8.6 Mg Tab 17.2 MG PO HS Constipation Ref 0 TAB Sevelamer Carbonate (Renvela) 800 Mg Tab 1600 MG PO TID Control phosphorous levels #180 Ref 0 TAB Tamsulosin (Tamsulosin) 0.4 Mg Cap 0.4 MG PO HS Manage Prostate Problems #30 Ref 0 CAP Tramadol (Tramadol) 50 Mg Tab 50 MG PO Q4H PRN PAIN Ref 0 TAB Discontinued Medications: Amlodipine (Amlodipine) 10 Mg Tab 5 MG PO DAILY Blood Pressure Management #30 Ref 0 TAB Carvedilol (Coreg) 12.5 Mg Tab 12.5 MG PO BID #60 Ref 0 TAB Ana Rosa Tate PA-C Dec 27, 2016 13:46 Li Ronquillo DO Dec 27, 2016 21:02
--- NOTE | 2016-12-27 15:10 | HHI.NPPN ---
Subjective General Problems: Anemia, Hypotension Renal Failure: Chronic, End Stage Renal Disease Review of Systems General Constitutional: Fatigue Respiratory Lungs: SOB Cardiovascular Cardiac: [id number] Musculoskeletal MS: Pain/Stiffness MS Remarks back pain Objective Data Data 12/26/16 12/27/16 19:00 07:00 Intake Total 10 ml Output Total 200 ml Balance -190 ml Intake Oral 10 ml Output Urine Total 200 ml Vital Signs Date Time Temp Pulse Resp B/P Pulse Ox O2 Delivery O2 Flow Rate FiO2 12/27/16 12:31 60 18 130/60 95 12/27/16 09:22 97.8 62 18 120/60 93 12/27/16 09:17 68 12/27/16 04:22 98.2 67 19 120/58 95 12/26/16 23:51 98.2 65 20 118/57 95 12/26/16 20:00 68 12/26/16 19:31 98.2 70 19 117/51 95 12/26/16 15:55 97.8 70 18 175/80 95 -: 12/26/16 0650 Tubes & Lines: Perma-Cath Physical Exam General Appearance: Well Developed, Well Nourished, No Acute Distress, Comfortable Eyes Eye Exam: Pupils Equal Throat Throat Exam: Oral Mucosa Eland & Moist Neck Neck Exam: Neck Supple, Trachea Midline Pulmonary Resp Exam: Clear Bilaterally, Breath Sounds Equal, No Distress Cardiology CV Exam: Good Perfusion, Irregular, Arrhythmia Gastrointestinal/Abdomen GI Exam: Soft, Non-Tender, Bowel Sounds Present Musculoskeletal MS Exam: Joints Intact, Normal Tone Integumentary Skin Exam: Warm, Dry, Intact Extremeties Extremities Exam: No Edema, Pedal Pulses Palpable Neurologic Neuro Exam: Alert, Awake, Oriented, Speech Clear, Moving All Extremities Psychiatric Psych Exam: Appropriate Responses Assessment/Plan Discussed Condition With: Patient Assessment Summary: Anemia of CKD, Hypertension, End Stage Renal Disease Problem List: (1) ESRD (end stage renal disease) Plan: Maintain T-Th-Thu dialysis schedule, he is seen during HD 2 liter UF Today renal panel unremarkable no IVF required he does have left AVF that he had ligated but apparently it was used very recently and is still functional New AVF in the right arm has not matured as well as one would hope, discussed with Dr. Rudolph, awaiting evaluation He can be dc fu Dr. Hall (2) Compression fracture of L4 lumbar vertebra Plan: to have kyphoplasty today by IR he has LSO brace to use, prn pain medications Eliquis on hold since Thursday for upcoming procedure discussed fall precautions (3) CHF (congestive heart failure) Plan: fluid volume status acceptable adjust UF as needed avoid IVF he is on lasix 80 BID per home med list (4) Symptomatic bradycardia Plan: thought to be due to coreg and amiodarone use, coreg has been stopped heart rate has improved , monitor (5) Dizziness Plan: related to bradycardia, improved (6) Anemia Plan: epogen with dialysis (7) Metabolic bone disease Plan: phosphorus level borderline low, hold Renvela resume when appropriate (8) Hypotension Plan: previously hypertensive, he was on losartan and coreg to control rate BP has improved/stabilized on TID midodrine, ARB on hold continue and monitor blood pressures Problem Qualifiers (1) Compression fracture of L4 lumbar vertebra: Qualified Code: S32.040A - Compression fracture of L4 lumbar vertebra, closed, initial encounter (2) CHF (congestive heart failure): Qualified Code: I50.32 - Chronic diastolic congestive heart failure Cordelia Coe MD Dec 27, 2016 15:10
[2016-12-27] MEDS ORDERED: BISA10R RECTAL (16:51)
[2016-12-27] MEDS ORDERED: FUROSEMIDE 40 MG TAB PO SCH (21:00)
== END 2016-12-27 17:31 | disposition home or self-care (01) | DRG 981 ==
LOC: NEPE 09:11 → NEDA 11:56 → NEPGCP 15:32 → OBSVTOIN 12-23 13:42
PROVIDERS: ADMIT Hospitalist; ATTEND Hospitalist
PROC: 5A1D00Z (ICD-10-PCS; 2016-12-23)
PROC: 5A1D00Z (ICD-10-PCS; 2016-12-25)
PROC: 0QS03ZZ Reposition Lumbar Vertebra, Percutaneous Approach (ICD-10-PCS; principal; 2016-12-26)
PROC: 0QU03JZ Supplement Lumbar Vertebra with Synthetic Substitute, Percutaneous Approach (ICD-10-PCS; 2016-12-26)
PROC: 5A1D00Z (ICD-10-PCS; 2016-12-27)
DX: I50.32 Chronic diastolic (congestive) heart failure (principal); N18.6 End stage renal disease; N17.9 Acute kidney failure, unspecified; I95.3 Hypotension of hemodialysis; M48.56XA Collapsed vertebra, not elsewhere classified, lumbar region, initial encounter for fracture; I12.0 Hypertensive chronic kidney disease with stage 5 chronic kidney disease or end stage renal disease; I48.91 Unspecified atrial fibrillation; R00.1 Bradycardia, unspecified; I25.2 Old myocardial infarction; M54.5 Low back pain; Z85.820 Personal history of malignant melanoma of skin; E78.00 Pure hypercholesterolemia, unspecified; Z86.73 Personal history of transient ischemic attack (TIA), and cerebral infarction without residual deficits; K21.9 Gastro-esophageal reflux disease without esophagitis; M10.9 Gout, unspecified; N40.0 Benign prostatic hyperplasia without lower urinary tract symptoms; E07.9 Disorder of thyroid, unspecified; Z99.2 Dependence on renal dialysis; I44.0 Atrioventricular block, first degree; E03.9 Hypothyroidism, unspecified; K59.00 Constipation, unspecified; R35.0 Frequency of micturition; I73.9 Peripheral vascular disease, unspecified; M75.00 Adhesive capsulitis of unspecified shoulder; E78.5 Hyperlipidemia, unspecified; Z85.46 Personal history of malignant neoplasm of prostate; Z87.891 Personal history of nicotine dependence; G47.30 Sleep apnea, unspecified
CPT/HCPCS: 22514; 70450; 71010; 72100; 80048; 80053; 80069; 81001; 82550; 83735; 84100; 84484; 85025; 85610; 85730; 90935; 93005; 96368; 96374; 96375; G0257; G0378; G8987-GO; G8987-GP; G8988-GO; G8988-GP; J1580; J1644; J2250; J2765; J3010; J7030; L0484; P9047; Q4081

== ENCOUNTER 2017-01-21 07:39 | Day surgery (SDC) | payer MEDICARE ==
[~2017-01-21] VITALS: Ht 177.8 cm; Wt 57.7 kg
[~2017-01-21 07:39] MED LIST changes: -AMLO10TA2 PO; +BISA10R RECTAL; -CARV12.5 PO; +FURO40TA PO; -FURO80TA PO; +MIDO5TAB PO
[2017-01-21 07:59] VITALS: BP 188/74; PULSE 85; RESP 20; TEMP 97.6; O2SAT 96
[2017-01-21] MEDS ORDERED: SODIUM CHLORID 0.9% 500 ML IV SCH (08:15)
[2017-01-21] MEDS ORDERED: LACTATED RINGER'S 1000 ML IV SCH (08:15)
[2017-01-21] MEDS ORDERED: INSULIN HUMAN REGULAR 1,000 UNITS/10 ML VIAL SQ PRN (08:15)
[2017-01-21] MEDS ORDERED: SODIUM CHLOR 0.9% 1000 ML INJ 1,000 ML IV SCH (08:15)
[2017-01-21] MEDS ORDERED: METOPROLOL TARTRATE 25 MG TAB PO PRN (08:15)
[2017-01-21 08:44] LABS: AUTOMATED NEUTROPHIL # 4.1 TH/MM3 (1.8-7.7); BASOPHIL % 0.7 % (0.0-2.0); EOSINOPHIL % 0.4 % (0.0-4.0); HEMATOCRIT 33.3 % (39.0-51.0); HEMO FLAGS DIFF FINAL; LYMPH % 10.8 % (9.0-44.0); LYMPHOCYTE # 0.6 TH/MM3 (1.0-4.8); MEAN CELL VOLUME 97.8 FL (80.0-100.0); MEAN CORPUSCULAR HEMOGLOBIN 32.4 PG (27.0-34.0); MEAN CORPUSCULAR HGB CONC 33.1 % (32.0-36.0); MONO % 14.9 % (0.0-8.0); NEUT % 73.2 % (16.0-70.0); PLATELET COUNT 227 TH/MM3 (150-450); RED BLOOD COUNT 3.41 MIL/MM3 (4.50-5.90); RED CELL DISTRIBUTION WIDTH 17.5 % (11.6-17.2); WHITE BLOOD COUNT 5.7 TH/MM3 (4.0-11.0)
[2017-01-21] MEDS ORDERED: LEVOFLOXACIN 500 MG PREMIX INJ 100 ML IV ONE (08:45)
[2017-01-21 09:08] LABS: BICARBONATE 26.8 MEQ/L (21.0-32.0); POTASSIUM 4.6 MEQ/L (3.5-5.1)
[2017-01-21 10:14] LABS: APTT (PATIENT) 30.9 SEC (24.3-30.1); PROTHROMBIN TIME - PATIENT 10.7 SEC (9.8-11.6)
== END 2017-01-21 11:00 | disposition home or self-care (01) ==
LOC: HROP 07:39 → HRIP 07:40 → HROP 11:00
PROVIDERS: ATTEND Family Medicine
DX: M48.56XA Collapsed vertebra, not elsewhere classified, lumbar region, initial encounter for fracture (principal); I48.91 Unspecified atrial fibrillation; I10 Essential (primary) hypertension; Z53.09 Procedure and treatment not carried out because of other contraindication; Z79.01 Long term (current) use of anticoagulants
CPT/HCPCS: 80048; 85025; 85610; 85730; G0463; 99211

== ENCOUNTER 2017-01-26 07:32 | Day surgery (SDC) | payer MEDICARE ==
[~2017-01-26] VITALS: Ht 177.8 cm; Wt 75.0 kg
[~2017-01-26 07:32] MED LIST changes: +PROPOFOL 200 MG/20 ML AMP IV ONE
[2017-01-26] MEDS ORDERED: AMIT24CA5 PO (08:10)
[2017-01-26] MEDS ORDERED: OXYC1CAP PO (08:10)
[2017-01-26] MEDS ORDERED: INSULIN HUMAN REGULAR 1,000 UNITS/10 ML VIAL SQ PRN (08:45)
[2017-01-26] MEDS ORDERED: METOPROLOL TARTRATE 25 MG TAB PO PRN (08:45)
[2017-01-26] MEDS ORDERED: LACTATED RINGER'S 1000 ML IV SCH (09:00)
[2017-01-26] MEDS ORDERED: SODIUM CHLORID 0.9% 500 ML IV SCH (09:00)
[2017-01-26 09:30] LABS: BICARBONATE 29.3 MEQ/L (21.0-32.0); POTASSIUM 4.2 MEQ/L (3.5-5.1)
[2017-01-26] MEDS ORDERED: SODIUM CHLOR 0.9% 1000 ML INJ 1,000 ML IV SCH (10:00)
[2017-01-26] MEDS ORDERED: LEVOFLOXACIN 500 MG PREMIX INJ 100 ML IV ONE (11:23)
--- NOTE | 2017-01-26 11:50 | PD.RAD ---
Post Procedure Progress Note Pre Procedure Diagnosis: (1) Lumbar vertebral fracture Post Procedure Diagnosis: (1) Lumbar vertebral fracture Procedure Date: Jan 26, 2017 Supervising Radiologist: Tyler Asher Anesthesia: General, MAC, Local Plan of Activity Patient to Unit: ROPU Patient Condition: Good Additional Comments: Successful Kyphoplasty at L5. Unipedicular approach from the right Full dictated report to follow See PACS Report for procedural detail/treatment Tyler Asher MD Jan 26, 2017 11:50
[2017-01-26 11:55] VITALS: BP 156/78; PULSE 69; RESP 20; TEMP 97.5; O2SAT 99
[2017-01-26] MEDS ORDERED: MIDAZOLAM HCL 2 MG/2 ML VIAL ONE (12:07)
[2017-01-26] MEDS ORDERED: KETAMINE HCL 500 MG/5 ML VIAL ONE (12:07)
[2017-01-26 12:15] VITALS: BP 145/74; PULSE 65; RESP 20; O2SAT 98
[2017-01-26 12:30] VITALS: BP 146/76; PULSE 65; RESP 20; O2SAT 99
[2017-01-26 12:45] VITALS: BP 159/71; PULSE 65; RESP 20; O2SAT 97
[2017-01-26 13:15] VITALS: BP 140/76; PULSE 64; RESP 20; O2SAT 98
[2017-01-26 13:45] VITALS: BP 158/75; PULSE 63; RESP 20; O2SAT 95
--- NOTE | 2017-01-26 16:36 | RADRPT ---
EXAM DATE/TIME: 01/26/2017 09:39 [facility] COMPARISON: KYPHOPLASTY, FLUORO GUIDED, December 26, 2016, 11:40. INDICATIONS : Patient with a compression fracture of L5 in need of kyphoplasty. MEDICAL HISTORY : History of NM, CHF, AFIB, ESRD, BPH, CVA, TIA, PVD, COPD, hyperlipidemia, gerd, gout, sleep apnea, h ypopthyroidism, anemia, melanoma, prostate cancer. SURGICAL HISTORY : History of bilatetral carotid endarterectomy, cardiac stent placement, AAA stent placement, prostate seed placement, bilateral AVF, right rotator cuff surgery, right finger resection, aortic bi-femoral bypass, inguinal hernia repair, tonsillectomy, adenoidectomy, cataract removal. ENCOUNTER: Subsequent ACUITY: 3 weeks PAIN SCORE: 0/10 FLUORO TIME: 16.0 minutes IMAGE SERIES: 0 LEVEL: L5 Intra-procedural antibiotics were given as prescribed above. DEVICE: 1. 2 cc AVAMax bone cement Anesthesia and pain control was provided by the Anesthesia department. PROCEDURE : 1. Fluoroscopically-guided kyphoplasty. 2. Conscious sedation with continuous EKG and oximetry monitoring. The risks, benefits and alternatives to the procedure were explained and verbal and written consent w as obtained. The site was prepped in sterile fashion. Full sterile technique was used, including ca p, mask, sterile gloves and gown and a large sterile sheet. Hand hygiene and 2% chlorhexidine and/or betadine/alcohol prep was utilized per protocol for cutaneous antisepsis. The skin and subcutaneous tissues were infiltrated with local anesthetic solution. With fluoroscopic guidance the trocar was advanced through the right pedicle of L5 into the vertebral body. A curved needle was inserted through the trocar with cavity creation in the vertebral body. Ky phoplasty was performed. The prescribed cement volume was placed. Post procedure images demonstrate excellent spread of cement across vertebral body. Sedation was provided by the anesthesiology service. The patient tolerated the procedure well and there were no complications. The patient was sent to [facility] anesthesia recovery in stable condition. CONCLUSION: Uncomplicated kyphoplasty as above. Tyler Asher MD on January 26, 2017 at 16:31 Board Certified Radiologist. This report was verified electronically.
== END 2017-01-26 14:25 | disposition home or self-care (01) ==
LOC: HROP 07:32 → HRIP 07:37 → HROP 14:25
PROVIDERS: ATTEND Family Medicine
DX: S32.050A Wedge compression fracture of fifth lumbar vertebra, initial encounter for closed fracture (principal); I12.0 Hypertensive chronic kidney disease with stage 5 chronic kidney disease or end stage renal disease; N18.6 End stage renal disease; I48.91 Unspecified atrial fibrillation; I50.9 Heart failure, unspecified; Z79.01 Long term (current) use of anticoagulants
CPT/HCPCS: 22514; 80048; J1956; J2250; J3010; J7030

== ENCOUNTER 2017-07-27 19:09 | Observation (INO) | payer MEDICARE ==
[~2017-07-27] VITALS: Ht 177.8 cm; Wt 70.0 kg
[2017-07-27] VITALS (8 sets, daily range): BP systolic 114–149; BP diastolic 56–67; PULSE 61–67; RESP 18–20; TEMP 98–98.1; O2SAT 97–100
[~2017-07-27 19:09] MED LIST changes: +AMIT24CA5 PO; -BISA10R RECTAL; -LOSA25TA PO; +OXYC1CAP PO; -PROPOFOL 200 MG/20 ML AMP IV ONE; -TRAM50TA PO; -[UNRECOGNIZED DRUG - CODE] TOPICAL
[2017-07-27] MEDS ORDERED: SODIUM CHLORIDE 0.9% FLUSH 10 ML FLUSH IVF PRN (19:30)
[2017-07-27] MEDS ORDERED: ZALE5CAP PO (19:47)
[2017-07-27] MEDS: NITROGLYCERIN 0.4 MG SL 25 TABS/BTL SL SCH ×2 (19:51→20:39)
--- NOTE | 2017-07-27 19:52 | RADRPT ---
EXAM DATE/TIME: 07/27/2017 19:28 [facility] COMPARISON: CHEST SINGLE AP, December 20, 2016, 10:01. INDICATIONS : Chest pain. MEDICAL HISTORY : Chronic obstructive pulmonary disease. SURGICAL HISTORY : None. ENCOUNTER: Initial ACUITY: 1 day PAIN SCORE: 3/10 LOCATION: Bilateral chest FINDINGS: The heart is enlarged. Bibasilar streakiness is noted consistent with atelectasis and/or scarring. N o focal alveolar consolidation or pulmonary edema is noted. CONCLUSION: 1. Cardiomegaly. 2. Bibasilar atelectasis and/or fibrotic scarring. 3. No focal alveolar consolidation or pulmonary edema. Nakul Byrd MD on July 27, 2017 at 19:48 Board Certified Radiologist. This report was verified electronically.
--- NOTE | 2017-07-27 20:03 | PD ---
HPI Chief Complaint: Chest Pain Time Seen by Provider: 19:17 Travel History International Travel<30 days: No Contact w/Intl Traveler<30days: No Traveled to known affect area: No History of Present Illness HPI Patient is an 87-year-old male with history of ischemic heart disease, CHF, atrial fibrillation, hyperlipidemia, hypertension tension, hypothyroidism, peripheral vascular disease, chronic anemia, end-stage renal disease on hemodialysis every Tuesdays, and Saturdays, presents to emergency room with complaints of chest pain. Patient reports that chest began after lunchtime today, reports that he initially thought that the chest pain was indigestion. Reports that chest pain is located in his right chest, reports that he feels a "pressure" to his chest with associated nausea with no vomiting. Patient denies any shortness of breath or diaphoresis with his chest pain. Patient reports that he was given was given 1 nitroglycerin by EMS - reports that this brought his chest pain down from "4" to a "3". Patient reports that he still has chest pain at this time. Patient does see Dr. Benavidez in the office [facility] Past Medical History Hx Anticoagulant Therapy: Yes (eliquis ) Arthritis: Yes Asthma: No Atrial Fibrillation: Yes Autoimmune Disease: No Anxiety: No Depression: No Heart Rhythm Problems: Yes (a fib) Cancer: Yes (PROSTATE, MELANOMA-back, face ) Cardiac Catheterization: Yes Cardiovascular Problems: Yes (STENTS, POSSIBLE ND, ) High Cholesterol: Yes Chemotherapy: Yes (x 1 treatment ) Chest Pain: No Congestive Heart Failure: Yes COPD: Yes Cerebrovascular Accident: Yes (TIA) Diabetes: No Diminished Hearing: No Endocrine: Yes Gastrointestinal Disorders: Yes (GERD) GERD: Yes Gout: Yes Genitourinary: Yes (BPH) Hepatitis: No Hiatal Hernia: No Hypertension: Yes Immune Disorder: No Implanted Vascular Access Dvce: Yes Musculoskeletal: Yes (ARTHRITIS) Neurologic: Yes (TIA-2013) Psychiatric: No Reproductive: No Respiratory: Yes (COPD) Immunizations Current: Yes Migraines: No Radiation Therapy: Yes (seed implant ) Seizures: No Sleep Apnea: Yes (BIPAP) Thyroid Disease: Yes (recently dx) Ulcer: No Past Surgical History Abdominal Surgery: Yes (ING. HERNIA REP., AAA STENT) AICD: No Arteriovenous Shunt: No Body Medical Devices: AAA STENT, metal pins in fingers Cardiac Surgery: Yes Ear Surgery: No Endocrine Surgery: No Eye Surgery: Yes (RIGHT CATARACT EXTRACT.) Genitourinary Surgery: Yes (CIRCUMCISION, PROSTATE SEEDING) Gynecologic Surgery: No Insulin Pump: No Joint Replacement: Yes (FINGERS) Neurologic Surgery: Yes (BILATERAL CAROTID ENDARTECTOMY) Oral Surgery: Yes (T & A) Pacemaker: No Thoracic Surgery: No Tonsillectomy: Yes Other Surgery: Yes (Tonsilectomy, aortic bypass, cataract ou, ) Social History Alcohol Use: Yes (1-2 glasses of wine a week) Tobacco Use: No (quit 40 years ago) Substance Use: No Allergies-Medications (Allergen,Severity, Reaction): Coded Allergies: nitrofurantoin (Unverified Allergy, Severe, CAUSED "C DIFF" INFECTION, ) penicillin G (Unverified Allergy, Mild, RASH, 07/27/17) vancomycin (Unverified Adverse Reaction, Intermediate, RASH, 07/27/17) Reported Meds & Prescriptions Reported Meds & Active Scripts Active Furosemide 40 Mg Tab 40 Mg PO BID Reported Zaleplon 5 Mg Cap 5 Mg PO HS PRN Melatonin 5 Mg Tab 3 Mg PO HS Renvela (Sevelamer Carbonate) 800 Mg Tab 1,600 Mg PO TID Zantac (Ranitidine HCl) 150 Mg Tab 150 Mg PO DAILY Dulera 120 Act Inh (Mometasone-Formoterol 120 Act Inh) 200-5 Mcg/Act Inh 2 Puff INH BID Culturelle (Lactobacillus Rhamnosus (GG)) 10 B Cell Cap 50 Mg PO DAILY Docusate Sodium 100 Mg Cap 100 Mg PO BID Cilostazol 50 Mg Tab 50 Mg PO BID Lipitor (Atorvastatin Calcium) 40 Mg Tab 40 Mg PO HS Eliquis (Apixaban) 5 Mg Tab 5 Mg PO DAILY Amiodarone (Amiodarone HCl) 200 Mg Tab 200 Mg PO DAILY Ventolin Hfa 18 GM Inh (Albuterol Sulfate) 90 Mcg/Act Aer 2 Puff INH Q6H PRN Enulose Liq (Lactulose (Encephalopathy) Liq) 10 Gm/15 Ml Soln 30 Ml PO Q6HR PRN Levothyroxine (Levothyroxine Sodium) 88 Mcg Tab 125 Mcg PO DAILY Claritin (Loratadine) 10 Mg Cap 5 Mg PO BID [place] Rx (B-Complex W/ C & Folic Acid) 1 Tab 1 Tab PO DAILY Sennosides 8.6 Mg Tab 17.2 Mg PO HS Tamsulosin (Tamsulosin HCl) 0.4 Mg Cap 0.4 Mg PO HS Review of Systems General / Constitutional: No: Fever Eyes: No: Visual changes HENT: No: Headaches Cardiovascular: Positive: Chest Pain or Discomfort, No: Diaphoresis Respiratory: No: Shortness of Breath Gastrointestinal: Positive: Nausea, No: Abdominal Pain Genitourinary: No: Dysuria Musculoskeletal: No: Pain Skin: No Rash Neurologic: No: Weakness Psychiatric: No: Depression Endocrine: No: Polydipsia Hematologic/Lymphatic: No: Easy Bruising Physical Exam Narrative GENERAL: mild distress SKIN: Focused skin assessment warm/dry. HEAD: Atraumatic. Normocephalic. EYES: Pupils equal and round. No scleral icterus. No injection or drainage. ENT: No nasal bleeding or discharge. Mucous membranes pink and moist. NECK: Trachea midline. No JVD. CARDIOVASCULAR: Regular rate and rhythm. +5/6 systolic murmur appreciated. RESPIRATORY: No accessory muscle use. Clear to auscultation. Breath sounds equal bilaterally. GASTROINTESTINAL: Abdomen soft, non-tender, nondistended. Hepatic and splenic margins not palpable. MUSCULOSKELETAL: No obvious deformities. No clubbing. No cyanosis. No edema. NEUROLOGICAL: Awake and alert. No obvious cranial nerve deficits. Motor grossly within normal limits. Normal speech. PSYCHIATRIC: Appropriate mood and affect; insight and judgment normal. Data Data Last Documented VS Vital Signs Date Time Temp Pulse Resp B/P (MAP) Pulse Ox O2 Delivery O2 Flow Rate FiO2 07/27/17 21:37 62 18 114/56 (75) 97 Nasal Cannula 2.00 07/27/17 19:31 98.1 Orders Orders Electrocardiogram (07/27/17 19:) B-Type Natriuretic Peptide (07/27/17 19:26) Ckmb (Isoenzyme) Profile (07/27/17 19:26) Complete Blood Count With Diff (07/27/17 19:) Comprehensive Metabolic Panel (07/27/17 19:26) Magnesium (Mg) (07/27/17 19:26) Prothrombin Time / Inr (Pt) (07/27/17 19:26) Act Partial Throm Time (Ptt) (07/27/17 19:26) Troponin I (07/27/17 19:26) Lipase (07/27/17 19:26) Chest, Single Ap (07/27/17 19:26) Ecg Monitoring (07/27/17 19:26) Iv Access Insert/Monitor (07/27/17 19:26) Oximetry (07/27/17 19:26) Sodium Chloride 0.9% Flush (Ns Flush) (07/27/17 19:30) Nitroglycerin Sl (Nitrostat Sl) (07/27/17 19:30) Morphine Inj (Morphine Inj) (07/27/17 21:15) Admit Order (Ed Use Only) (07/27/17 21:46) Labs Laboratory Tests Test 07/27/17 19:55 White Blood Count 8.8 TH/MM3 Red Blood Count 3.36 MIL/MM3 Hemoglobin 11.2 GM/DL Hematocrit 34.9 % Mean Corpuscular Volume 103.7 FL Mean Corpuscular Hemoglobin 33.2 PG Mean Corpuscular Hemoglobin Concent 32.0 % Red Cell Distribution Width 16.4 % Platelet Count 227 TH/MM3 Mean Platelet Volume 8.8 FL Neutrophils (%) (Auto) 82.6 % Lymphocytes (%) (Auto) 6.3 % Monocytes (%) (Auto) 9.8 % Eosinophils (%) (Auto) 0.7 % Basophils (%) (Auto) 0.6 % Neutrophils # (Auto) 7.3 TH/MM3 Lymphocytes # (Auto) 0.6 TH/MM3 Monocytes # (Auto) 0.9 TH/MM3 Eosinophils # (Auto) 0.1 TH/MM3 Basophils # (Auto) 0.1 TH/MM3 CBC Comment DIFF FINAL Differential Comment Prothrombin Time 12.1 SEC Prothromb Time International Ratio 1.1 RATIO Activated Partial Thromboplast Time 30.0 SEC Blood Urea Nitrogen 63 MG/DL Creatinine 4.97 MG/DL Random Glucose 126 MG/DL Total Protein 6.8 GM/DL Albumin 3.4 GM/DL Calcium Level 8.9 MG/DL Magnesium Level 2.1 MG/DL Alkaline Phosphatase 121 U/L Aspartate Amino Transf (AST/SGOT) 12 U/L Alanine Aminotransferase (ALT/SGPT) 20 U/L Total Bilirubin 0.6 MG/DL Sodium Level 135 MEQ/L Potassium Level 4.6 MEQ/L Chloride Level 99 MEQ/L Carbon Dioxide Level 26.3 MEQ/L Anion Gap 10 MEQ/L Estimat Glomerular Filtration Rate 11 ML/MIN Total Creatine Kinase 32 U/L Troponin I 0.04 NG/ML Lipase 109 U/L MDM Medical Decision Making Medical Screen Exam Complete: Yes Emergency Medical Condition: Yes Interpretation(s) EKG at 192: Normal sinus rhythm at 63 bpm, QT/QTC 51 5/522, nonspecific ST-T wave changes, EKG compared to prior EKG from December 21, 2016 Vital Signs Date Time Temp Pulse Resp B/P (MAP) Pulse Ox O2 Delivery O2 Flow Rate FiO2 07/27/17 19:38 18 98 Nasal Cannula 2.00 07/27/17 19:31 98.1 64 20 149/67 (94) 99 07/27/17 19:31 99 Nasal Cannula 2.00 Differential Diagnosis Differential includes ACS, arrhythmia, electrolyte abnormality Narrative Course Patient is an 87-year-old male who presents to emergency room with complaints of chest pain. He does have significant cardiac disease and does follow with Dr. Reyes in the office. He currently is taking Eliquis as well as amiodarone for management of his atrial fibrillation. Patient was placed on a yard hand upon arrival to the emergency room. Lab work including cardiac enzymes ordered. Several nitroglycerin ordered to SL nitro ordered to see if this helped with his chest pain Vital Signs Date Time Temp Pulse Resp B/P (MAP) Pulse Ox O2 Delivery O2 Flow Rate FiO2 07/27/17 21:37 62 18 114/56 (75) 97 Nasal Cannula 2.00 07/27/17 21:20 62 18 128/60 (82) 98 Nasal Cannula 2.00 07/27/17 20:54 61 18 129/59 (82) 98 Nasal Cannula 2.00 07/27/17 20:31 62 20 142/63 (89) 97 Nasal Cannula 2.00 07/27/17 19:38 18 98 Nasal Cannula 2.00 07/27/17 19:31 98.1 64 20 149/67 (94) 99 07/27/17 19:31 99 Nasal Cannula 2.00 Laboratory Tests Test 07/27/17 19:55 White Blood Count 8.8 TH/MM3 (4.0-11.0) Red Blood Count 3.36 MIL/MM3 (4.50-5.90) Hemoglobin 11.2 GM/DL (13.0-17.0) Hematocrit 34.9 % (39.0-51.0) Mean Corpuscular Volume 103.7 FL (80.0-100.0) Mean Corpuscular Hemoglobin 33.2 PG (27.0-34.0) Mean Corpuscular Hemoglobin Concent 32.0 % (32.0-36.0) Red Cell Distribution Width 16.4 % (11.6-17.2) Platelet Count 227 TH/MM3 (150-450) Mean Platelet Volume 8.8 FL (7.0-11.0) Neutrophils (%) (Auto) 82.6 % (16.0-70.0) Lymphocytes (%) (Auto) 6.3 % (9.0-44.0) Monocytes (%) (Auto) 9.8 % (0.0-8.0) Eosinophils (%) (Auto) 0.7 % (0.0-4.0) Basophils (%) (Auto) 0.6 % (0.0-2.0) Neutrophils # (Auto) 7.3 TH/MM3 (1.8-7.7) Lymphocytes # (Auto) 0.6 TH/MM3 (1.0-4.8) Monocytes # (Auto) 0.9 TH/MM3 (0-0.9) Eosinophils # (Auto) 0.1 TH/MM3 (0-0.4) Basophils # (Auto) 0.1 TH/MM3 (0-0.2) CBC Comment DIFF FINAL Differential Comment Prothrombin Time 12.1 SEC (9.8-11.6) Prothromb Time International Ratio 1.1 RATIO Activated Partial Thromboplast Time 30.0 SEC (24.3-30.1) Blood Urea Nitrogen 63 MG/DL (7-18) Creatinine 4.97 MG/DL (0.60-1.30) Random Glucose 126 MG/DL (74-106) Total Protein 6.8 GM/DL (6.4-8.2) Albumin 3.4 GM/DL (3.4-5.0) Calcium Level 8.9 MG/DL (8.5-10.1) Magnesium Level 2.1 MG/DL (1.5-2.5) Alkaline Phosphatase 121 U/L (45-117) Aspartate Amino Transf (AST/SGOT) 12 U/L (15-37) Alanine Aminotransferase (ALT/SGPT) 20 U/L (12-78) Total Bilirubin 0.6 MG/DL (0.2-1.0) Sodium Level 135 MEQ/L (136-145) Potassium Level 4.6 MEQ/L (3.5-5.1) Chloride Level 99 MEQ/L (98-107) Carbon Dioxide Level 26.3 MEQ/L (21.0-32.0) Anion Gap 10 MEQ/L (5-15) Estimat Glomerular Filtration Rate 11 ML/MIN (>89) Total Creatine Kinase 32 U/L (39-308) Troponin I 0.04 NG/ML (0.02-0.05) Lipase 109 U/L (73-393) Last Impressions Chest X-Ray 07/27/17 1926 Signed Impressions: Service Date/Time: Thursday, July 27, 2017 19:28 - CONCLUSION: 1. Cardiomegaly. 2. Bibasilar atelectasis and/or fibrotic scarring. 3. No focal alveolar consolidation or pulmonary edema. Nakul Byrd MD Patient with some relief of symptoms with SL nitro. Morphine did help take away pt's chest pain. Plan to obs in chest pain unit at this time Diagnosis Primary Impression: Chest pain Admitting Information Admitting Physician Requests: Observation Sharon Bess DO Jul 27, 2017 20:03
[2017-07-27 20:19] LABS: AUTOMATED NEUTROPHIL # 7.3 TH/MM3 (1.8-7.7); BASOPHIL # 0.1 TH/MM3 (0-0.2); BASOPHIL % 0.6 % (0.0-2.0); EOSINOPHIL # 0.1 TH/MM3 (0-0.4); EOSINOPHIL % 0.7 % (0.0-4.0); HEMATOCRIT 34.9 % (39.0-51.0); HEMO FLAGS DIFF FINAL; LYMPH % 6.3 % (9.0-44.0); LYMPHOCYTE # 0.6 TH/MM3 (1.0-4.8); MEAN CELL VOLUME 103.7 FL (80.0-100.0); MEAN CORPUSCULAR HEMOGLOBIN 33.2 PG (27.0-34.0); MONO % 9.8 % (0.0-8.0); NEUT % 82.6 % (16.0-70.0); PLATELET COUNT 227 TH/MM3 (150-450); RED BLOOD COUNT 3.36 MIL/MM3 (4.50-5.90); RED CELL DISTRIBUTION WIDTH 16.4 % (11.6-17.2); WHITE BLOOD COUNT 8.8 TH/MM3 (4.0-11.0)
[2017-07-27 20:29] LABS: INTERNATIONAL NORMALIZED RATIO 1.1 RATIO; PROTHROMBIN TIME - PATIENT 12.1 SEC (9.8-11.6)
[2017-07-27 20:31] LABS: ANION GAP 10 MEQ/L (5-15); AST (GOT) 12 U/L (15-37); BICARBONATE 26.3 MEQ/L (21.0-32.0); BLOOD UREA NITROGEN 63 MG/DL (7-18); CHLORIDE 99 MEQ/L (98-107); GLOMERULAR FILTRATION RATE 11 ML/MIN (>89); MAGNESIUM 2.1 MG/DL (1.5-2.5); POTASSIUM 4.6 MEQ/L (3.5-5.1); SODIUM (NA) 135 MEQ/L (136-145)
[2017-07-27 20:32] LABS: ALT (GPT) 20 U/L (12-78)
[2017-07-27 20:36] LABS: ALKALINE PHOSPHATASE 121 U/L (45-117); TOTAL BILIRUBIN ADULT 0.6 MG/DL (0.2-1.0)
[2017-07-27 20:38] LABS: CREATINE KINASE 32 U/L (39-308)
[2017-07-27] MEDS ORDERED: MORPHINE SULFATE 4 MG/ML INJ IV PUSH ONE (21:15)
[2017-07-28 04:16] VITALS: BP 128/60; PULSE 63; RESP 18; TEMP 97.8; O2SAT 100
[2017-07-28 08:05] VITALS: BP 138/62; PULSE 65; RESP 18; TEMP 98.1; O2SAT 96
--- NOTE | 2017-07-28 08:10 | HHI.HP ---
HPI Primary Care Physician Myla Upton MD Chief Complaint Chest pain History of Present Illness 87-year-old male with history of hypertension, heart failure with preserved LV function, aortic stenosis, and end-stage kidney disease presents to emergency room for further evaluation of chest pain. Onset yesterday around noon after eating lunch. Location substernal and right anterior chest. Characterized as a "ache." No radiation of pain. No associated symptoms of nausea, vomiting, diaphoresis, or shortness of breath. Duration has been constant. Pain continued into the evening therefore came to the emergency room for further evaluation. Initially pain level rated 5/10, currently pain level rated 1/10. Precipitating factors he relates to pulling a muscle. Reports he rides a motor scooter and yesterday at lunch the table he was sitting a lot. Difficult for him to grab his O2 condenser and medication bag, making him twist awkwardly. Shortly after lunch he noticed chest pain. No known relieving factors. Chest pain is reproducible upon palpation. Review of Systems General: No recent illness, fever, or chills. Has been his general state of health. CV: As stated above. Currently rates chest pain 1/10 anterior chest wall. RESP: No recent URI, cough, or sputum production. GI: No nausea or vomiting. Reports constipation this morning since receiving morphine in the ER, stating he is sensitive his bowels are sensitive to narcotics. No pain. No change in appetite. EXT: No lower leg edema, no paraesthesias MS: No discomfort or change in ROM, requires a motorized scooter for mobility. NEURO: No LOC SKIN: No rashes, no concerning lesions Past Family Social History Allergies: Coded Allergies: nitrofurantoin (Unverified Allergy, Severe, CAUSED "C DIFF" INFECTION, ) penicillin G (Unverified Allergy, Mild, RASH, 07/27/17) vancomycin (Unverified Adverse Reaction, Intermediate, RASH, 07/27/17) Past Medical History Hypertension, hyperlipidemia, TIA, end-stage renal disease, dialysis Thursday, , Thursday. Heart failure with preserved LV function, aortic stenosis, proximal A. fib, sleep apnea hypothyroidism, GERD, prostate cancer, history of C. difficile, melanoma Past Surgical History Bilateral carotid endarterectomy, tonsillectomy, [id number] bypass, partial right index finger resection Reported Medications Active Furosemide 40 Mg Tab 40 Mg PO BID Zaleplon 5 Mg Cap 5 Mg PO HS PRN Melatonin 5 Mg Tab 3 Mg PO HS Renvela (Sevelamer Carbonate) 800 Mg Tab 1,600 Mg PO TID Zantac (Ranitidine HCl) 150 Mg Tab 150 Mg PO DAILY Dulera 120 Act Inh (Mometasone-Formoterol 120 Act Inh) 200-5 Mcg/Act Inh 2 Puff INH BID Culturelle (Lactobacillus Rhamnosus (GG)) 10 B Cell Cap 50 Mg PO DAILY Docusate Sodium 100 Mg Cap 100 Mg PO BID Cilostazol 50 Mg Tab 50 Mg PO BID Lipitor (Atorvastatin Calcium) 40 Mg Tab 40 Mg PO HS Eliquis (Apixaban) 5 Mg Tab 5 Mg PO DAILY Amiodarone (Amiodarone HCl) 200 Mg Tab 200 Mg PO DAILY Ventolin Hfa 18 GM Inh (Albuterol Sulfate) 90 Mcg/Act Aer 2 Puff INH Q6H PRN Enulose Liq (Lactulose (Encephalopathy) Liq) 10 Gm/15 Ml Soln 30 Ml PO Q6HR PRN Levothyroxine (Levothyroxine Sodium) 88 Mcg Tab 125 Mcg PO DAILY Claritin (Loratadine) 10 Mg Cap 5 Mg PO BID [place]-Galo Rx (B-Complex W/ C & Folic Acid) 1 Tab 1 Tab PO DAILY Sennosides 8.6 Mg Tab 17.2 Mg PO HS Tamsulosin (Tamsulosin HCl) 0.4 Mg Cap 0.4 Mg PO HS Active Ordered Medications Current Medications Medications (Trade) Dose Ordered Sig/Bill Route Start Time Stop Time Status Last Admin (NS Flush) 2 ml UNSCH PRN IVF 07/27/17 19:30 Social History Known hypertension and hyperlipidemia. No known diabetes. Requires motorized scooter for mobility. . Past cardiac testing Patient's table tender is Dr. Estrellita Reyes. Echocardiogram completed a few months ago, repeat due next month. No recent stress testing. Physical Exam Vital Signs Vital Signs Date Time Temp Pulse Resp B/P (MAP) Pulse Ox O2 Delivery O2 Flow Rate FiO2 07/28/17 08:05 98.1 65 18 138/62 (87) 96 07/28/17 04:16 97.8 63 18 128/60 (82) 100 07/27/17 23:19 98.0 63 18 120/57 (78) 100 07/27/17 21:37 62 18 114/56 (75) 97 Nasal Cannula 2.00 07/27/17 21:20 62 18 128/60 (82) 98 Nasal Cannula 2.00 07/27/17 20:54 61 18 129/59 (82) 98 Nasal Cannula 2.00 07/27/17 20:31 62 20 142/63 (89) 97 Nasal Cannula 2.00 07/27/17 19:38 18 98 Nasal Cannula 2.00 07/27/17 19:31 98.1 64 20 149/67 (94) 99 07/27/17 19:31 99 Nasal Cannula 2.00 Physical Exam GENERAL: Alert WN, WD, NAD, pleasant, elderly male HEAD: NC, AT CV: RRR, 3/6 aortic stenosis murmur, no rub, no gallop, no JVD, S1-S2 no S3-S4. Bilateral carotid bruits noted most likely referred sounds from aortic murmur. Right anterior chest wall pain reproducible with palpation. RESP: Clear lungs throughout bilateral, no crackles, wheeze, rhonchi, symmetrical chest rise, nonlabored, able to speak in full sentences ABD: Soft, NT, ND, no masses, positive bowel tones EXT: Pulses +24, trace bilateral pedal edema MS: Normal tone 4 extremities, full range of motion NEURO: CN II through CN XII grossly intact, motor strength 5/5 PSYCH: A+O 3, pleasant affect, appropriate speech, appropriate mood and affect , insight and judgment SKIN: Normal turgor, normal texture, warm, dry Laboratory Laboratory Tests Test 07/27/17 19:55 07/27/17 23:11 07/28/17 00:10 White Blood Count 8.8 Red Blood Count 3.36 Hemoglobin 11.2 Hematocrit 34.9 Mean Corpuscular Volume 103.7 Mean Corpuscular Hemoglobin 33.2 Mean Corpuscular Hemoglobin Concent 32.0 Red Cell Distribution Width 16.4 Platelet Count 227 Mean Platelet Volume 8.8 Neutrophils (%) (Auto) 82.6 Lymphocytes (%) (Auto) 6.3 Monocytes (%) (Auto) 9.8 Eosinophils (%) (Auto) 0.7 Basophils (%) (Auto) 0.6 Neutrophils # (Auto) 7.3 Lymphocytes # (Auto) 0.6 Monocytes # (Auto) 0.9 Eosinophils # (Auto) 0.1 Basophils # (Auto) 0.1 CBC Comment DIFF FINAL Differential Comment Prothrombin Time 12.1 Prothromb Time International Ratio 1.1 Activated Partial Thromboplast Time 30.0 Blood Urea Nitrogen 63 Creatinine 4.97 Random Glucose 126 Total Protein 6.8 Albumin 3.4 Calcium Level 8.9 Magnesium Level 2.1 Alkaline Phosphatase 121 Aspartate Amino Transf (AST/SGOT) 12 Alanine Aminotransferase (ALT/SGPT) 20 Total Bilirubin 0.6 Sodium Level 135 Potassium Level 4.6 Chloride Level 99 Carbon Dioxide Level 26.3 Anion Gap 10 Estimat Glomerular Filtration Rate 11 Total Creatine Kinase 32 25 19 Troponin I 0.04 0.04 0.04 B-Type Natriuretic Peptide 421 Lipase 109 Result Diagram: 07/27/17195407/27/171954 Imaging Last Impressions Chest X-Ray 07/27/171925 Signed Impressions: Service Date/Time: Thursday, July 27, 2017 19:28 - CONCLUSION: 1. Cardiomegaly. 2. Bibasilar atelectasis and/or fibrotic scarring. 3. No focal alveolar consolidation or pulmonary edema. Nakul Byrd MD Course EKG First-degree AV block, left axis deviation, Q waves inferiorly in leads III and AVF, nonspecific ST T-wave changes (compared to previous EKGs) Caprini VTE Risk Assessment Caprini VTE Risk Assessment: Mod/High Risk (score >= 2) Caprini Risk Assessment Model Point Value = 1 Point Value = 2 Point Value = 3 Point Value = 5 Age 41-60 Minor surgery BMI > 25 kg/m2 Swollen legs Varicose veins or History of unexplained or recurrent spontaneous Oral contraceptives or hormone replacement Sepsis (< 1 month) Serious lung disease, including pneumonia (< 1 month) Abnormal pulmonary function Acute myocardial infarction Congestive heart failure (< 1 month) History of inflammatory bowel disease Medical patient at bed rest Age 61-74 Arthroscopic surgery Major open surgery (> 45 min) Laparoscopic surgery (> 45 min) Malignancy Confined to bed (> 72 hours) Immobilizing plaster cast Central venous access Age >= 75 History of VTE Family history of VTE Factor V Leiden Prothrombin [id number] Lupus anticoagulant Anticardiolipin antibodies Elevated serum homocysteine Heparin-induced thrombocytopenia Other congenital or acquired thrombophilia Stroke (< 1 month) Elective arthroplasty Hip, pelvis, or leg fracture Acute spinal cord injury (< 1 month) Prophylaxis Regimen Total Risk Factor Score Risk Level Prophylaxis Regimen 0-1 Low Early ambulation 2 Moderate Order ONE of the following: *Sequential Compression Device (SCD) *Heparin 5000 units SQ BID 3-4 Higher Order ONE of the following medications: *Heparin 5000 units SQ TID *Enoxaparin/Lovenox 40 mg SQ daily (WT < 150 kg, CrCl > 30 mL/min) *Enoxaparin/Lovenox 30 mg SQ daily (WT < 150 kg, CrCl > 10-29 mL/min) *Enoxaparin/Lovenox 30 mg SQ BID (WT < 150 kg, CrCl > 30 mL/min) AND/OR *Sequential Compression Device (SCD) 5 or more Highest Order ONE of the following medications: *Heparin 5000 units SQ TID (Preferred with Epidurals) *Enoxaparin/Lovenox 40 mg SQ daily (WT < 150 kg, CrCl > 30 mL/min) *Enoxaparin/Lovenox 30 mg SQ daily (WT < 150 kg, CrCl > 10-29 mL/min) *Enoxaparin/Lovenox 30 mg SQ BID (WT < 150 kg, CrCl > 30 mL/min) AND *Sequential Compression Device (SCD) Assessment and Plan Assessment and Plan #1 Chest wall pain-admitted to chest pain center. Ruled out with 3 sets of EKGs , cardiac enzymes, and monitored overnight. Seen and evaluated by Dr. Estrellita Reyes. Patient in the past has declined further cardiac testing cardiac catheterization and stress testing. Patient does not want any further testing at this time. Chest pain clearly musculoskeletal and easily reproduced with palpation, his decision is appropriate. Will discharge this morning, instructed to keep follow-up appointment next month for repeat echocardiogram. Patient agreeable to plan of care. #2 Chronic renal failure-dialysis Thursday, , and Thursday. Appointment is scheduled for 1000. Era Lawson Jul 28, 2017 08:10
--- NOTE | 2017-07-28 08:12 | HHI.DCPOC ---
Discharge Care Plan Diagnosis: (1) Chest wall pain (2) Chronic kidney disease (3) CHF (congestive heart failure) (4) Dependent on hemodialysis Goals to Promote Your Health * To prevent worsening of your condition and complications * To maintain your health at the optimal level Directions to Meet Your Goals Take your medications as prescribed Follow your dietary instruction Follow activity as directed Keep your appointments as scheduled Take your immunizations and boosters as scheduled If your symptoms worsen call your PCP, if no PCP go to Urgent Care Center or Emergency Room Smoking is Dangerous to Your Health. Avoid second hand smoke Call the 24-hour hour crisis hotline for domestic abuse at Era Lawson Jul 28, 2017 08:12
--- NOTE | 2017-07-28 18:31 | EKG ---
Date Performed: 07/27/2017 Time Performed: 19:29:46 PTAGE: 87 years EKG: Sinus rhythm POSSIBLE LEFT ATRIAL ENLARGEMENT MODERATE INTRAVENTRICULAR CONDUCTION DELAY ST DEVIATION AND MODERAT E T-WAVE ABNORMALITY, CONSIDER ANTERIOR ISCHEMIA ABNORMAL ECG ST changes are new PREVIOUS TRACING : 12/21/2016 05.27 DOCTOR: Estrellita Reyes Interpretating Date/Time 07/28/2017 18:30:47
--- NOTE | 2017-07-28 18:32 | EKG ---
Date Performed: 07/28/2017 Time Performed: 04:53:35 PTAGE: 87 years EKG: Sinus rhythm WITH FIRST DEGREE AV BLOCK ST DEVIATION AND MODERATE T-WAVE ABNORMALITY, CONSIDER ANTERIOR ISCHEMIA ABNORMAL ECG Since PREVIOUS TRACING , no significant change noted PREVIOUS TRACIN07/27/2017 23.27 DOCTOR: Estrellita Reyes Interpretating Date/Time 07/28/2017 18:31:57
--- NOTE | 2017-07-28 18:32 | EKG ---
Date Performed: 07/27/2017 Time Performed: 23:27:51 PTAGE: 87 years EKG: Sinus rhythm WITH FIRST DEGREE AV BLOCK POSSIBLE INFERIOR MYOCARDIAL INFARCTION MODERATE T-WAVE ABNORMALITY, CONS IDER ANTERIOR ISCHEMIA ABNORMAL ECG Since PREVIOUS TRACING , no significant change noted PREVIOUS TRACIN07/27/2017 19.29 DOCTOR: Estrellita Reyes Interpretating Date/Time 07/28/2017 18:31:36
== END 2017-07-28 09:26 | disposition home or self-care (01) ==
LOC: NEPE 19:09 → NEDA 21:47 → NEPFCDU 22:49
PROVIDERS: ADMIT Internal Medicine Cardiovascular Disease; ATTEND Internal Medicine Cardiovascular Disease
DX: R07.89 Other chest pain (principal); I13.2 Hypertensive heart and chronic kidney disease with heart failure and with stage 5 chronic kidney disease, or end stage renal disease; N18.6 End stage renal disease; I50.9 Heart failure, unspecified; I48.91 Unspecified atrial fibrillation; I73.9 Peripheral vascular disease, unspecified; D63.1 Anemia in chronic kidney disease; R11.0 Nausea; J44.9 Chronic obstructive pulmonary disease, unspecified; E78.00 Pure hypercholesterolemia, unspecified; K21.9 Gastro-esophageal reflux disease without esophagitis; E07.9 Disorder of thyroid, unspecified; M10.9 Gout, unspecified; G47.30 Sleep apnea, unspecified; N40.0 Benign prostatic hyperplasia without lower urinary tract symptoms; Z85.820 Personal history of malignant melanoma of skin; Z79.01 Long term (current) use of anticoagulants; Z99.2 Dependence on renal dialysis; Z86.73 Personal history of transient ischemic attack (TIA), and cerebral infarction without residual deficits
CPT/HCPCS: 71010; 80053; 82550; 83690; 83735; 83880; 84484; 85025; 85610; 85730; 93005; 96374; 99285; G0378; J2270